=== PATIENT | female | born 1985 | race Caucasian/White ===

== ENCOUNTER → 2020-05-03 16:14 | Outpatient (CLI) | payer OTHER, MEDICAID, SELFPAY ==
[2020-05-03 17:40] LABS: Add Manual Diff / Slide Review NO; Basophils Absolute Auto 100 /uL (0-100); Basophils Percent Auto 0.8 % (0-2); Eosinophils Absolute Auto 500 /uL (0-450); Eosinophils Percent Auto 5.2 % (2-4); Hematocrit 38.3 % (36-46); Hemoglobin 13.2 g/dL (12.0-16.0); Lymphocytes Absolute Auto 3000 /uL (1100-4500); Lymphocytes Percent Auto 28.9 % (25-40); Mean Corpuscular HGB Conc 34.5 % (30-36); Mean Corpuscular Hemoglobin 27.6 PG (26-34); Mean Corpuscular Volume 79.9 fL (80-100); Monocytes Absolute Auto 700 /uL (0-900); Monocytes Percent Auto 7.3 % (3-14); Neutrophils Absolute Auto 6000 /uL (1500-7000); Neutrophils Percent Auto 57.8 % (50-75); Platelet Count 285 X10^3/uL (150-400); Red Blood Cell Count 4.79 X10^6/uL (4.0-5.2); Red Cell Distribution Width 13.3 % (11.6-14.8); White Blood Cell Count 10.3 X10^3/uL (4.5-11.0)
[2020-05-03 18:18] LABS: Alanine Aminotransferase 42 IU/L (<35); Albumin 4.6 g/dL (3.5-5.0); Albumin Globulin Ratio 1.4 (1.0-2.8); Alkaline Phosphatase 76 U/L (38-126); Aspartate Aminotransferase 42 IU/L (14-36); BUN Creatinine Ratio 21.1 (6-22); Bilirubin Total 0.4 mg/dL (0.2-1.3); Blood Urea Nitrogen 15 mg/dL (7-17); Calcium 9.9 mg/dL (8.4-10.2); Carbon Dioxide 25 mmol/L (22-32); Chloride 102 mmol/L (98-107); Estimated Glomerular Filt Rate > 60.0 mL/min (>60); Globulin 3.2 g/dL (1.7-4.1); Glucose 84 mg/dL (70-100); HEMOLYSIS 23 (0-50); Potassium 4.1 mmol/L (3.4-5.1); Sodium 136 mmol/L (137-145); Total Protein 7.8 g/dL (6.3-8.2)
[2020-05-03 19:01] LABS: HIV 1 & 2 Ab/Ag 4th Gen Combo NEGATIVE (NEGATIVE)
[2020-05-04 05:11] LABS: HBsAg Screen Negative (Negative); Hepatitis A Antibody IgM Negative (Negative); Hepatitis B Core Antibody IgM Negative (Negative); Hepatitis C Antibody <0.1 s/co ratio (0.0-0.9)
== END ==
PROVIDERS: Family Provider Family Medicine; PCP Family Medicine; Referring Provider Family Medicine; Visit Provider Family Medicine
DX: F19.11 Other psychoactive substance abuse, in remission (principal)
CPT/HCPCS: 36415; 80053; 80074; 85025; 87389

== ENCOUNTER 2022-05-12 14:30 | Outpatient (RCR) | payer OTHER, MEDICAID, SELFPAY ==
--- NOTE | 2021-12-30 16:39 | PT.OIE ---
Current Diagnoses Hallux valgus (acquired), left foot (12/30/21) Flat foot [pes planus] (acquired), unspecified foot (12/30/21) Other acquired deformities of left foot (12/30/21) Difficulty in walking, not elsewhere classified (12/30/21) Other abnormalities of gait and mobility (12/30/21) Weakness (12/30/21) Visit Care Team Role Provider Type Milton Cuevas MD Family Provider Non-Staff Specialty: Family Practice Address: [address] [place] [address], [address], [place], [address] Email: Pipo Whyte DPM Attending Provider Non-Staff Primary Care Provider Referring Provider Specialty: Podiatry Address: [address] [place] [address], [phone] Email: Physical Therapy Initial Evaluation PT-OP-A Visit Information Start: 12/26/21 17:49 Freq: Status: Active Protocol: Document 12/30/21 15:18 [facility] (Rec: 12/30/21 16:31 [facility] [id number]) Out-Patient Physical Therapy Visit Information Visit Information Visit Type Initial Evaluation Visit Note 24 visits in a year Visit Start Time 15:20 Visit Stop Time 16:02 Total Visit Minutes 42 Visit Number 1 Number of FILM PRODUCER Visits 0 PT-OP-B Current Condition Start: 12/26/21 17:49 Freq: Status: Active Protocol: Document 12/30/21 15:18 [facility] (Rec: 12/30/21 16:31 [facility] [id number]) Current Condition History of Current Condition Onset Date Sep 13 sx Current Complaints s/p L foot surgery History of Current Condition Pt reports foot pain all the time since injury jumping on tramp in where she sprained ankle. She was getting really painful to walk so she couldn 't do her duties for work. 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 She sees Dr. Dao tomorrow. Pt has been wearing her post op shoe mostly but is allowed to wear her sneakers but they feel too tight. Pt likes to color, going to [employer] study, gardening, going for walks ( was limited prior to surgery d /t pain). No other history of joint pain. Has not tried much walking. Prior Treatments and Tests surgery Aug-L foot medial calcaneal slide osteotomy w/Alvarez Calcaneal osteotomy, correction of L hallux valgus w/arthrodesis of first tartsometatarsal jt, L bunion correction, L gastroc recession Treatment Goals Patient/Caregiver Goals Be able to go up/down ladder cart while carrying heavy objects to stock things, start gardening, be able to get up/ down from the ground indep, be able to go for walks, get a good workout routine for good fitness habits Personal Factors Other Personal Factors That May Effect depression, anxiety, Therapy/Recovery schitzophrenia, hx drug abus PT-OP-C Subjective Start: 12/26/21 17:49 Freq: Status: Active Protocol: Document 12/30/21 15:18 [facility] (Rec: 12/30/21 16:31 [facility] [id number]) Patient Questionnaires Foot & Ankle Ability Measure- ADL and Sports FAAM-ADL Score 40/84 FAAM-Sport Score 2 Lower Extremity Functional Scale LEFS Score 23/80 OP-PT Pain Assessment Location L foot/ankle Pain Location Details med & lat ankle, ant ankle and dorsum of foot Intensity 6 Scale Used Numeric (0 - 10) Description Shooting,Tightness,With Movement Description- Other like it has a knot in it Frequency Intermittent Variations/Patterns numbness 4-5th toe & MT Pain Aggravating Factors Standing Other Pain Aggravating Factors wearing shoes, stand>10 min, starting moving, cold Pain Alleviating Factors Cold,Medication Other Pain Alleviating Factors naproxen prn PT-OP-F Manual Assessment Start: 12/26/21 17:49 Freq: Status: Active Protocol: Document 12/30/21 15:18 [facility] (Rec: 12/30/21 16:31 [facility] [id number]) Manual Assessments Soft Tissue Assessment Soft Tissue Mobility Assessment Pt still has some scabbing towards ant aspect of lat scar and med scar Other Manual Assessments Other Manual Assessments 21.1 cm L MT base R 20.9 25.3 cm L malleoli R 24.1 PT-OP-G Mobility & Gait Start: 12/26/21 17:49 Freq: Status: Active Protocol: Document 12/30/21 15:18 [facility] (Rec: 12/30/21 16:31 [facility] [id number]) OP Gait Assessment Comments Gait Comments Dec stance time on LLE and no push off LLE, slow gait PT-OP-K Range of Motion Start: 12/26/21 17:49 Freq: Status: Active Protocol: Document 12/30/21 15:18 [facility] (Rec: 12/30/21 16:31 [facility] [id number]) Ankle and Foot Goniometric Range of Motion Ankle and Foot Right Active Dorsiflexion with Knee Flexed 5 Dorsiflexion with Knee Extended 9 Plantarflexion 50 Inversion 28 Eversion 12 Comments lacking DF to neutral in knee ext positon Left Active Dorsiflexion with Knee Flexed 2 Dorsiflexion with Knee Extended 9 Plantarflexion 50 Inversion 8 Eversion 12 Comments lacking DF to neutral in knee ext positon Toe Range of Motion Toe Right Great Toe MTP Extension Active (degrees) 30 MTP Extension Passive (degrees) 55 Left Great Toe MTP Extension Active (degrees) 10 MTP Extension Passive (degrees) 15 Comments 20 deg valgus PT-OP-L Special Tests Start: 12/26/21 17:49 Freq: Status: Active Protocol: Document 12/30/21 15:18 [facility] (Rec: 12/30/21 16:31 [facility] [id number]) Special Tests Other Special Tests Special Tests 45 deg R HS tightness SLR, 64 Deg L PT-OP-M Strength Start: 12/26/21 17:49 Freq: Status: Active Protocol: Document 12/30/21 15:18 [facility] (Rec: 12/30/21 16:31 [facility] [id number]) Hip Strength Hip Manual Muscle Testing Right Flexion (L2) 4+ Good+ Extension (S1) 4 Good Abduction 4 Good External Rotation 4- Good- Internal Rotation 4 Good Left Flexion (L2) 4- Good- Extension (S1) 3+ Fair+ Abduction 4 Good External Rotation 4- Good- Internal Rotation 3 Fair Knee Strength Knee Manual Muscle Testing Right Flexion (S2) 5 Normal Extension (L3) 5 Normal Left Flexion (S2) 5 Normal Extension (L3) 5 Normal Ankle/Foot Strength Ankle and Foot Manual Muscle Testing Right Dorsiflexion (L4) 5 Normal Plantarflexion (S1) 5 Normal Inversion 5 Normal Eversion (S1) 5 Normal Comments 20 heel raises Left Dorsiflexion (L4) 4 Good Plantarflexion (S1) 3- Fair- Inversion 3+ Fair+ Eversion (S1) 3+ Fair+ Comments pain eversion; unable to do heel raises Toe Strength Toe Manual Muscle Testing Right Great Toe Flexion 5 Normal Extension 5 Normal Left Great Toe Flexion 3+ Fair+ Extension 4- Good- PT-OP-T Assessment and Plan Start: 12/26/21 17:49 Freq: Status: Active Protocol: Document 12/30/21 15:18 [facility] (Rec: 12/30/21 16:31 [facility] [id number]) Physical Therapy Assessment Rehab Potential Rehabilitation Potential Good Evaluation Complexity Number of Personal Factors/Comorbidities 3 or More Number of Body Systems Impaired 4 or More Clinical Presentation at Evaluation Evolving Impairments Impairments Activity Tolerance,Balance, Functional Activities, Functional Mobility,Gait,Pain, ROM,Soft Tissue Mobility, Strength Goals balance Ex Chef Goal (LTG) pt will be able to do SLS 20 sec B w/o LOB to show improved stability. LTG Duration 04/01/22 strength Short Term Goal (STG) Pt will be indep w/HEP STG Duration 01/30/22 Ex Chef Goal (LTG) Pt will score at least 5/5 on BLE MMT to show improved strength to allow pt to do typical activities w/o inc pain. LTG Duration 04/01/22 ROM Short Term Goal (STG) Pt will improve to DF to neutral on L in knee ext position. STG Duration 02/27/22 Fdc Goal (LTG) Pt will have within 5 deg ROM of L ankle to R ankle to improve pt ability to negotiate the community. LTG Duration 04/01/22 work Short Term Goal (STG) Pt will be able to return to light duty work w/pain no greater than 4/10 STG Duration 02/27/22 Ex Chef Goal (LTG) Pt will be able to return to full duty work w/o L foot/ ankle pain greater than 2/10 LTG Duration 04/01/22 gardening Short Term Goal (STG) Pt will be able to get up/down from the ground indep to allow for gardening. STG Duration 02/27/22 Fdc Goal (LTG) Pt will be able to do all tasks for gardening w/o inc pain. LTG Duration 03/29/22 LEFS Impairment 23/80 Short Term Goal (STG) Pt will improved LEFS to at least 45/80 to show improved function. STG Duration 02/27/22 Fdc Goal (LTG) Pt will improved LEFS to at least 70/80 to show improved function. LTG Duration 04/01/22 Assessment Summary Assessment Pt presents 3.5 months s/p L foot medial calcaneal slide osteotomy w/Alvarez Calcaneal osteotomy, correction of L hallux valgus w/arthrodesis of first tartsometatarsal jt, L bunion correction, and L gastroc recession d/t chronic ankle pain over past 20 years after an incident on a [employer] where she sprained her ankle. She has some dec healing of incisions, swelling of L ankle/foot, dec L ankle and toe ROM along w/dec LLE strength overall. She has not been able to wear a tennis shoe d/t swelling in L foot and ankle despite MD clearing her for this. 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 She would benefit from skilled PT to work on swelling, ROM, gait mechanics, LE strength, and balance to return pt to all typical activties w/dec pain. Physical Therapy Plan Frequency and Duration Frequency of Treatment 1-2x/week Duration of Treatment 3 months Plan of Care Start Date 12/30/21 Plan of Care End Date 04/01/22 Therapeutic Interventions Therapeutic Interventions Aquatic Therapy,Balance Training,Gait Training,Home Exercise Program,Joint Mobilizations,Manual Therapy, Neuromuscular Re-education, Patient/Caregiver Education, Self-Care/Home Management,Soft Tissue Mobilization,Taping, Therapeutic Activities, Therapeutic Exercises Modalities Cold Pack/Ice Massage,Electric Stimulation,Hot Packs, Infrared Therapy,Ultrasound Next Visit Focus/Plan Next Note Type Treatment Note Next Visit Plan towel calf stretch, ABCs & circles, tband 4 way, BAPS board, Manual to calf
--- NOTE | 2021-12-30 16:39 | PT.OPPOC ---
Physical, Occupational & Speech Therapy At [facility] Current Diagnoses Hallux valgus (acquired), left foot (12/30/21) Flat foot [pes planus] (acquired), unspecified foot (12/30/21) Other acquired deformities of left foot (12/30/21) Difficulty in walking, not elsewhere classified (12/30/21) Other abnormalities of gait and mobility (12/30/21) Weakness (12/30/21) Visit Care Team Role Provider Type Milton Cuevas MD Family Provider Non-Staff Specialty: Family Practice Address: [address] [place] [address], [address], [place], [address] Email: Pipo Whyte DPM Attending Provider Non-Staff Primary Care Provider Referring Provider Specialty: Podiatry Address: [address] [place] [address], [phone] Email: Plan Of Care PT-OP-T Assessment and Plan Start: 12/26/21 17:49 Freq: Status: Active Protocol: Document 12/30/21 15:18 [facility] (Rec: 12/30/21 16:31 [facility] [id number]) Physical Therapy Assessment Rehab Potential Rehabilitation Potential Good Evaluation Complexity Number of Personal Factors/Comorbidities 3 or More Number of Body Systems Impaired 4 or More Clinical Presentation at Evaluation Evolving Impairments Impairments Activity Tolerance,Balance, Functional Activities, Functional Mobility,Gait,Pain, ROM,Soft Tissue Mobility, Strength Goals balance Nursing Home Goal (LTG) pt will be able to do SLS 20 sec B w/o LOB to show improved stability. LTG Duration 04/01/22 strength Short Term Goal (STG) Pt will be indep w/HEP STG Duration 01/30/22 Nursing Home Goal (LTG) Pt will score at least 5/5 on BLE MMT to show improved strength to allow pt to do typical activities w/o inc pain. LTG Duration 04/01/22 ROM Short Term Goal (STG) Pt will improve to DF to neutral on L in knee ext position. STG Duration 02/27/[address] [employer] Goal (LTG) Pt will have within 5 deg ROM of L ankle to R ankle to improve pt ability to negotiate the community. LTG Duration 04/01/22 work Short Term Goal (STG) Pt will be able to return to light duty work w/pain no greater than 4/10 STG Duration 02/27/[address] [employer] Goal (LTG) Pt will be able to return to full duty work w/o L foot/ ankle pain greater than 2/10 LTG Duration 04/01/22 gardening Short Term Goal (STG) Pt will be able to get up/down from the ground indep to allow for gardening. STG Duration 02/27/[address] [employer] Goal (LTG) Pt will be able to do all tasks for gardening w/o inc pain. LTG Duration 03/29/22 LEFS Impairment 23/80 Short Term Goal (STG) Pt will improved LEFS to at least 45/80 to show improved function. STG Duration 02/27/[address] [employer] Goal (LTG) Pt will improved LEFS to at least 70/80 to show improved function. LTG Duration 04/01/22 Assessment Summary Assessment Pt presents 3.5 months s/p L foot medial calcaneal slide osteotomy w/Alvarez Calcaneal osteotomy, correction of L hallux valgus w/arthrodesis of first tartsometatarsal jt, L bunion correction, and L gastroc recession d/t chronic ankle pain over past 20 years after an incident on a trampoline where she sprained her ankle. She has some dec healing of incisions, swelling of L ankle/foot, dec L ankle and toe ROM along w/dec LLE strength overall. She has not been able to wear a tennis shoe d/t swelling in L foot and ankle despite MD clearing her for this. 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 She would benefit from skilled PT to work on swelling, ROM, gait mechanics, LE strength, and balance to return pt to all typical activties w/dec pain. Physical Therapy Plan Frequency and Duration Frequency of Treatment 1-2x/week Duration of Treatment 3 months Plan of Care Start Date 12/30/21 Plan of Care End Date 04/01/22 Therapeutic Interventions Therapeutic Interventions Aquatic Therapy,Balance Training,Gait Training,Home Exercise Program,Joint Mobilizations,Manual Therapy, Neuromuscular Re-education, Patient/Caregiver Education, Self-Care/Home Management,Soft Tissue Mobilization,Taping, Therapeutic Activities, Therapeutic Exercises Modalities Cold Pack/Ice Massage,Electric Stimulation,Hot Packs, Infrared Therapy,Ultrasound Next Visit Focus/Plan Next Note Type Treatment Note Next Visit Plan towel calf stretch, ABCs & circles, tband 4 way, BAPS board, Manual to calf Plan of Care Dates Plan of Care Start Date 12/30/21 Plan of Care End Date 04/01/22 Electronically Signed by: Bruna Sheikh, PT 12/30/21 [id number] If you are in agreement with this Plan of Care, please return a signed and dated copy. I have reviewed this Plan of Care and certify that the skilled therapy services above are required to meet the patient?s needs. Physician Signature Date Printed Name and Credentials Clinical Instructor Signature Printed Name and Credentials
--- NOTE | 2022-01-02 15:17 | PT.OTN ---
Current Diagnoses Hallux valgus (acquired), left foot (01/02/22) Flat foot [pes planus] (acquired), unspecified foot (01/02/22) Other acquired deformities of left foot (01/02/22) Difficulty in walking, not elsewhere classified (01/02/22) Other abnormalities of gait and mobility (01/02/22) Weakness (01/02/22) Physical Therapy Treatment Note PT-OP-A Visit Information Start: 12/26/21 17:49 Freq: Status: Active Protocol: Document 01/02/22 14:27 [facility] (Rec: 01/02/22 15:17 [facility] [id number]) Out-Patient Physical Therapy Visit Information Visit Information Visit Type Treatment Note Visit Note 24 visits in a year Visit Start Time 14:31 Visit Stop Time 15:14 Total Visit Minutes 43 Visit Number 2 Number of LINING PRINTER Visits 0 PT-OP-B Current Condition Start: 12/26/21 17:49 Freq: Status: Active Protocol: Document 12/30/21 15:18 [facility] (Rec: 12/30/21 16:31 [facility] [id number]) Current Condition History of Current Condition Onset Date Sep 13 sx Current Complaints s/p L foot surgery History of Current Condition Pt reports foot pain all the time since injury jumping on tramp in where she sprained ankle. She was getting really painful to walk so she couldn 't do her duties for work. 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 She sees Dr. Dao tomorrow. Pt has been wearing her post op shoe mostly but is allowed to wear her sneakers but they feel too tight. Pt likes to color, going to [employer] study, gardening, going for walks ( was limited prior to surgery d /t pain). No other history of joint pain. Has not tried much walking. Prior Treatments and Tests surgery Aug-L foot medial calcaneal slide osteotomy w/Alvarez Calcaneal osteotomy, correction of L hallux valgus w/arthrodesis of first tartsometatarsal jt, L bunion correction, L gastroc recession Treatment Goals Patient/Caregiver Goals Be able to go up/down ladder cart while carrying heavy objects to stock things, start gardening, be able to get up/ down from the ground indep, be able to go for walks, get a good workout routine for good fitness habits Personal Factors Other Personal Factors That May Effect depression, anxiety, Therapy/Recovery schitzophrenia, hx drug abus PT-OP-C Subjective Start: 12/26/21 17:49 Freq: Status: Active Protocol: Document 01/02/22 14:27 [facility] (Rec: 01/02/22 15:17 [facility] [id number]) OP-PT Subjective Patient Comments Patient Comments Pt reprots doing a lot of walking at stores this week and her foot was sore. was pleased w/foot at appt PT-OP-F Manual Assessment Start: 12/26/21 17:49 Freq: Status: Active Protocol: Document 12/30/21 15:18 [facility] (Rec: 12/30/21 16:31 [facility] [id number]) Manual Assessments Soft Tissue Assessment Soft Tissue Mobility Assessment Pt still has some scabbing towards ant aspect of lat scar and med scar Other Manual Assessments Other Manual Assessments 21.1 cm L MT base R 20.9 25.3 cm L malleoli R 24.1 PT-OP-G Mobility & Gait Start: 12/26/21 17:49 Freq: Status: Active Protocol: Document 12/30/21 15:18 [facility] (Rec: 12/30/21 16:31 [facility] [id number]) OP Gait Assessment Comments Gait Comments Dec stance time on LLE and no push off LLE, slow gait PT-OP-K Range of Motion Start: 12/26/21 17:49 Freq: Status: Active Protocol: Document 12/30/21 15:18 [facility] (Rec: 12/30/21 16:31 [facility] [id number]) Ankle and Foot Goniometric Range of Motion Ankle and Foot Right Active Dorsiflexion with Knee Flexed 5 Dorsiflexion with Knee Extended 9 Plantarflexion 50 Inversion 28 Eversion 12 Comments lacking DF to neutral in knee ext positon Left Active Dorsiflexion with Knee Flexed 2 Dorsiflexion with Knee Extended 9 Plantarflexion 50 Inversion 8 Eversion 12 Comments lacking DF to neutral in knee ext positon Toe Range of Motion Toe Right Great Toe MTP Extension Active (degrees) 30 MTP Extension Passive (degrees) 55 Left Great Toe MTP Extension Active (degrees) 10 MTP Extension Passive (degrees) 15 Comments 20 deg valgus PT-OP-L Special Tests Start: 12/26/21 17:49 Freq: Status: Active Protocol: Document 12/30/21 15:18 [facility] (Rec: 12/30/21 16:31 [facility] [id number]) Special Tests Other Special Tests Special Tests 45 deg R HS tightness SLR, 64 Deg L PT-OP-M Strength Start: 12/26/21 17:49 Freq: Status: Active Protocol: Document 12/30/21 15:18 [facility] (Rec: 12/30/21 16:31 [facility] [id number]) Hip Strength Hip Manual Muscle Testing Right Flexion (L2) 4+ Good+ Extension (S1) 4 Good Abduction 4 Good External Rotation 4- Good- Internal Rotation 4 Good Left Flexion (L2) 4- Good- Extension (S1) 3+ Fair+ Abduction 4 Good External Rotation 4- Good- Internal Rotation 3 Fair Knee Strength Knee Manual Muscle Testing Right Flexion (S2) 5 Normal Extension (L3) 5 Normal Left Flexion (S2) 5 Normal Extension (L3) 5 Normal Ankle/Foot Strength Ankle and Foot Manual Muscle Testing Right Dorsiflexion (L4) 5 Normal Plantarflexion (S1) 5 Normal Inversion 5 Normal Eversion (S1) 5 Normal Comments 20 heel raises Left Dorsiflexion (L4) 4 Good Plantarflexion (S1) 3- Fair- Inversion 3+ Fair+ Eversion (S1) 3+ Fair+ Comments pain eversion; unable to do heel raises Toe Strength Toe Manual Muscle Testing Right Great Toe Flexion 5 Normal Extension 5 Normal Left Great Toe Flexion 3+ Fair+ Extension 4- Good- PT-OP-Q Treatments Start: 12/26/21 17:49 Freq: Status: Active Protocol: Document 01/02/22 14:27 [facility] (Rec: 01/02/22 15:17 [facility] [id number]) Therapeutic Exercises Sitting Exercises BAPs Sitting Exercise Name 1. inver/eversion 2. PF/DF Side left Reps/Minutes 15 ea tband Sitting Exercise Name DF, PF Side left Reps/Minutes 10 ea stretch Sitting Exercise Name calf Side bilateral Equipment Used towel Reps/Minutes 30 secx2 ROM Sitting Exercise Name 1. ABCs 2. circles Side left Reps/Minutes 1. 1x 2. 15 ea direction Manual Therapy Treatment Soft Tissue Mobilization calf Body Location L Mobilization Type Rolling Intensity/Depth Moderate scar Body Location lat & post scar Mobilization Type Myofascial Release,Rolling Intensity/Depth Superficial Body Position Supine plantar fascia Body Location L Mobilization Type Rolling Intensity/Depth Moderate Body Position Supine Manual Techniques PROM Type L ankle PF, DF, inversion, eversion gentle PT-OP-T Assessment and Plan Start: 12/26/21 17:49 Freq: Status: Active Protocol: Document 01/02/22 14:27 [facility] (Rec: 01/02/22 15:17 [facility] [id number]) Physical Therapy Assessment Goals balance Logging Engineer Goal (LTG) pt will be able to do SLS 20 sec B w/o LOB to show improved stability. LTG Duration 04/01/22 strength Short Term Goal (STG) Pt will be indep w/HEP STG Duration 01/30/22 Logging Engineer Goal (LTG) Pt will score at least 5/5 on BLE MMT to show improved strength to allow pt to do typical activities w/o inc pain. LTG Duration 04/01/22 ROM Short Term Goal (STG) Pt will improve to DF to neutral on L in knee ext position. STG Duration 02/27/22 Senior Living Goal (LTG) Pt will have within 5 deg ROM of L ankle to R ankle to improve pt ability to negotiate the community. LTG Duration 04/01/22 work Short Term Goal (STG) Pt will be able to return to light duty work w/pain no greater than 4/10 STG Duration 02/27/22 Senior Living Goal (LTG) Pt will be able to return to full duty work w/o L foot/ ankle pain greater than 2/10 LTG Duration 04/01/22 gardening Short Term Goal (STG) Pt will be able to get up/down from the ground indep to allow for gardening. STG Duration 02/27/22 Logging Engineer Goal (LTG) Pt will be able to do all tasks for gardening w/o inc pain. LTG Duration 03/29/22 LEFS Impairment 23/80 Short Term Goal (STG) Pt will improved LEFS to at least 45/80 to show improved function. STG Duration 02/27/22 Logging Engineer Goal (LTG) Pt will improved LEFS to at least 70/80 to show improved function. LTG Duration 04/01/22 Assessment Summary Assessment Pt had much improved gait after manual and felt relief. Improved DF and PF but very rigid for inversion/eversion. She did well with exercises but limited in circles w/lat movements. Physical Therapy Plan Frequency and Duration Frequency of Treatment 1-2x/week Duration of Treatment 3 months Plan of Care Start Date 12/30/21 Plan of Care End Date 04/01/22 Next Visit Focus/Plan Next Note Type Treatment Note Next Visit Plan review exercises, manual to calf as tolerated and PROM
--- NOTE | 2022-01-07 15:21 | PT.OTN ---
Current Diagnoses Hallux valgus (acquired), left foot (01/07/22) Flat foot [pes planus] (acquired), unspecified foot (01/07/22) Other acquired deformities of left foot (01/07/22) Difficulty in walking, not elsewhere classified (01/07/22) Other abnormalities of gait and mobility (01/07/22) Weakness (01/07/22) Physical Therapy Treatment Note PT-OP-A Visit Information Start: 12/26/21 17:49 Freq: Status: Active Protocol: Document 01/07/22 14:39 [facility] (Rec: 01/07/22 15:21 [facility] [id number]) Out-Patient Physical Therapy Visit Information Visit Information Visit Type Treatment Note Visit Note 24 visits in a year Visit Start Time 14:35 Visit Stop Time 15:15 Total Visit Minutes 40 Visit Number 3 Number of DIESEL TRACTOR OPERATOR Visits 0 PT-OP-B Current Condition Start: 12/26/21 17:49 Freq: Status: Active Protocol: Document 12/30/21 15:18 [facility] (Rec: 12/30/21 16:31 [facility] [id number]) Current Condition History of Current Condition Onset Date Sep 13 sx Current Complaints s/p L foot surgery History of Current Condition Pt reports foot pain all the time since injury jumping on tramp in where she sprained ankle. She was getting really painful to walk so she couldn 't do her duties for work. 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 She sees Dr. Dao tomorrow. Pt has been wearing her post op shoe mostly but is allowed to wear her sneakers but they feel too tight. Pt likes to color, going to [employer] study, gardening, going for walks ( was limited prior to surgery d /t pain). No other history of joint pain. Has not tried much walking. Prior Treatments and Tests surgery Aug-L foot medial calcaneal slide osteotomy w/Alvarez Calcaneal osteotomy, correction of L hallux valgus w/arthrodesis of first tartsometatarsal jt, L bunion correction, L gastroc recession Treatment Goals Patient/Caregiver Goals Be able to go up/down ladder cart while carrying heavy objects to stock things, start gardening, be able to get up/ down from the ground indep, be able to go for walks, get a good workout routine for good fitness habits Personal Factors Other Personal Factors That May Effect depression, anxiety, Therapy/Recovery schitzophrenia, hx drug abus PT-OP-C Subjective Start: 12/26/21 17:49 Freq: Status: Active Protocol: Document 01/07/22 14:39 [facility] (Rec: 01/07/22 15:21 [facility] [id number]) OP-PT Subjective Patient Comments Patient Comments Pt reports compliance w/ exercises and notes she feels like she has more motion now PT-OP-F Manual Assessment Start: 12/26/21 17:49 Freq: Status: Active Protocol: Document 12/30/21 15:18 [facility] (Rec: 12/30/21 16:31 [facility] [id number]) Manual Assessments Soft Tissue Assessment Soft Tissue Mobility Assessment Pt still has some scabbing towards ant aspect of lat scar and med scar Other Manual Assessments Other Manual Assessments 21.1 cm L MT base R 20.9 25.3 cm L malleoli R 24.1 PT-OP-G Mobility & Gait Start: 12/26/21 17:49 Freq: Status: Active Protocol: Document 12/30/21 15:18 [facility] (Rec: 12/30/21 16:31 [facility] [id number]) OP Gait Assessment Comments Gait Comments Dec stance time on LLE and no push off LLE, slow gait PT-OP-K Range of Motion Start: 12/26/21 17:49 Freq: Status: Active Protocol: Document 12/30/21 15:18 [facility] (Rec: 12/30/21 16:31 [facility] [id number]) Ankle and Foot Goniometric Range of Motion Ankle and Foot Right Active Dorsiflexion with Knee Flexed 5 Dorsiflexion with Knee Extended 9 Plantarflexion 50 Inversion 28 Eversion 12 Comments lacking DF to neutral in knee ext positon Left Active Dorsiflexion with Knee Flexed 2 Dorsiflexion with Knee Extended 9 Plantarflexion 50 Inversion 8 Eversion 12 Comments lacking DF to neutral in knee ext positon Toe Range of Motion Toe Right Great Toe MTP Extension Active (degrees) 30 MTP Extension Passive (degrees) 55 Left Great Toe MTP Extension Active (degrees) 10 MTP Extension Passive (degrees) 15 Comments 20 deg valgus PT-OP-L Special Tests Start: 12/26/21 17:49 Freq: Status: Active Protocol: Document 12/30/21 15:18 [facility] (Rec: 12/30/21 16:31 [facility] [id number]) Special Tests Other Special Tests Special Tests 45 deg R HS tightness SLR, 64 Deg L PT-OP-M Strength Start: 12/26/21 17:49 Freq: Status: Active Protocol: Document 12/30/21 15:18 [facility] (Rec: 12/30/21 16:31 [facility] [id number]) Hip Strength Hip Manual Muscle Testing Right Flexion (L2) 4+ Good+ Extension (S1) 4 Good Abduction 4 Good External Rotation 4- Good- Internal Rotation 4 Good Left Flexion (L2) 4- Good- Extension (S1) 3+ Fair+ Abduction 4 Good External Rotation 4- Good- Internal Rotation 3 Fair Knee Strength Knee Manual Muscle Testing Right Flexion (S2) 5 Normal Extension (L3) 5 Normal Left Flexion (S2) 5 Normal Extension (L3) 5 Normal Ankle/Foot Strength Ankle and Foot Manual Muscle Testing Right Dorsiflexion (L4) 5 Normal Plantarflexion (S1) 5 Normal Inversion 5 Normal Eversion (S1) 5 Normal Comments 20 heel raises Left Dorsiflexion (L4) 4 Good Plantarflexion (S1) 3- Fair- Inversion 3+ Fair+ Eversion (S1) 3+ Fair+ Comments pain eversion; unable to do heel raises Toe Strength Toe Manual Muscle Testing Right Great Toe Flexion 5 Normal Extension 5 Normal Left Great Toe Flexion 3+ Fair+ Extension 4- Good- PT-OP-Q Treatments Start: 12/26/21 17:49 Freq: Status: Active Protocol: Document 01/07/22 14:39 [facility] (Rec: 01/07/22 15:21 [facility] [id number]) Therapeutic Exercises Sitting Exercises BAPs Sitting Exercise Name 1. inver/eversion 2. PF/DF 3. circles Side left Reps/Minutes 1 &2.15 ea 3. 8 ea tband Sitting Exercise Name DF, Side left Equipment Used L2 Reps/Minutes 15 ROM Sitting Exercise Name 1. ABCs 2. circles Side left Reps/Minutes 1. 1x 2. 15 ea direction Standing Exercises heel raises Side bilateral Reps/Minutes 8 Comments stopped d/t foot pain Manual Therapy Treatment Soft Tissue Mobilization scar Body Location lat & post scar & med proximal scar Mobilization Type Myofascial Release,Rolling Intensity/Depth Superficial Body Position Supine plantar fascia Body Location L Mobilization Type Rolling Intensity/Depth Moderate Body Position Supine Manual Techniques PROM Type L ankle PF, DF, inversion, eversion gentle Neuro Re-Education Treatment Balance Activities foam Comments WBOS & NBOS w/EC staggered stance w/head turns B bosu Comments standing balance 2x45 sec PT-OP-T Assessment and Plan Start: 12/26/21 17:49 Freq: Status: Active Protocol: Document 01/07/22 14:39 [facility] (Rec: 01/07/22 15:21 [facility] [id number]) Physical Therapy Assessment Goals balance Fdc Goal (LTG) pt will be able to do SLS 20 sec B w/o LOB to show improved stability. LTG Duration 04/01/22 strength Short Term Goal (STG) Pt will be indep w/HEP STG Duration 01/30/22 Sensor Operator Goal (LTG) Pt will score at least 5/5 on BLE MMT to show improved strength to allow pt to do typical activities w/o inc pain. LTG Duration 04/01/22 ROM Short Term Goal (STG) Pt will improve to DF to neutral on L in knee ext position. STG Duration 02/27/22 Fdc Goal (LTG) Pt will have within 5 deg ROM of L ankle to R ankle to improve pt ability to negotiate the community. LTG Duration 04/01/22 work Short Term Goal (STG) Pt will be able to return to light duty work w/pain no greater than 4/10 STG Duration 02/27/22 Sensor Operator Goal (LTG) Pt will be able to return to full duty work w/o L foot/ ankle pain greater than 2/10 LTG Duration 04/01/22 gardening Short Term Goal (STG) Pt will be able to get up/down from the ground indep to allow for gardening. STG Duration 02/27/22 Fdc Goal (LTG) Pt will be able to do all tasks for gardening w/o inc pain. LTG Duration 03/29/22 LEFS Impairment 23/80 Short Term Goal (STG) Pt will improved LEFS to at least 45/80 to show improved function. STG Duration 02/27/22 Fdc Goal (LTG) Pt will improved LEFS to at least 70/80 to show improved function. LTG Duration 04/01/22 Assessment Summary Assessment Pt showed improved ROM today but still mostly limted w/ inversion/eversion. She did well with exercise performance and did not require cues. pain w/heel raises so discontinue for now. She was nervous w/balance but improved w/performance. Physical Therapy Plan Frequency and Duration Frequency of Treatment 1-2x/week Duration of Treatment 3 months Plan of Care Start Date 12/30/21 Plan of Care End Date 04/01/22 Next Visit Focus/Plan Next Note Type Treatment Note Next Visit Plan cont to work balance & ROM and ankle stability and manual for foot mobility
--- NOTE | 2022-01-09 16:02 | PT.OTN ---
Current Diagnoses Hallux valgus (acquired), left foot (01/09/22) Flat foot [pes planus] (acquired), unspecified foot (01/09/22) Other acquired deformities of left foot (01/09/22) Difficulty in walking, not elsewhere classified (01/09/22) Other abnormalities of gait and mobility (01/09/22) Weakness (01/09/22) Physical Therapy Treatment Note PT-OP-A Visit Information Start: 12/26/21 17:49 Freq: Status: Active Protocol: Document 01/09/22 15:25 [facility] (Rec: 01/09/22 16:02 [facility] [id number]) Out-Patient Physical Therapy Visit Information Visit Information Visit Type Treatment Note Visit Note 24 visits in a year Visit Start Time 15:15 Visit Stop Time 15:55 Total Visit Minutes 40 Visit Number 4 Number of WAX ROOM SUPERVISOR Visits 1 PT-OP-B Current Condition Start: 12/26/21 17:49 Freq: Status: Active Protocol: Document 12/30/21 15:18 [facility] (Rec: 12/30/21 16:31 [facility] [id number]) Current Condition History of Current Condition Onset Date Sep 13 sx Current Complaints s/p L foot surgery History of Current Condition Pt reports foot pain all the time since injury jumping on tramp in where she sprained ankle. She was getting really painful to walk so she couldn 't do her duties for work. 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 She sees Dr. Dao tomorrow. Pt has been wearing her post op shoe mostly but is allowed to wear her sneakers but they feel too tight. Pt likes to color, going to [employer] study, gardening, going for walks ( was limited prior to surgery d /t pain). No other history of joint pain. Has not tried much walking. Prior Treatments and Tests surgery Aug-L foot medial calcaneal slide osteotomy w/Alvarez Calcaneal osteotomy, correction of L hallux valgus w/arthrodesis of first tartsometatarsal jt, L bunion correction, L gastroc recession Treatment Goals Patient/Caregiver Goals Be able to go up/down ladder cart while carrying heavy objects to stock things, start gardening, be able to get up/ down from the ground indep, be able to go for walks, get a good workout routine for good fitness habits Personal Factors Other Personal Factors That May Effect depression, anxiety, Therapy/Recovery schitzophrenia, hx drug abus PT-OP-C Subjective Start: 12/26/21 17:49 Freq: Status: Active Protocol: Document 01/09/22 15:25 [facility] (Rec: 01/09/22 16:02 [facility] [id number]) OP-PT Subjective Patient Comments Patient Comments Pt states she was in the shower this morning and felt a popping that was painful but the pain went away. PT-OP-F Manual Assessment Start: 12/26/21 17:49 Freq: Status: Active Protocol: Document 12/30/21 15:18 [facility] (Rec: 12/30/21 16:31 [facility] [id number]) Manual Assessments Soft Tissue Assessment Soft Tissue Mobility Assessment Pt still has some scabbing towards ant aspect of lat scar and med scar Other Manual Assessments Other Manual Assessments 21.1 cm L MT base R 20.9 25.3 cm L malleoli R 24.1 PT-OP-G Mobility & Gait Start: 12/26/21 17:49 Freq: Status: Active Protocol: Document 12/30/21 15:18 [facility] (Rec: 12/30/21 16:31 [facility] [id number]) OP Gait Assessment Comments Gait Comments Dec stance time on LLE and no push off LLE, slow gait PT-OP-K Range of Motion Start: 12/26/21 17:49 Freq: Status: Active Protocol: Document 12/30/21 15:18 [facility] (Rec: 12/30/21 16:31 [facility] [id number]) Ankle and Foot Goniometric Range of Motion Ankle and Foot Right Active Dorsiflexion with Knee Flexed 5 Dorsiflexion with Knee Extended 9 Plantarflexion 50 Inversion 28 Eversion 12 Comments lacking DF to neutral in knee ext positon Left Active Dorsiflexion with Knee Flexed 2 Dorsiflexion with Knee Extended 9 Plantarflexion 50 Inversion 8 Eversion 12 Comments lacking DF to neutral in knee ext positon Toe Range of Motion Toe Right Great Toe MTP Extension Active (degrees) 30 MTP Extension Passive (degrees) 55 Left Great Toe MTP Extension Active (degrees) 10 MTP Extension Passive (degrees) 15 Comments 20 deg valgus PT-OP-L Special Tests Start: 12/26/21 17:49 Freq: Status: Active Protocol: Document 12/30/21 15:18 [facility] (Rec: 12/30/21 16:31 [facility] [id number]) Special Tests Other Special Tests Special Tests 45 deg R HS tightness SLR, 64 Deg L PT-OP-M Strength Start: 12/26/21 17:49 Freq: Status: Active Protocol: Document 12/30/21 15:18 [facility] (Rec: 12/30/21 16:31 [facility] [id number]) Hip Strength Hip Manual Muscle Testing Right Flexion (L2) 4+ Good+ Extension (S1) 4 Good Abduction 4 Good External Rotation 4- Good- Internal Rotation 4 Good Left Flexion (L2) 4- Good- Extension (S1) 3+ Fair+ Abduction 4 Good External Rotation 4- Good- Internal Rotation 3 Fair Knee Strength Knee Manual Muscle Testing Right Flexion (S2) 5 Normal Extension (L3) 5 Normal Left Flexion (S2) 5 Normal Extension (L3) 5 Normal Ankle/Foot Strength Ankle and Foot Manual Muscle Testing Right Dorsiflexion (L4) 5 Normal Plantarflexion (S1) 5 Normal Inversion 5 Normal Eversion (S1) 5 Normal Comments 20 heel raises Left Dorsiflexion (L4) 4 Good Plantarflexion (S1) 3- Fair- Inversion 3+ Fair+ Eversion (S1) 3+ Fair+ Comments pain eversion; unable to do heel raises Toe Strength Toe Manual Muscle Testing Right Great Toe Flexion 5 Normal Extension 5 Normal Left Great Toe Flexion 3+ Fair+ Extension 4- Good- PT-OP-Q Treatments Start: 12/26/21 17:49 Freq: Status: Active Protocol: Document 01/09/22 15:25 [facility] (Rec: 01/09/22 16:02 [facility] [id number]) Therapeutic Exercises Sitting Exercises BAPs Sitting Exercise Name 1. inver/eversion 2. PF/DF 3. circles Side left Reps/Minutes 1 &2.15 ea 3. 8 ea stretch Sitting Exercise Name calf Side bilateral Equipment Used towel Reps/Minutes 30 secx2 ROM Sitting Exercise Name 1. ABCs 2. circles Side left Reps/Minutes 1. 1x 2. 15 ea direction Standing Exercises heel raises Side bilateral Reps/Minutes 5x Comments stopped d/t foot pain Manual Therapy Treatment Soft Tissue Mobilization calf Body Location L Mobilization Type Rolling Intensity/Depth Moderate scar Body Location lat & post scar & med proximal scar Mobilization Type Myofascial Release,Rolling Intensity/Depth Superficial Body Position Supine plantar fascia Body Location L Mobilization Type Rolling Intensity/Depth Moderate Body Position Supine Manual Techniques PROM Type L ankle PF, DF, inversion, eversion gentle Neuro Re-Education Treatment Balance Activities Lena Disc Reps/Duration x1' ea Comments 1. one foot on disc, one on floor 2. two feet on small yellow/ blue discs 3. two feet on large lena disc 4. SLS-too painful on L PT-OP-T Assessment and Plan Start: 12/26/21 17:49 Freq: Status: Active Protocol: Document 01/09/22 15:25 [facility] (Rec: 01/09/22 16:02 [facility] [id number]) Physical Therapy Assessment Goals balance Prison Goal (LTG) pt will be able to do SLS 20 sec B w/o LOB to show improved stability. LTG Duration 04/01/22 strength Short Term Goal (STG) Pt will be indep w/HEP STG Duration 01/30/22 Welt Edge Rounder Goal (LTG) Pt will score at least 5/5 on BLE MMT to show improved strength to allow pt to do typical activities w/o inc pain. LTG Duration 04/01/22 ROM Short Term Goal (STG) Pt will improve to DF to neutral on L in knee ext position. STG Duration 02/27/22 Welt Edge Rounder Goal (LTG) Pt will have within 5 deg ROM of L ankle to R ankle to improve pt ability to negotiate the community. LTG Duration 04/01/22 work Short Term Goal (STG) Pt will be able to return to light duty work w/pain no greater than 4/10 STG Duration 02/27/22 Prison Goal (LTG) Pt will be able to return to full duty work w/o L foot/ ankle pain greater than 2/10 LTG Duration 04/01/22 gardening Short Term Goal (STG) Pt will be able to get up/down from the ground indep to allow for gardening. STG Duration 02/27/22 Welt Edge Rounder Goal (LTG) Pt will be able to do all tasks for gardening w/o inc pain. LTG Duration 03/29/22 LEFS Impairment 23/80 Short Term Goal (STG) Pt will improved LEFS to at least 45/80 to show improved function. STG Duration 02/27/22 Prison Goal (LTG) Pt will improved LEFS to at least 70/80 to show improved function. LTG Duration 04/01/22 Assessment Summary Assessment Pt continues to be limited in inversion/eversion. She requires verbal and manual cues during ankle circles or will just PF/DF vs [place]. Continues to have pain with heel raises but pain is felt in 5th digit this session vs 1st. Physical Therapy Plan Frequency and Duration Frequency of Treatment 1-2x/week Duration of Treatment 3 months Plan of Care Start Date 12/30/21 Plan of Care End Date 04/01/22 Therapeutic Interventions Therapeutic Interventions Aquatic Therapy,Balance Training,Gait Training,Home Exercise Program,Joint Mobilizations,Manual Therapy, Neuromuscular Re-education, Patient/Caregiver Education, Self-Care/Home Management,Soft Tissue Mobilization,Taping, Therapeutic Activities, Therapeutic Exercises Modalities Cold Pack/Ice Massage,Electric Stimulation,Hot Packs, Infrared Therapy,Ultrasound Next Visit Focus/Plan Next Note Type Treatment Note Next Visit Plan cont to work balance & ROM and ankle stability and manual for foot mobility
--- NOTE | 2022-01-13 14:30 | PT.OTN ---
Current Diagnoses Hallux valgus (acquired), left foot (01/13/22) Flat foot [pes planus] (acquired), unspecified foot (01/13/22) Other acquired deformities of left foot (01/13/22) Difficulty in walking, not elsewhere classified (01/13/22) Other abnormalities of gait and mobility (01/13/22) Weakness (01/13/22) Physical Therapy Treatment Note PT-OP-A Visit Information Start: 12/26/21 17:49 Freq: Status: Active Protocol: Document 01/13/22 13:00 [facility] (Rec: 01/13/22 14:14 [facility] [id number]) Out-Patient Physical Therapy Visit Information Visit Information Visit Type Treatment Note Visit Note 24 visits in a year Visit Start Time 13:01 Visit Stop Time 13:44 Total Visit Minutes 43 Visit Number 5 Number of CARBONIZER Visits 0 PT-OP-B Current Condition Start: 12/26/21 17:49 Freq: Status: Active Protocol: Document 12/30/21 15:18 [facility] (Rec: 12/30/21 16:31 [facility] [id number]) Current Condition History of Current Condition Onset Date Sep 13 sx Current Complaints s/p L foot surgery History of Current Condition Pt reports foot pain all the time since injury jumping on tramp in where she sprained ankle. She was getting really painful to walk so she couldn 't do her duties for work. 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 She sees Dr. Dao tomorrow. Pt has been wearing her post op shoe mostly but is allowed to wear her sneakers but they feel too tight. Pt likes to color, going to [employer] study, gardening, going for walks ( was limited prior to surgery d /t pain). No other history of joint pain. Has not tried much walking. Prior Treatments and Tests surgery Aug-L foot medial calcaneal slide osteotomy w/Alvarez Calcaneal osteotomy, correction of L hallux valgus w/arthrodesis of first tartsometatarsal jt, L bunion correction, L gastroc recession Treatment Goals Patient/Caregiver Goals Be able to go up/down ladder cart while carrying heavy objects to stock things, start gardening, be able to get up/ down from the ground indep, be able to go for walks, get a good workout routine for good fitness habits Personal Factors Other Personal Factors That May Effect depression, anxiety, Therapy/Recovery schitzophrenia, hx drug abus PT-OP-C Subjective Start: 12/26/21 17:49 Freq: Status: Active Protocol: Document 01/13/22 13:00 [facility] (Rec: 01/13/22 14:14 [facility] [id number]) OP-PT Subjective Patient Comments Patient Comments Pt reprots she feels like the manual last session helped her foot move better. PT-OP-F Manual Assessment Start: 12/26/21 17:49 Freq: Status: Active Protocol: Document 12/30/21 15:18 [facility] (Rec: 12/30/21 16:31 [facility] [id number]) Manual Assessments Soft Tissue Assessment Soft Tissue Mobility Assessment Pt still has some scabbing towards ant aspect of lat scar and med scar Other Manual Assessments Other Manual Assessments 21.1 cm L MT base R 20.9 25.3 cm L malleoli R 24.1 PT-OP-G Mobility & Gait Start: 12/26/21 17:49 Freq: Status: Active Protocol: Document 12/30/21 15:18 [facility] (Rec: 12/30/21 16:31 [facility] [id number]) OP Gait Assessment Comments Gait Comments Dec stance time on LLE and no push off LLE, slow gait PT-OP-K Range of Motion Start: 12/26/21 17:49 Freq: Status: Active Protocol: Document 12/30/21 15:18 [facility] (Rec: 12/30/21 16:31 [facility] [id number]) Ankle and Foot Goniometric Range of Motion Ankle and Foot Right Active Dorsiflexion with Knee Flexed 5 Dorsiflexion with Knee Extended 9 Plantarflexion 50 Inversion 28 Eversion 12 Comments lacking DF to neutral in knee ext positon Left Active Dorsiflexion with Knee Flexed 2 Dorsiflexion with Knee Extended 9 Plantarflexion 50 Inversion 8 Eversion 12 Comments lacking DF to neutral in knee ext positon Toe Range of Motion Toe Right Great Toe MTP Extension Active (degrees) 30 MTP Extension Passive (degrees) 55 Left Great Toe MTP Extension Active (degrees) 10 MTP Extension Passive (degrees) 15 Comments 20 deg valgus PT-OP-L Special Tests Start: 12/26/21 17:49 Freq: Status: Active Protocol: Document 12/30/21 15:18 [facility] (Rec: 12/30/21 16:31 [facility] [id number]) Special Tests Other Special Tests Special Tests 45 deg R HS tightness SLR, 64 Deg L PT-OP-M Strength Start: 12/26/21 17:49 Freq: Status: Active Protocol: Document 12/30/21 15:18 [facility] (Rec: 12/30/21 16:31 [facility] [id number]) Hip Strength Hip Manual Muscle Testing Right Flexion (L2) 4+ Good+ Extension (S1) 4 Good Abduction 4 Good External Rotation 4- Good- Internal Rotation 4 Good Left Flexion (L2) 4- Good- Extension (S1) 3+ Fair+ Abduction 4 Good External Rotation 4- Good- Internal Rotation 3 Fair Knee Strength Knee Manual Muscle Testing Right Flexion (S2) 5 Normal Extension (L3) 5 Normal Left Flexion (S2) 5 Normal Extension (L3) 5 Normal Ankle/Foot Strength Ankle and Foot Manual Muscle Testing Right Dorsiflexion (L4) 5 Normal Plantarflexion (S1) 5 Normal Inversion 5 Normal Eversion (S1) 5 Normal Comments 20 heel raises Left Dorsiflexion (L4) 4 Good Plantarflexion (S1) 3- Fair- Inversion 3+ Fair+ Eversion (S1) 3+ Fair+ Comments pain eversion; unable to do heel raises Toe Strength Toe Manual Muscle Testing Right Great Toe Flexion 5 Normal Extension 5 Normal Left Great Toe Flexion 3+ Fair+ Extension 4- Good- PT-OP-Q Treatments Start: 12/26/21 17:49 Freq: Status: Active Protocol: Document 01/13/22 13:00 [facility] (Rec: 01/13/22 14:14 [facility] [id number]) Therapeutic Exercises Sitting Exercises BAPs Sitting Exercise Name 1. inver/eversion 2. PF/DF 3. circles Side left Reps/Minutes 1 &2.15 ea 3. 8 ea stretch Sitting Exercise Name plantar fascia Side left Reps/Minutes 30 sec ROM Sitting Exercise Name 1. big toe DF, 2. other toe DF Side left Reps/Minutes 8 ea Standing Exercises stretch Side left Reps/Minutes 30 sec Comments fwd lean Manual Therapy Treatment Soft Tissue Mobilization calf Body Location L Mobilization Type Rolling Intensity/Depth Moderate scar Body Location lat & post scar & med proximal scar Mobilization Type Myofascial Release,Rolling Intensity/Depth Superficial Body Position Supine plantar fascia Body Location L Mobilization Type Rolling Intensity/Depth Moderate Body Position Supine Manual Techniques PROM Type L ankle PF, DF, inversion, eversion gentle Neuro Re-Education Treatment Balance Activities Lena Disc Comments 1. two feet on small yellow/ blue discs 2. two feet on large lena disc foam Comments WBOS & NBOS & staggered stance w/EC bosu Comments standing balance 2. wt shift fwd/back 3. mini squats PT-OP-T Assessment and Plan Start: 12/26/21 17:49 Freq: Status: Active Protocol: Document 01/13/22 13:00 [facility] (Rec: 01/13/22 14:14 [facility] [id number]) Physical Therapy Assessment Goals balance Glass Inspector Goal (LTG) pt will be able to do SLS 20 sec B w/o LOB to show improved stability. LTG Duration 04/01/22 strength Short Term Goal (STG) Pt will be indep w/HEP STG Duration 01/30/22 Shelter Goal (LTG) Pt will score at least 5/5 on BLE MMT to show improved strength to allow pt to do typical activities w/o inc pain. LTG Duration 04/01/22 ROM Short Term Goal (STG) Pt will improve to DF to neutral on L in knee ext position. STG Duration 02/27/22 Shelter Goal (LTG) Pt will have within 5 deg ROM of L ankle to R ankle to improve pt ability to negotiate the community. LTG Duration 04/01/22 work Short Term Goal (STG) Pt will be able to return to light duty work w/pain no greater than 4/10 STG Duration 02/27/22 Glass Inspector Goal (LTG) Pt will be able to return to full duty work w/o L foot/ ankle pain greater than 2/10 LTG Duration 04/01/22 gardening Short Term Goal (STG) Pt will be able to get up/down from the ground indep to allow for gardening. STG Duration 02/27/22 Shelter Goal (LTG) Pt will be able to do all tasks for gardening w/o inc pain. LTG Duration 03/29/22 LEFS Impairment 23/80 Short Term Goal (STG) Pt will improved LEFS to at least 45/80 to show improved function. STG Duration 02/27/22 Shelter Goal (LTG) Pt will improved LEFS to at least 70/80 to show improved function. LTG Duration 04/01/22 Assessment Summary Assessment Pt did have some apin in big toe region w/exercises but improves w/rest and stretches. Encouraged to ice ater therapy and edu that soreness may be normal w/therapy. cont encoruage to walk more Physical Therapy Plan Frequency and Duration Frequency of Treatment 1-2x/week Duration of Treatment 3 months Plan of Care Start Date 12/30/21 Plan of Care End Date 04/01/22 Next Visit Focus/Plan Next Note Type Treatment Note Next Visit Plan cont to work balance & ROM and ankle stability and manual for foot mobility
--- NOTE | 2022-01-16 16:02 | PT.OTN ---
Current Diagnoses Hallux valgus (acquired), left foot (01/16/22) Flat foot [pes planus] (acquired), unspecified foot (01/16/22) Other acquired deformities of left foot (01/16/22) Difficulty in walking, not elsewhere classified (01/16/22) Other abnormalities of gait and mobility (01/16/22) Weakness (01/16/22) Physical Therapy Treatment Note PT-OP-A Visit Information Start: 12/26/21 17:49 Freq: Status: Active Protocol: Document 01/16/22 15:18 [facility] (Rec: 01/16/22 16:02 [facility] [id number]) Out-Patient Physical Therapy Visit Information Visit Information Visit Type Treatment Note Visit Note 24 visits in a year Visit Start Time 15:17 Visit Stop Time 15:58 Total Visit Minutes 41 Visit Number 6 Number of RN SUPPLEMENTAL Visits 1 PT-OP-B Current Condition Start: 12/26/21 17:49 Freq: Status: Active Protocol: Document 12/30/21 15:18 [facility] (Rec: 12/30/21 16:31 [facility] [id number]) Current Condition History of Current Condition Onset Date Sep 13 sx Current Complaints s/p L foot surgery History of Current Condition Pt reports foot pain all the time since injury jumping on tramp in where she sprained ankle. She was getting really painful to walk so she couldn 't do her duties for work. 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 She sees Dr. Dao tomorrow. Pt has been wearing her post op shoe mostly but is allowed to wear her sneakers but they feel too tight. Pt likes to color, going to [employer] study, gardening, going for walks ( was limited prior to surgery d /t pain). No other history of joint pain. Has not tried much walking. Prior Treatments and Tests surgery Aug-L foot medial calcaneal slide osteotomy w/Alvarez Calcaneal osteotomy, correction of L hallux valgus w/arthrodesis of first tartsometatarsal jt, L bunion correction, L gastroc recession Treatment Goals Patient/Caregiver Goals Be able to go up/down ladder cart while carrying heavy objects to stock things, start gardening, be able to get up/ down from the ground indep, be able to go for walks, get a good workout routine for good fitness habits Personal Factors Other Personal Factors That May Effect depression, anxiety, Therapy/Recovery schitzophrenia, hx drug abus PT-OP-C Subjective Start: 12/26/21 17:49 Freq: Status: Active Protocol: Document 01/16/22 15:18 [facility] (Rec: 01/16/22 16:02 [facility] [id number]) OP-PT Subjective Patient Comments Patient Comments Pt feels her foot is doing a little better but her big toe where the bunion was is hurting PT-OP-F Manual Assessment Start: 12/26/21 17:49 Freq: Status: Active Protocol: Document 12/30/21 15:18 [facility] (Rec: 12/30/21 16:31 [facility] [id number]) Manual Assessments Soft Tissue Assessment Soft Tissue Mobility Assessment Pt still has some scabbing towards ant aspect of lat scar and med scar Other Manual Assessments Other Manual Assessments 21.1 cm L MT base R 20.9 25.3 cm L malleoli R 24.1 PT-OP-G Mobility & Gait Start: 12/26/21 17:49 Freq: Status: Active Protocol: Document 12/30/21 15:18 [facility] (Rec: 12/30/21 16:31 [facility] [id number]) OP Gait Assessment Comments Gait Comments Dec stance time on LLE and no push off LLE, slow gait PT-OP-K Range of Motion Start: 12/26/21 17:49 Freq: Status: Active Protocol: Document 12/30/21 15:18 [facility] (Rec: 12/30/21 16:31 [facility] [id number]) Ankle and Foot Goniometric Range of Motion Ankle and Foot Right Active Dorsiflexion with Knee Flexed 5 Dorsiflexion with Knee Extended 9 Plantarflexion 50 Inversion 28 Eversion 12 Comments lacking DF to neutral in knee ext positon Left Active Dorsiflexion with Knee Flexed 2 Dorsiflexion with Knee Extended 9 Plantarflexion 50 Inversion 8 Eversion 12 Comments lacking DF to neutral in knee ext positon Toe Range of Motion Toe Right Great Toe MTP Extension Active (degrees) 30 MTP Extension Passive (degrees) 55 Left Great Toe MTP Extension Active (degrees) 10 MTP Extension Passive (degrees) 15 Comments 20 deg valgus PT-OP-L Special Tests Start: 12/26/21 17:49 Freq: Status: Active Protocol: Document 12/30/21 15:18 [facility] (Rec: 12/30/21 16:31 [facility] [id number]) Special Tests Other Special Tests Special Tests 45 deg R HS tightness SLR, 64 Deg L PT-OP-M Strength Start: 12/26/21 17:49 Freq: Status: Active Protocol: Document 12/30/21 15:18 [facility] (Rec: 12/30/21 16:31 [facility] [id number]) Hip Strength Hip Manual Muscle Testing Right Flexion (L2) 4+ Good+ Extension (S1) 4 Good Abduction 4 Good External Rotation 4- Good- Internal Rotation 4 Good Left Flexion (L2) 4- Good- Extension (S1) 3+ Fair+ Abduction 4 Good External Rotation 4- Good- Internal Rotation 3 Fair Knee Strength Knee Manual Muscle Testing Right Flexion (S2) 5 Normal Extension (L3) 5 Normal Left Flexion (S2) 5 Normal Extension (L3) 5 Normal Ankle/Foot Strength Ankle and Foot Manual Muscle Testing Right Dorsiflexion (L4) 5 Normal Plantarflexion (S1) 5 Normal Inversion 5 Normal Eversion (S1) 5 Normal Comments 20 heel raises Left Dorsiflexion (L4) 4 Good Plantarflexion (S1) 3- Fair- Inversion 3+ Fair+ Eversion (S1) 3+ Fair+ Comments pain eversion; unable to do heel raises Toe Strength Toe Manual Muscle Testing Right Great Toe Flexion 5 Normal Extension 5 Normal Left Great Toe Flexion 3+ Fair+ Extension 4- Good- PT-OP-Q Treatments Start: 12/26/21 17:49 Freq: Status: Active Protocol: Document 01/16/22 15:18 [facility] (Rec: 01/16/22 16:02 [facility] [id number]) Therapeutic Exercises Sitting Exercises BAPs Sitting Exercise Name 1. inver/eversion 2. PF/DF 3. circles Side left Reps/Minutes 1 &2.15 ea 3. 8 ea tband Sitting Exercise Name resisted PF Side left Equipment Used L1 Reps/Minutes 15 stretch Sitting Exercise Name calf, plantar fascia Side left Reps/Minutes 30 sec ROM Sitting Exercise Name 1. ABCs & circles 2. big toe/ other toes DF lift Manual Therapy Treatment Soft Tissue Mobilization calf Body Location L Mobilization Type Myofascial Release Intensity/Depth Moderate scar Body Location lat & post scar & med proximal scar Mobilization Type Myofascial Release,Rolling Intensity/Depth Superficial Body Position Supine plantar fascia Body Location L Mobilization Type Rolling Intensity/Depth Moderate Body Position Supine Manual Techniques PROM Type L ankle PF, DF, inversion, eversion gentle Neuro Re-Education Treatment Balance Activities bosu Comments standing balance -blue side 1. marching 2. wt shift fwd/back 3. mini squats PT-OP-T Assessment and Plan Start: 12/26/21 17:49 Freq: Status: Active Protocol: Document 01/16/22 15:18 [facility] (Rec: 01/16/22 16:02 [facility] [id number]) Physical Therapy Assessment Goals balance Senior Living Goal (LTG) pt will be able to do SLS 20 sec B w/o LOB to show improved stability. LTG Duration 04/01/22 strength Short Term Goal (STG) Pt will be indep w/HEP STG Duration 01/30/22 Shank Stitcher Goal (LTG) Pt will score at least 5/5 on BLE MMT to show improved strength to allow pt to do typical activities w/o inc pain. LTG Duration 04/01/22 ROM Short Term Goal (STG) Pt will improve to DF to neutral on L in knee ext position. STG Duration 02/27/22 Shank Stitcher Goal (LTG) Pt will have within 5 deg ROM of L ankle to R ankle to improve pt ability to negotiate the community. LTG Duration 04/01/22 work Short Term Goal (STG) Pt will be able to return to light duty work w/pain no greater than 4/10 STG Duration 02/27/22 Shank Stitcher Goal (LTG) Pt will be able to return to full duty work w/o L foot/ ankle pain greater than 2/10 LTG Duration 04/01/22 gardening Short Term Goal (STG) Pt will be able to get up/down from the ground indep to allow for gardening. STG Duration 02/27/22 Senior Living Goal (LTG) Pt will be able to do all tasks for gardening w/o inc pain. LTG Duration 03/29/22 LEFS Impairment 23/80 Short Term Goal (STG) Pt will improved LEFS to at least 45/80 to show improved function. STG Duration 02/27/22 Shank Stitcher Goal (LTG) Pt will improved LEFS to at least 70/80 to show improved function. LTG Duration 04/01/22 Assessment Summary Assessment Pt has improved L DF/PF after manual work. She continues to have most difficulty with inversion and eversion. Pt demonstrates good balance on the bosu with minor c/o pain near big toe which is described as a knot moving back and forth. Explained pain is likely due to scar tissue from bunion surgery and encouraged pt to ice after therapy. Physical Therapy Plan Frequency and Duration Frequency of Treatment 1-2x/week Duration of Treatment 3 months Plan of Care Start Date 12/30/21 Plan of Care End Date 04/01/22 Therapeutic Interventions Therapeutic Interventions Aquatic Therapy,Balance Training,Gait Training,Home Exercise Program,Joint Mobilizations,Manual Therapy, Neuromuscular Re-education, Patient/Caregiver Education, Self-Care/Home Management,Soft Tissue Mobilization,Taping, Therapeutic Activities, Therapeutic Exercises Modalities Cold Pack/Ice Massage,Electric Stimulation,Hot Packs, Infrared Therapy,Ultrasound Next Visit Focus/Plan Next Note Type Treatment Note Next Visit Plan cont to work balance & ROM and ankle stability and manual for foot mobility
--- NOTE | 2022-01-21 14:31 | PT.OTN ---
Current Diagnoses Hallux valgus (acquired), left foot (01/21/22) Flat foot [pes planus] (acquired), unspecified foot (01/21/22) Other acquired deformities of left foot (01/21/22) Difficulty in walking, not elsewhere classified (01/21/22) Other abnormalities of gait and mobility (01/21/22) Weakness (01/21/22) Physical Therapy Treatment Note PT-OP-A Visit Information Start: 12/26/21 17:49 Freq: Status: Active Protocol: Document 01/21/22 13:50 [facility] (Rec: 01/21/22 14:31 [facility] [id number]) Out-Patient Physical Therapy Visit Information Visit Information Visit Type Treatment Note Visit Note 24 visits in a year Visit Start Time 13:50 Visit Stop Time 14:30 Total Visit Minutes 40 Visit Number 7 Number of DINING CAR WAITER/WAITRESS Visits 0 PT-OP-B Current Condition Start: 12/26/21 17:49 Freq: Status: Active Protocol: Document 12/30/21 15:18 [facility] (Rec: 12/30/21 16:31 [facility] [id number]) Current Condition History of Current Condition Onset Date Sep 13 sx Current Complaints s/p L foot surgery History of Current Condition Pt reports foot pain all the time since injury jumping on tramp in where she sprained ankle. She was getting really painful to walk so she couldn 't do her duties for work. 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 She sees Dr. Dao tomorrow. Pt has been wearing her post op shoe mostly but is allowed to wear her sneakers but they feel too tight. Pt likes to color, going to [employer] study, gardening, going for walks ( was limited prior to surgery d /t pain). No other history of joint pain. Has not tried much walking. Prior Treatments and Tests surgery Aug-L foot medial calcaneal slide osteotomy w/Alvarez Calcaneal osteotomy, correction of L hallux valgus w/arthrodesis of first tartsometatarsal jt, L bunion correction, L gastroc recession Treatment Goals Patient/Caregiver Goals Be able to go up/down ladder cart while carrying heavy objects to stock things, start gardening, be able to get up/ down from the ground indep, be able to go for walks, get a good workout routine for good fitness habits Personal Factors Other Personal Factors That May Effect depression, anxiety, Therapy/Recovery schitzophrenia, hx drug abus PT-OP-C Subjective Start: 12/26/21 17:49 Freq: Status: Active Protocol: Document 01/21/22 13:50 [facility] (Rec: 01/21/22 14:31 [facility] [id number]) OP-PT Subjective Patient Comments Patient Comments Pt reports exercises going well. no questions. Notes some pain when waking this am that was better once moving around . PT-OP-F Manual Assessment Start: 12/26/21 17:49 Freq: Status: Active Protocol: Document 12/30/21 15:18 [facility] (Rec: 12/30/21 16:31 [facility] [id number]) Manual Assessments Soft Tissue Assessment Soft Tissue Mobility Assessment Pt still has some scabbing towards ant aspect of lat scar and med scar Other Manual Assessments Other Manual Assessments 21.1 cm L MT base R 20.9 25.3 cm L malleoli R 24.1 PT-OP-G Mobility & Gait Start: 12/26/21 17:49 Freq: Status: Active Protocol: Document 12/30/21 15:18 [facility] (Rec: 12/30/21 16:31 [facility] [id number]) OP Gait Assessment Comments Gait Comments Dec stance time on LLE and no push off LLE, slow gait PT-OP-K Range of Motion Start: 12/26/21 17:49 Freq: Status: Active Protocol: Document 12/30/21 15:18 [facility] (Rec: 12/30/21 16:31 [facility] [id number]) Ankle and Foot Goniometric Range of Motion Ankle and Foot Right Active Dorsiflexion with Knee Flexed 5 Dorsiflexion with Knee Extended 9 Plantarflexion 50 Inversion 28 Eversion 12 Comments lacking DF to neutral in knee ext positon Left Active Dorsiflexion with Knee Flexed 2 Dorsiflexion with Knee Extended 9 Plantarflexion 50 Inversion 8 Eversion 12 Comments lacking DF to neutral in knee ext positon Toe Range of Motion Toe Right Great Toe MTP Extension Active (degrees) 30 MTP Extension Passive (degrees) 55 Left Great Toe MTP Extension Active (degrees) 10 MTP Extension Passive (degrees) 15 Comments 20 deg valgus PT-OP-L Special Tests Start: 12/26/21 17:49 Freq: Status: Active Protocol: Document 12/30/21 15:18 [facility] (Rec: 12/30/21 16:31 [facility] [id number]) Special Tests Other Special Tests Special Tests 45 deg R HS tightness SLR, 64 Deg L PT-OP-M Strength Start: 12/26/21 17:49 Freq: Status: Active Protocol: Document 12/30/21 15:18 [facility] (Rec: 12/30/21 16:31 [facility] [id number]) Hip Strength Hip Manual Muscle Testing Right Flexion (L2) 4+ Good+ Extension (S1) 4 Good Abduction 4 Good External Rotation 4- Good- Internal Rotation 4 Good Left Flexion (L2) 4- Good- Extension (S1) 3+ Fair+ Abduction 4 Good External Rotation 4- Good- Internal Rotation 3 Fair Knee Strength Knee Manual Muscle Testing Right Flexion (S2) 5 Normal Extension (L3) 5 Normal Left Flexion (S2) 5 Normal Extension (L3) 5 Normal Ankle/Foot Strength Ankle and Foot Manual Muscle Testing Right Dorsiflexion (L4) 5 Normal Plantarflexion (S1) 5 Normal Inversion 5 Normal Eversion (S1) 5 Normal Comments 20 heel raises Left Dorsiflexion (L4) 4 Good Plantarflexion (S1) 3- Fair- Inversion 3+ Fair+ Eversion (S1) 3+ Fair+ Comments pain eversion; unable to do heel raises Toe Strength Toe Manual Muscle Testing Right Great Toe Flexion 5 Normal Extension 5 Normal Left Great Toe Flexion 3+ Fair+ Extension 4- Good- PT-OP-Q Treatments Start: 12/26/21 17:49 Freq: Status: Active Protocol: Document 01/21/22 13:50 [facility] (Rec: 01/21/22 14:31 [facility] [id number]) Therapeutic Exercises Sitting Exercises BAPs Sitting Exercise Name 1. inver/eversion 2. PF/DF 3. circles Side left Reps/Minutes 10 ea tband Sitting Exercise Name resisted PF &DF Side left Equipment Used L3 Reps/Minutes 15 ea Standing Exercises lunges Standing Exercise Name mini Side bilateral Equipment Used bar Reps/Minutes 10 ea Manual Therapy Treatment Soft Tissue Mobilization calf Body Location L Mobilization Type Myofascial Release Intensity/Depth Moderate scar Body Location lat & post scar & med proximal scar Mobilization Type Myofascial Release,Rolling Intensity/Depth Superficial Body Position Supine plantar fascia Body Location L Mobilization Type Rolling Intensity/Depth Moderate Body Position Supine Manual Techniques PROM Type L ankle PF, DF, inversion, eversion gentle Neuro Re-Education Treatment Balance Activities SL Details SLS trials L bosu Comments 1.step ups x10 B 2. standing balance 3. wt shift fw/dback PT-OP-T Assessment and Plan Start: 12/26/21 17:49 Freq: Status: Active Protocol: Document 01/21/22 13:50 [facility] (Rec: 01/21/22 14:31 [facility] [id number]) Physical Therapy Assessment Goals balance Cut Order Hand Goal (LTG) pt will be able to do SLS 20 sec B w/o LOB to show improved stability. LTG Duration 04/01/22 strength Short Term Goal (STG) Pt will be indep w/HEP STG Duration 01/30/22 Fpc Goal (LTG) Pt will score at least 5/5 on BLE MMT to show improved strength to allow pt to do typical activities w/o inc pain. LTG Duration 04/01/22 ROM Short Term Goal (STG) Pt will improve to DF to neutral on L in knee ext position. STG Duration 02/27/22 Cut Order Hand Goal (LTG) Pt will have within 5 deg ROM of L ankle to R ankle to improve pt ability to negotiate the community. LTG Duration 04/01/22 work Short Term Goal (STG) Pt will be able to return to light duty work w/pain no greater than 4/10 STG Duration 02/27/22 Fpc Goal (LTG) Pt will be able to return to full duty work w/o L foot/ ankle pain greater than 2/10 LTG Duration 04/01/22 gardening Short Term Goal (STG) Pt will be able to get up/down from the ground indep to allow for gardening. STG Duration 02/27/22 Cut Order Hand Goal (LTG) Pt will be able to do all tasks for gardening w/o inc pain. LTG Duration 03/29/22 LEFS Impairment 23/80 Short Term Goal (STG) Pt will improved LEFS to at least 45/80 to show improved function. STG Duration 02/27/22 Cut Order Hand Goal (LTG) Pt will improved LEFS to at least 70/80 to show improved function. LTG Duration 04/01/22 Assessment Summary Assessment Pt tolerated inc w/ resistance today and inc difficulty of exercises like lunges and step ups. Noted some pain w/step ups on bosu but it does fade after time. Physical Therapy Plan Frequency and Duration Frequency of Treatment 1-2x/week Duration of Treatment 3 months Plan of Care Start Date 12/30/21 Plan of Care End Date 04/01/22 Next Visit Focus/Plan Next Note Type Treatment Note Next Visit Plan cont to work balance & ROM and ankle stability and manual for foot mobility
--- NOTE | 2022-01-23 14:38 | PT.OTN ---
Current Diagnoses Hallux valgus (acquired), left foot (01/23/22) Flat foot [pes planus] (acquired), unspecified foot (01/23/22) Other acquired deformities of left foot (01/23/22) Difficulty in walking, not elsewhere classified (01/23/22) Other abnormalities of gait and mobility (01/23/22) Weakness (01/23/22) Physical Therapy Treatment Note PT-OP-A Visit Information Start: 12/26/21 17:49 Freq: Status: Active Protocol: Document 01/23/22 13:54 [facility] (Rec: 01/23/22 14:38 [facility] [id number]) Out-Patient Physical Therapy Visit Information Visit Information Visit Type Treatment Note Visit Note 24 visits in a year Visit Start Time 13:51 Visit Stop Time 14:31 Total Visit Minutes 40 Visit Number 8 Number of SUPERVISOR CD AREA Visits 0 PT-OP-B Current Condition Start: 12/26/21 17:49 Freq: Status: Active Protocol: Document 12/30/21 15:18 [facility] (Rec: 12/30/21 16:31 [facility] [id number]) Current Condition History of Current Condition Onset Date Sep 13 sx Current Complaints s/p L foot surgery History of Current Condition Pt reports foot pain all the time since injury jumping on tramp in where she sprained ankle. She was getting really painful to walk so she couldn 't do her duties for work. 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 She sees Dr. Dao tomorrow. Pt has been wearing her post op shoe mostly but is allowed to wear her sneakers but they feel too tight. Pt likes to color, going to [employer] study, gardening, going for walks ( was limited prior to surgery d /t pain). No other history of joint pain. Has not tried much walking. Prior Treatments and Tests surgery Aug-L foot medial calcaneal slide osteotomy w/Alvarez Calcaneal osteotomy, correction of L hallux valgus w/arthrodesis of first tartsometatarsal jt, L bunion correction, L gastroc recession Treatment Goals Patient/Caregiver Goals Be able to go up/down ladder cart while carrying heavy objects to stock things, start gardening, be able to get up/ down from the ground indep, be able to go for walks, get a good workout routine for good fitness habits Personal Factors Other Personal Factors That May Effect depression, anxiety, Therapy/Recovery schitzophrenia, hx drug abus PT-OP-C Subjective Start: 12/26/21 17:49 Freq: Status: Active Protocol: Document 01/23/22 13:54 [facility] (Rec: 01/23/22 14:38 [facility] [id number]) OP-PT Subjective Patient Comments Patient Comments notes walking 20 min yesterday and today and has some glute, calf and foot soreness. PT-OP-F Manual Assessment Start: 12/26/21 17:49 Freq: Status: Active Protocol: Document 12/30/21 15:18 [facility] (Rec: 12/30/21 16:31 [facility] [id number]) Manual Assessments Soft Tissue Assessment Soft Tissue Mobility Assessment Pt still has some scabbing towards ant aspect of lat scar and med scar Other Manual Assessments Other Manual Assessments 21.1 cm L MT base R 20.9 25.3 cm L malleoli R 24.1 PT-OP-G Mobility & Gait Start: 12/26/21 17:49 Freq: Status: Active Protocol: Document 12/30/21 15:18 [facility] (Rec: 12/30/21 16:31 [facility] [id number]) OP Gait Assessment Comments Gait Comments Dec stance time on LLE and no push off LLE, slow gait PT-OP-K Range of Motion Start: 12/26/21 17:49 Freq: Status: Active Protocol: Document 12/30/21 15:18 [facility] (Rec: 12/30/21 16:31 [facility] [id number]) Ankle and Foot Goniometric Range of Motion Ankle and Foot Right Active Dorsiflexion with Knee Flexed 5 Dorsiflexion with Knee Extended 9 Plantarflexion 50 Inversion 28 Eversion 12 Comments lacking DF to neutral in knee ext positon Left Active Dorsiflexion with Knee Flexed 2 Dorsiflexion with Knee Extended 9 Plantarflexion 50 Inversion 8 Eversion 12 Comments lacking DF to neutral in knee ext positon Toe Range of Motion Toe Right Great Toe MTP Extension Active (degrees) 30 MTP Extension Passive (degrees) 55 Left Great Toe MTP Extension Active (degrees) 10 MTP Extension Passive (degrees) 15 Comments 20 deg valgus PT-OP-L Special Tests Start: 12/26/21 17:49 Freq: Status: Active Protocol: Document 12/30/21 15:18 [facility] (Rec: 12/30/21 16:31 [facility] [id number]) Special Tests Other Special Tests Special Tests 45 deg R HS tightness SLR, 64 Deg L PT-OP-M Strength Start: 12/26/21 17:49 Freq: Status: Active Protocol: Document 12/30/21 15:18 [facility] (Rec: 12/30/21 16:31 [facility] [id number]) Hip Strength Hip Manual Muscle Testing Right Flexion (L2) 4+ Good+ Extension (S1) 4 Good Abduction 4 Good External Rotation 4- Good- Internal Rotation 4 Good Left Flexion (L2) 4- Good- Extension (S1) 3+ Fair+ Abduction 4 Good External Rotation 4- Good- Internal Rotation 3 Fair Knee Strength Knee Manual Muscle Testing Right Flexion (S2) 5 Normal Extension (L3) 5 Normal Left Flexion (S2) 5 Normal Extension (L3) 5 Normal Ankle/Foot Strength Ankle and Foot Manual Muscle Testing Right Dorsiflexion (L4) 5 Normal Plantarflexion (S1) 5 Normal Inversion 5 Normal Eversion (S1) 5 Normal Comments 20 heel raises Left Dorsiflexion (L4) 4 Good Plantarflexion (S1) 3- Fair- Inversion 3+ Fair+ Eversion (S1) 3+ Fair+ Comments pain eversion; unable to do heel raises Toe Strength Toe Manual Muscle Testing Right Great Toe Flexion 5 Normal Extension 5 Normal Left Great Toe Flexion 3+ Fair+ Extension 4- Good- PT-OP-Q Treatments Start: 12/26/21 17:49 Freq: Status: Active Protocol: Document 01/23/22 13:54 [facility] (Rec: 01/23/22 14:38 [facility] [id number]) Therapeutic Exercises Sitting Exercises foot yoga Sitting Exercise Name 1. big toe DF 2.digit 2-5 DF 3 . ext, abd flex relax Side left Reps/Minutes 8 ea scrunch Sitting Exercise Name towel Side bilateral Reps/Minutes 4 min Comments attemped BAPs Sitting Exercise Name 1. inver/eversion 2. PF/DF 3. circles Side left Reps/Minutes 10 ea Standing Exercises lunges Standing Exercise Name mini Side bilateral Equipment Used mat hand hold Reps/Minutes 10 ea stretch Side bilateral Reps/Minutes 30 sec Comments fwd lean Manual Therapy Treatment Soft Tissue Mobilization calf Body Location L Mobilization Type Myofascial Release Intensity/Depth Moderate scar Body Location lat & post scar & med proximal scar Mobilization Type Myofascial Release,Rolling Intensity/Depth Superficial Body Position Supine Joint Mobilizations MT Joint 1-5 Direction AP/PA Grade II Manual Techniques PROM Type L ankle PF, DF, inversion, eversion gentle PT-OP-T Assessment and Plan Start: 12/26/21 17:49 Freq: Status: Active Protocol: Document 01/23/22 13:54 [facility] (Rec: 01/23/22 14:38 [facility] [id number]) Physical Therapy Assessment Goals balance Senior Care Goal (LTG) pt will be able to do SLS 20 sec B w/o LOB to show improved stability. LTG Duration 04/01/22 strength Short Term Goal (STG) Pt will be indep w/HEP STG Duration 01/30/22 Senior Care Goal (LTG) Pt will score at least 5/5 on BLE MMT to show improved strength to allow pt to do typical activities w/o inc pain. LTG Duration 04/01/22 ROM Short Term Goal (STG) Pt will improve to DF to neutral on L in knee ext position. STG Duration 02/27/22 Senior Care Goal (LTG) Pt will have within 5 deg ROM of L ankle to R ankle to improve pt ability to negotiate the community. LTG Duration 04/01/22 work Short Term Goal (STG) Pt will be able to return to light duty work w/pain no greater than 4/10 STG Duration 02/27/22 Senior Care Goal (LTG) Pt will be able to return to full duty work w/o L foot/ ankle pain greater than 2/10 LTG Duration 04/01/22 gardening Short Term Goal (STG) Pt will be able to get up/down from the ground indep to allow for gardening. STG Duration 02/27/22 Senior Care Goal (LTG) Pt will be able to do all tasks for gardening w/o inc pain. LTG Duration 03/29/22 LEFS Impairment 23/80 Short Term Goal (STG) Pt will improved LEFS to at least 45/80 to show improved function. STG Duration 02/27/22 Senior Care Goal (LTG) Pt will improved LEFS to at least 70/80 to show improved function. LTG Duration 04/01/22 Assessment Summary Assessment Pt did well with strengthening . She struggled w/intrinsic foot mm exercsies and will require more work. Gradual inc in ROM Physical Therapy Plan Frequency and Duration Frequency of Treatment 1-2x/week Duration of Treatment 3 months Plan of Care Start Date 12/30/21 Plan of Care End Date 04/01/22 Next Visit Focus/Plan Next Note Type Treatment Note Next Visit Plan review exercises,cont to work balance & ROM and ankle stability and manual for foot mobility
--- NOTE | 2022-02-03 17:47 | PT.OTN ---
Current Diagnoses Hallux valgus (acquired), left foot (02/03/22) Flat foot [pes planus] (acquired), unspecified foot (02/03/22) Other acquired deformities of left foot (02/03/22) Difficulty in walking, not elsewhere classified (02/03/22) Other abnormalities of gait and mobility (02/03/22) Weakness (02/03/22) Physical Therapy Treatment Note PT-OP-A Visit Information Start: 12/26/21 17:49 Freq: Status: Active Protocol: Document 02/03/22 14:32 MA (Rec: 02/03/22 15:17 MA [id number]) Out-Patient Physical Therapy Visit Information Visit Information Visit Type Treatment Note Visit Note 24 visits in a year Visit Start Time 14:32 Visit Stop Time 15:10 Total Visit Minutes 38 Visit Number 9 Number of FUR SEWER Visits 11 PT-OP-B Current Condition Start: 12/26/21 17:49 Freq: Status: Active Protocol: Document 12/30/21 15:18 [facility] (Rec: 12/30/21 16:31 [facility] [id number]) Current Condition History of Current Condition Onset Date Sep 13 sx Current Complaints s/p L foot surgery History of Current Condition Pt reports foot pain all the time since injury jumping on tramp in where she sprained ankle. She was getting really painful to walk so she couldn 't do her duties for work. 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 She sees Dr. Dao tomorrow. Pt has been wearing her post op shoe mostly but is allowed to wear her sneakers but they feel too tight. Pt likes to color, going to [email or web address] study, gardening, going for walks ( was limited prior to surgery d /t pain). No other history of joint pain. Has not tried much walking. Prior Treatments and Tests surgery Aug-L foot medial calcaneal slide osteotomy w/Alvarez Calcaneal osteotomy, correction of L hallux valgus w/arthrodesis of first tartsometatarsal jt, L bunion correction, L gastroc recession Treatment Goals Patient/Caregiver Goals Be able to go up/down ladder cart while carrying heavy objects to stock things, start gardening, be able to get up/ down from the ground indep, be able to go for walks, get a good workout routine for good fitness habits Personal Factors Other Personal Factors That May Effect depression, anxiety, Therapy/Recovery schitzophrenia, hx drug abus PT-OP-C Subjective Start: 12/26/21 17:49 Freq: Status: Active Protocol: Document 02/03/22 14:32 MA (Rec: 02/03/22 15:17 MA [id number]) OP-PT Subjective Patient Comments Patient Comments Pt is sore because she has been back at work for two weeks now. Her foot pain has overall improved but just gets sore. PT-OP-F Manual Assessment Start: 12/26/21 17:49 Freq: Status: Active Protocol: Document 12/30/21 15:18 [facility] (Rec: 12/30/21 16:31 [facility] [id number]) Manual Assessments Soft Tissue Assessment Soft Tissue Mobility Assessment Pt still has some scabbing towards ant aspect of lat scar and med scar Other Manual Assessments Other Manual Assessments 21.1 cm L MT base R 20.9 25.3 cm L malleoli R 24.1 PT-OP-G Mobility & Gait Start: 12/26/21 17:49 Freq: Status: Active Protocol: Document 12/30/21 15:18 [facility] (Rec: 12/30/21 16:31 [facility] [id number]) OP Gait Assessment Comments Gait Comments Dec stance time on LLE and no push off LLE, slow gait PT-OP-K Range of Motion Start: 12/26/21 17:49 Freq: Status: Active Protocol: Document 12/30/21 15:18 [facility] (Rec: 12/30/21 16:31 [facility] [id number]) Ankle and Foot Goniometric Range of Motion Ankle and Foot Right Active Dorsiflexion with Knee Flexed 5 Dorsiflexion with Knee Extended 9 Plantarflexion 50 Inversion 28 Eversion 12 Comments lacking DF to neutral in knee ext positon Left Active Dorsiflexion with Knee Flexed 2 Dorsiflexion with Knee Extended 9 Plantarflexion 50 Inversion 8 Eversion 12 Comments lacking DF to neutral in knee ext positon Toe Range of Motion Toe Right Great Toe MTP Extension Active (degrees) 30 MTP Extension Passive (degrees) 55 Left Great Toe MTP Extension Active (degrees) 10 MTP Extension Passive (degrees) 15 Comments 20 deg valgus PT-OP-L Special Tests Start: 12/26/21 17:49 Freq: Status: Active Protocol: Document 12/30/21 15:18 [facility] (Rec: 12/30/21 16:31 [facility] [id number]) Special Tests Other Special Tests Special Tests 45 deg R HS tightness SLR, 64 Deg L PT-OP-M Strength Start: 12/26/21 17:49 Freq: Status: Active Protocol: Document 12/30/21 15:18 [facility] (Rec: 12/30/21 16:31 [facility] [id number]) Hip Strength Hip Manual Muscle Testing Right Flexion (L2) 4+ Good+ Extension (S1) 4 Good Abduction 4 Good External Rotation 4- Good- Internal Rotation 4 Good Left Flexion (L2) 4- Good- Extension (S1) 3+ Fair+ Abduction 4 Good External Rotation 4- Good- Internal Rotation 3 Fair Knee Strength Knee Manual Muscle Testing Right Flexion (S2) 5 Normal Extension (L3) 5 Normal Left Flexion (S2) 5 Normal Extension (L3) 5 Normal Ankle/Foot Strength Ankle and Foot Manual Muscle Testing Right Dorsiflexion (L4) 5 Normal Plantarflexion (S1) 5 Normal Inversion 5 Normal Eversion (S1) 5 Normal Comments 20 heel raises Left Dorsiflexion (L4) 4 Good Plantarflexion (S1) 3- Fair- Inversion 3+ Fair+ Eversion (S1) 3+ Fair+ Comments pain eversion; unable to do heel raises Toe Strength Toe Manual Muscle Testing Right Great Toe Flexion 5 Normal Extension 5 Normal Left Great Toe Flexion 3+ Fair+ Extension 4- Good- PT-OP-Q Treatments Start: 12/26/21 17:49 Freq: Status: Active Protocol: Document 02/03/22 14:32 MA (Rec: 02/03/22 15:17 MA [id number]) Therapeutic Exercises Sitting Exercises foot yoga Sitting Exercise Name 1. big toe DF 2.digit 2-5 DF 3 . ext, abd flex relax Side left Reps/Minutes 8 ea scrunch Sitting Exercise Name towel Side bilateral Reps/Minutes 4 min Comments attemped tband Sitting Exercise Name resisted PF &DF Side left Equipment Used L3 Reps/Minutes 15 ea ROM Sitting Exercise Name 1. ABCs & circles 2. alt DF/PF 3. IVEV waving foot side-to- side Manual Therapy Treatment Soft Tissue Mobilization calf Body Location L Mobilization Type Myofascial Release Intensity/Depth Moderate scar Body Location lat & post scar & med proximal scar Mobilization Type Myofascial Release,Rolling Intensity/Depth Superficial Body Position Supine plantar fascia Body Location L Mobilization Type Rolling Intensity/Depth Moderate Body Position Supine Manual Techniques PROM Type L ankle PF, DF, inversion, eversion gentle PT-OP-R Modalities Start: 12/26/21 17:49 Freq: Status: Active Protocol: Document 02/03/22 14:32 MA (Rec: 02/03/22 15:17 MA [id number]) Hot Pack/Cold Pack Treatment Ice Massage Location L medial ankle Patient Position Supine Treatment Duration (minutes) 5 Patient Tolerance Good PT-OP-T Assessment and Plan Start: 12/26/21 17:49 Freq: Status: Active Protocol: Document 02/03/22 14:32 MA (Rec: 02/03/22 15:17 MA [id number]) Physical Therapy Assessment Goals balance Fdc Goal (LTG) pt will be able to do SLS 20 sec B w/o LOB to show improved stability. LTG Duration 04/01/22 strength Short Term Goal (STG) Pt will be indep w/HEP STG Duration 01/30/22 Fdc Goal (LTG) Pt will score at least 5/5 on BLE MMT to show improved strength to allow pt to do typical activities w/o inc pain. LTG Duration 04/01/22 ROM Short Term Goal (STG) Pt will improve to DF to neutral on L in knee ext position. STG Duration 02/27/22 [employer] Goal (LTG) Pt will have within 5 deg ROM of L ankle to R ankle to improve pt ability to negotiate the community. LTG Duration 04/01/22 work Short Term Goal (STG) Pt will be able to return to light duty work w/pain no greater than 4/10 STG Duration 02/27/22 Fdc Goal (LTG) Pt will be able to return to full duty work w/o L foot/ ankle pain greater than 2/10 LTG Duration 04/01/22 gardening Short Term Goal (STG) Pt will be able to get up/down from the ground indep to allow for gardening. STG Duration 02/27/22 Fdc Goal (LTG) Pt will be able to do all tasks for gardening w/o inc pain. LTG Duration 03/29/22 LEFS Impairment 23/80 Short Term Goal (STG) Pt will improved LEFS to at least 45/80 to show improved function. STG Duration 02/27/22 Fdc Goal (LTG) Pt will improved LEFS to at least 70/80 to show improved function. LTG Duration 04/01/22 Assessment Summary Assessment Pt has decreased L ankle ROM today likely due to her increased swelling in medial L ankle. 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 Educated pt on icing during lunch break at work and again after work to decrease swelling. Performed ice massage to medial ankle today to help decrease swelling. Pt has no pain during ther ex except with resisted DF. Physical Therapy Plan Frequency and Duration Frequency of Treatment 1-2x/week Duration of Treatment 3 months Plan of Care Start Date 12/30/21 Plan of Care End Date 04/01/22 Therapeutic Interventions Therapeutic Interventions Aquatic Therapy,Balance Training,Gait Training,Home Exercise Program,Joint Mobilizations,Manual Therapy, Neuromuscular Re-education, Patient/Caregiver Education, Self-Care/Home Management,Soft Tissue Mobilization,Taping, Therapeutic Activities, Therapeutic Exercises Modalities Cold Pack/Ice Massage,Electric Stimulation,Hot Packs, Infrared Therapy,Ultrasound Next Visit Focus/Plan Next Note Type Treatment Note Next Visit Plan Assess swelling and see if pt iced during and after work. Review exercises,cont to work balance & ROM and ankle stability and manual for foot mobility
--- NOTE | 2022-02-06 18:49 | PT.OTN ---
Current Diagnoses Hallux valgus (acquired), left foot (02/06/22) Flat foot [pes planus] (acquired), unspecified foot (02/06/22) Other acquired deformities of left foot (02/06/22) Difficulty in walking, not elsewhere classified (02/06/22) Other abnormalities of gait and mobility (02/06/22) Weakness (02/06/22) Physical Therapy Treatment Note PT-OP-A Visit Information Start: 12/26/21 17:49 Freq: Status: Active Protocol: Document 02/06/22 13:38 NB (Rec: 02/06/22 18:47 [facility] [id number]) Out-Patient Physical Therapy Visit Information Visit Information Visit Type Treatment Note Visit Note 24 visits in a year Visit Start Time 13:49 Visit Stop Time 14:33 Total Visit Minutes 44 Visit Number 10 Number of CREDENTIALING ANALYST Visits 1 PT-OP-B Current Condition Start: 12/26/21 17:49 Freq: Status: Active Protocol: Document 12/30/21 15:18 [facility] (Rec: 12/30/21 16:31 [facility] [id number]) Current Condition History of Current Condition Onset Date Sep 13 sx Current Complaints s/p L foot surgery History of Current Condition Pt reports foot pain all the time since injury jumping on tramp in where she sprained ankle. She was getting really painful to walk so she couldn 't do her duties for work. 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 She sees Dr. Dao tomorrow. Pt has been wearing her post op shoe mostly but is allowed to wear her sneakers but they feel too tight. Pt likes to color, going to [employer] study, gardening, going for walks ( was limited prior to surgery d /t pain). No other history of joint pain. Has not tried much walking. Prior Treatments and Tests surgery Aug-L foot medial calcaneal slide osteotomy w/Alvarez Calcaneal osteotomy, correction of L hallux valgus w/arthrodesis of first tartsometatarsal jt, L bunion correction, L gastroc recession Treatment Goals Patient/Caregiver Goals Be able to go up/down ladder cart while carrying heavy objects to stock things, start gardening, be able to get up/ down from the ground indep, be able to go for walks, get a good workout routine for good fitness habits Personal Factors Other Personal Factors That May Effect depression, anxiety, Therapy/Recovery schitzophrenia, hx drug abus PT-OP-C Subjective Start: 12/26/21 17:49 Freq: Status: Active Protocol: Document 02/06/22 13:38 NBM (Rec: 02/06/22 18:47 NBM [id number]) OP-PT Subjective Patient Comments Patient Comments Pt arrives straight from work feeling sore today after walking more than usual. Unable to ice during work. Icing at home and before bed which helps. She liked the ice massage. PT-OP-F Manual Assessment Start: 12/26/21 17:49 Freq: Status: Active Protocol: Document 12/30/21 15:18 [facility] (Rec: 12/30/21 16:31 [facility] [id number]) Manual Assessments Soft Tissue Assessment Soft Tissue Mobility Assessment Pt still has some scabbing towards ant aspect of lat scar and med scar Other Manual Assessments Other Manual Assessments 21.1 cm L MT base R 20.9 25.3 cm L malleoli R 24.1 PT-OP-G Mobility & Gait Start: 12/26/21 17:49 Freq: Status: Active Protocol: Document 12/30/21 15:18 [facility] (Rec: 12/30/21 16:31 [facility] [id number]) OP Gait Assessment Comments Gait Comments Dec stance time on LLE and no push off LLE, slow gait PT-OP-K Range of Motion Start: 12/26/21 17:49 Freq: Status: Active Protocol: Document 12/30/21 15:18 [facility] (Rec: 12/30/21 16:31 [facility] [id number]) Ankle and Foot Goniometric Range of Motion Ankle and Foot Right Active Dorsiflexion with Knee Flexed 5 Dorsiflexion with Knee Extended 9 Plantarflexion 50 Inversion 28 Eversion 12 Comments lacking DF to neutral in knee ext positon Left Active Dorsiflexion with Knee Flexed 2 Dorsiflexion with Knee Extended 9 Plantarflexion 50 Inversion 8 Eversion 12 Comments lacking DF to neutral in knee ext positon Toe Range of Motion Toe Right Great Toe MTP Extension Active (degrees) 30 MTP Extension Passive (degrees) 55 Left Great Toe MTP Extension Active (degrees) 10 MTP Extension Passive (degrees) 15 Comments 20 deg valgus PT-OP-L Special Tests Start: 12/26/21 17:49 Freq: Status: Active Protocol: Document 12/30/21 15:18 [facility] (Rec: 12/30/21 16:31 [facility] [id number]) Special Tests Other Special Tests Special Tests 45 deg R HS tightness SLR, 64 Deg L PT-OP-M Strength Start: 12/26/21 17:49 Freq: Status: Active Protocol: Document 12/30/21 15:18 [facility] (Rec: 12/30/21 16:31 [facility] [id number]) Hip Strength Hip Manual Muscle Testing Right Flexion (L2) 4+ Good+ Extension (S1) 4 Good Abduction 4 Good External Rotation 4- Good- Internal Rotation 4 Good Left Flexion (L2) 4- Good- Extension (S1) 3+ Fair+ Abduction 4 Good External Rotation 4- Good- Internal Rotation 3 Fair Knee Strength Knee Manual Muscle Testing Right Flexion (S2) 5 Normal Extension (L3) 5 Normal Left Flexion (S2) 5 Normal Extension (L3) 5 Normal Ankle/Foot Strength Ankle and Foot Manual Muscle Testing Right Dorsiflexion (L4) 5 Normal Plantarflexion (S1) 5 Normal Inversion 5 Normal Eversion (S1) 5 Normal Comments 20 heel raises Left Dorsiflexion (L4) 4 Good Plantarflexion (S1) 3- Fair- Inversion 3+ Fair+ Eversion (S1) 3+ Fair+ Comments pain eversion; unable to do heel raises Toe Strength Toe Manual Muscle Testing Right Great Toe Flexion 5 Normal Extension 5 Normal Left Great Toe Flexion 3+ Fair+ Extension 4- Good- PT-OP-Q Treatments Start: 12/26/21 17:49 Freq: Status: Active Protocol: Document 02/06/22 13:38 [facility] (Rec: 02/06/22 18:47 [facility] [id number]) Therapeutic Exercises Sitting Exercises scrunch Sitting Exercise Name towel Side bilateral Equipment Used slider board Reps/Minutes 4 min Comments attemped. on carpet is too challenging. BAPs Sitting Exercise Name 1. inver/eversion 2. PF/DF 3. circles Side left Reps/Minutes 10 ea tband Sitting Exercise Name resisted PF &DF Side left Equipment Used L3 Reps/Minutes 15 ea stretch Sitting Exercise Name calf, plantar fascia Side bilateral Reps/Minutes 30 sec ROM Sitting Exercise Name 1. ABCs & circles 2. alt DF/PF 3. IVEV waving foot side-to- side Comments Relief reported after. cueing for inversion motion. PT-OP-R Modalities Start: 12/26/21 17:49 Freq: Status: Active Protocol: Document 02/06/22 13:38 NBM (Rec: 02/06/22 18:47 NB [id number]) Hot Pack/Cold Pack Treatment Ice Massage Location L medial ankle Patient Position Supine Treatment Duration (minutes) 5 Patient Tolerance Good PT-OP-T Assessment and Plan Start: 12/26/21 17:49 Freq: Status: Active Protocol: Document 02/06/22 13:38 NBM (Rec: 02/06/22 18:47 [facility] [id number]) Physical Therapy Assessment Goals balance Fpc Goal (LTG) pt will be able to do SLS 20 sec B w/o LOB to show improved stability. LTG Duration 04/01/22 strength Short Term Goal (STG) Pt will be indep w/HEP STG Duration 01/30/22 Service Engine Repairer Goal (LTG) Pt will score at least 5/5 on BLE MMT to show improved strength to allow pt to do typical activities w/o inc pain. LTG Duration 04/01/22 ROM Short Term Goal (STG) Pt will improve to DF to neutral on L in knee ext position. STG Duration 02/27/22 Service Engine Repairer Goal (LTG) Pt will have within 5 deg ROM of L ankle to R ankle to improve pt ability to negotiate the community. LTG Duration 04/01/22 work Short Term Goal (STG) Pt will be able to return to light duty work w/pain no greater than 4/10 STG Duration 02/27/22 Service Engine Repairer Goal (LTG) Pt will be able to return to full duty work w/o L foot/ ankle pain greater than 2/10 LTG Duration 04/01/22 gardening Short Term Goal (STG) Pt will be able to get up/down from the ground indep to allow for gardening. STG Duration 02/27/22 Fpc Goal (LTG) Pt will be able to do all tasks for gardening w/o inc pain. LTG Duration 03/29/22 LEFS Impairment 23/80 Short Term Goal (STG) Pt will improved LEFS to at least 45/80 to show improved function. STG Duration 02/27/22 Service Engine Repairer Goal (LTG) Pt will improved LEFS to at least 70/80 to show improved function. LTG Duration 04/01/22 Assessment Summary Assessment Pt has L medial ankle swelling after arriving straight from work. She has increased L ankle ROM after and reports decreased pain after today's treatment. Physical Therapy Plan Next Visit Focus/Plan Next Note Type Treatment Note Next Visit Plan Assess swelling. Review exercises,cont to work balance & ROM and ankle stability and manual for foot mobility
--- NOTE | 2022-02-19 16:13 | PT.OTN ---
Current Diagnoses Hallux valgus (acquired), left foot (02/19/22) Flat foot [pes planus] (acquired), unspecified foot (02/19/22) Other acquired deformities of left foot (02/19/22) Difficulty in walking, not elsewhere classified (02/19/22) Other abnormalities of gait and mobility (02/19/22) Weakness (02/19/22) Physical Therapy Treatment Note PT-OP-A Visit Information Start: 12/26/21 17:49 Freq: Status: Active Protocol: Document 02/19/22 14:28 MA (Rec: 02/19/22 15:18 NE [id number]) Out-Patient Physical Therapy Visit Information Visit Information Visit Type Treatment Note Visit Note 24 visits in a year Visit Start Time 14:30 Visit Stop Time 15:15 Total Visit Minutes 45 Visit Number 11 Number of ELECTROFORMER Visits 3 PT-OP-B Current Condition Start: 12/26/21 17:49 Freq: Status: Active Protocol: Document 12/30/21 15:18 [facility] (Rec: 12/30/21 16:31 [facility] [id number]) Current Condition History of Current Condition Onset Date Sep 13 sx Current Complaints s/p L foot surgery History of Current Condition Pt reports foot pain all the time since injury jumping on tramp in where she sprained ankle. She was getting really painful to walk so she couldn 't do her duties for work. 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 She sees Dr. Dao tomorrow. Pt has been wearing her post op shoe mostly but is allowed to wear her sneakers but they feel too tight. Pt likes to color, going to [employer] study, gardening, going for walks ( was limited prior to surgery d /t pain). No other history of joint pain. Has not tried much walking. Prior Treatments and Tests surgery Aug-L foot medial calcaneal slide osteotomy w/Alvarez Calcaneal osteotomy, correction of L hallux valgus w/arthrodesis of first tartsometatarsal jt, L bunion correction, L gastroc recession Treatment Goals Patient/Caregiver Goals Be able to go up/down ladder cart while carrying heavy objects to stock things, start gardening, be able to get up/ down from the ground indep, be able to go for walks, get a good workout routine for good fitness habits Personal Factors Other Personal Factors That May Effect depression, anxiety, Therapy/Recovery schitzophrenia, hx drug abus PT-OP-C Subjective Start: 12/26/21 17:49 Freq: Status: Active Protocol: Document 02/19/22 14:28 MA (Rec: 02/19/22 15:18 MA [id number]) OP-PT Subjective Patient Comments Patient Comments Pt has had two days off work but her ankle is still a little swollen today. She has been riding her [employer] bike at home and reports losing 12 pounds in two weeks. She has no pain when using the bike. PT-OP-F Manual Assessment Start: 12/26/21 17:49 Freq: Status: Active Protocol: Document 12/30/21 15:18 [facility] (Rec: 12/30/21 16:31 [facility] [id number]) Manual Assessments Soft Tissue Assessment Soft Tissue Mobility Assessment Pt still has some scabbing towards ant aspect of lat scar and med scar Other Manual Assessments Other Manual Assessments 21.1 cm L MT base R 20.9 25.3 cm L malleoli R 24.1 PT-OP-G Mobility & Gait Start: 12/26/21 17:49 Freq: Status: Active Protocol: Document 12/30/21 15:18 [facility] (Rec: 12/30/21 16:31 [facility] [id number]) OP Gait Assessment Comments Gait Comments Dec stance time on LLE and no push off LLE, slow gait PT-OP-K Range of Motion Start: 12/26/21 17:49 Freq: Status: Active Protocol: Document 12/30/21 15:18 [facility] (Rec: 12/30/21 16:31 [facility] [id number]) Ankle and Foot Goniometric Range of Motion Ankle and Foot Right Active Dorsiflexion with Knee Flexed 5 Dorsiflexion with Knee Extended 9 Plantarflexion 50 Inversion 28 Eversion 12 Comments lacking DF to neutral in knee ext positon Left Active Dorsiflexion with Knee Flexed 2 Dorsiflexion with Knee Extended 9 Plantarflexion 50 Inversion 8 Eversion 12 Comments lacking DF to neutral in knee ext positon Toe Range of Motion Toe Right Great Toe MTP Extension Active (degrees) 30 MTP Extension Passive (degrees) 55 Left Great Toe MTP Extension Active (degrees) 10 MTP Extension Passive (degrees) 15 Comments 20 deg valgus PT-OP-L Special Tests Start: 12/26/21 17:49 Freq: Status: Active Protocol: Document 12/30/21 15:18 [facility] (Rec: 12/30/21 16:31 [facility] [id number]) Special Tests Other Special Tests Special Tests 45 deg R HS tightness SLR, 64 Deg L PT-OP-M Strength Start: 12/26/21 17:49 Freq: Status: Active Protocol: Document 12/30/21 15:18 [facility] (Rec: 12/30/21 16:31 [facility] [id number]) Hip Strength Hip Manual Muscle Testing Right Flexion (L2) 4+ Good+ Extension (S1) 4 Good Abduction 4 Good External Rotation 4- Good- Internal Rotation 4 Good Left Flexion (L2) 4- Good- Extension (S1) 3+ Fair+ Abduction 4 Good External Rotation 4- Good- Internal Rotation 3 Fair Knee Strength Knee Manual Muscle Testing Right Flexion (S2) 5 Normal Extension (L3) 5 Normal Left Flexion (S2) 5 Normal Extension (L3) 5 Normal Ankle/Foot Strength Ankle and Foot Manual Muscle Testing Right Dorsiflexion (L4) 5 Normal Plantarflexion (S1) 5 Normal Inversion 5 Normal Eversion (S1) 5 Normal Comments 20 heel raises Left Dorsiflexion (L4) 4 Good Plantarflexion (S1) 3- Fair- Inversion 3+ Fair+ Eversion (S1) 3+ Fair+ Comments pain eversion; unable to do heel raises Toe Strength Toe Manual Muscle Testing Right Great Toe Flexion 5 Normal Extension 5 Normal Left Great Toe Flexion 3+ Fair+ Extension 4- Good- PT-OP-Q Treatments Start: 12/26/21 17:49 Freq: Status: Active Protocol: Document 02/19/22 14:28 MA (Rec: 02/19/22 15:18 MA [id number]) Therapeutic Exercises Sitting Exercises stretch Sitting Exercise Name calf, plantar fascia Side bilateral Reps/Minutes 30 sec Standing Exercises stretch Standing Exercise Name gastroc Side bilateral Reps/Minutes 30 sec Manual Therapy Treatment Soft Tissue Mobilization calf Body Location L Mobilization Type Myofascial Release Intensity/Depth Moderate scar Body Location lat & post scar & med proximal scar Mobilization Type Myofascial Release,Rolling Intensity/Depth Superficial Body Position Supine Manual Techniques PROM Type L ankle PF, DF, inversion, eversion gentle Body Position Supine Comments with gentle traction Neuro Re-Education Treatment Balance Activities Tandem Details tandem corner balance Reps/Duration 2x1' ea Comments added to HEP SL Details SLS trials L foam Comments tandem and SLS with rail prn PT-OP-R Modalities Start: 12/26/21 17:49 Freq: Status: Active Protocol: Document 02/19/22 14:28 MA (Rec: 02/19/22 15:18 MA [id number]) Hot Pack/Cold Pack Treatment Ice Massage Location L medial ankle Patient Position Supine Treatment Duration (minutes) 5 Patient Tolerance Good PT-OP-T Assessment and Plan Start: 12/26/21 17:49 Freq: Status: Active Protocol: Document 02/19/22 14:28 MA (Rec: 02/19/22 15:18 MA [id number]) Physical Therapy Assessment Goals balance Control Systems Developer Goal (LTG) pt will be able to do SLS 20 sec B w/o LOB to show improved stability. LTG Duration 04/01/22 strength Short Term Goal (STG) Pt will be indep w/HEP STG Duration 01/30/22 Skilled Nursing Goal (LTG) Pt will score at least 5/5 on BLE MMT to show improved strength to allow pt to do typical activities w/o inc pain. LTG Duration 04/01/22 ROM Short Term Goal (STG) Pt will improve to DF to neutral on L in knee ext position. STG Duration 02/27/22 Control Systems Developer Goal (LTG) Pt will have within 5 deg ROM of L ankle to R ankle to improve pt ability to negotiate the community. LTG Duration 04/01/22 work Short Term Goal (STG) Pt will be able to return to light duty work w/pain no greater than 4/10 STG Duration 02/27/22 Control Systems Developer Goal (LTG) Pt will be able to return to full duty work w/o L foot/ ankle pain greater than 2/10 LTG Duration 04/01/22 gardening Short Term Goal (STG) Pt will be able to get up/down from the ground indep to allow for gardening. STG Duration 02/27/22 Control Systems Developer Goal (LTG) Pt will be able to do all tasks for gardening w/o inc pain. LTG Duration 03/29/22 LEFS Impairment 23/80 Short Term Goal (STG) Pt will improved LEFS to at least 45/80 to show improved function. STG Duration 02/27/22 Skilled Nursing Goal (LTG) Pt will improved LEFS to at least 70/80 to show improved function. LTG Duration 04/01/22 Assessment Summary Assessment Pt continues to have increased swelling through medial L ankle. Swelling and ROM improve after exercises and ice. Fern is challenged by all balance work. She reports not doing much on her bosu at home since starting work back at [employer] but has been using her stationary bike with the goal of losing weight. Added tandem corner balance to HEP today and will continue to progress balance and ROM in future sessions. Physical Therapy Plan Frequency and Duration Frequency of Treatment 1-2x/week Duration of Treatment 3 months Plan of Care Start Date 12/30/21 Plan of Care End Date 04/01/22 Therapeutic Interventions Therapeutic Interventions Aquatic Therapy,Balance Training,Gait Training,Home Exercise Program,Joint Mobilizations,Manual Therapy, Neuromuscular Re-education, Patient/Caregiver Education, Self-Care/Home Management,Soft Tissue Mobilization,Taping, Therapeutic Activities, Therapeutic Exercises Modalities Cold Pack/Ice Massage,Electric Stimulation,Hot Packs, Infrared Therapy,Ultrasound Next Visit Focus/Plan Next Note Type Treatment Note Next Visit Plan Start with stationary bike and assess pt's ankle mobility as pt is using her peloton at home. F/u on tandem corner balance added to HEP. Review exercises,cont to work balance & ROM and ankle stability and manual for foot mobility
--- NOTE | 2022-02-19 16:14 | PT.OTN ---
Current Diagnoses Hallux valgus (acquired), left foot (02/19/22) Flat foot [pes planus] (acquired), unspecified foot (02/19/22) Other acquired deformities of left foot (02/19/22) Difficulty in walking, not elsewhere classified (02/19/22) Other abnormalities of gait and mobility (02/19/22) Weakness (02/19/22) Physical Therapy Treatment Note PT-OP-A Visit Information Start: 12/26/21 17:49 Freq: Status: Active Protocol: Document 02/19/22 14:28 MA (Rec: 02/19/22 15:18 MD [id number]) Out-Patient Physical Therapy Visit Information Visit Information Visit Type Treatment Note Visit Note 24 visits in a year Visit Start Time 14:30 Visit Stop Time 15:15 Total Visit Minutes 45 Visit Number 11 Number of PICKING MACHINE OPERATOR HELPER Visits 3 PT-OP-B Current Condition Start: 12/26/21 17:49 Freq: Status: Active Protocol: Document 12/30/21 15:18 [facility] (Rec: 12/30/21 16:31 [facility] [id number]) Current Condition History of Current Condition Onset Date Sep 13 sx Current Complaints s/p L foot surgery History of Current Condition Pt reports foot pain all the time since injury jumping on tramp in where she sprained ankle. She was getting really painful to walk so she couldn 't do her duties for work. 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 She sees Dr. Dao tomorrow. Pt has been wearing her post op shoe mostly but is allowed to wear her sneakers but they feel too tight. Pt likes to color, going to [employer] study, gardening, going for walks ( was limited prior to surgery d /t pain). No other history of joint pain. Has not tried much walking. Prior Treatments and Tests surgery Aug-L foot medial calcaneal slide osteotomy w/Alvarez Calcaneal osteotomy, correction of L hallux valgus w/arthrodesis of first tartsometatarsal jt, L bunion correction, L gastroc recession Treatment Goals Patient/Caregiver Goals Be able to go up/down ladder cart while carrying heavy objects to stock things, start gardening, be able to get up/ down from the ground indep, be able to go for walks, get a good workout routine for good fitness habits Personal Factors Other Personal Factors That May Effect depression, anxiety, Therapy/Recovery schitzophrenia, hx drug abus PT-OP-C Subjective Start: 12/26/21 17:49 Freq: Status: Active Protocol: Document 02/19/22 14:28 MA (Rec: 02/19/22 15:18 MA [id number]) OP-PT Subjective Patient Comments Patient Comments Pt has had two days off work but her ankle is still a little swollen today. She has been riding her [employer] bike at home and reports losing 12 pounds in two weeks. She has no pain when using the bike. PT-OP-F Manual Assessment Start: 12/26/21 17:49 Freq: Status: Active Protocol: Document 12/30/21 15:18 [facility] (Rec: 12/30/21 16:31 [facility] [id number]) Manual Assessments Soft Tissue Assessment Soft Tissue Mobility Assessment Pt still has some scabbing towards ant aspect of lat scar and med scar Other Manual Assessments Other Manual Assessments 21.1 cm L MT base R 20.9 25.3 cm L malleoli R 24.1 PT-OP-G Mobility & Gait Start: 12/26/21 17:49 Freq: Status: Active Protocol: Document 12/30/21 15:18 [facility] (Rec: 12/30/21 16:31 [facility] [id number]) OP Gait Assessment Comments Gait Comments Dec stance time on LLE and no push off LLE, slow gait PT-OP-K Range of Motion Start: 12/26/21 17:49 Freq: Status: Active Protocol: Document 12/30/21 15:18 [facility] (Rec: 12/30/21 16:31 [facility] [id number]) Ankle and Foot Goniometric Range of Motion Ankle and Foot Right Active Dorsiflexion with Knee Flexed 5 Dorsiflexion with Knee Extended 9 Plantarflexion 50 Inversion 28 Eversion 12 Comments lacking DF to neutral in knee ext positon Left Active Dorsiflexion with Knee Flexed 2 Dorsiflexion with Knee Extended 9 Plantarflexion 50 Inversion 8 Eversion 12 Comments lacking DF to neutral in knee ext positon Toe Range of Motion Toe Right Great Toe MTP Extension Active (degrees) 30 MTP Extension Passive (degrees) 55 Left Great Toe MTP Extension Active (degrees) 10 MTP Extension Passive (degrees) 15 Comments 20 deg valgus PT-OP-L Special Tests Start: 12/26/21 17:49 Freq: Status: Active Protocol: Document 12/30/21 15:18 [facility] (Rec: 12/30/21 16:31 [facility] [id number]) Special Tests Other Special Tests Special Tests 45 deg R HS tightness SLR, 64 Deg L PT-OP-M Strength Start: 12/26/21 17:49 Freq: Status: Active Protocol: Document 12/30/21 15:18 [facility] (Rec: 12/30/21 16:31 [facility] [id number]) Hip Strength Hip Manual Muscle Testing Right Flexion (L2) 4+ Good+ Extension (S1) 4 Good Abduction 4 Good External Rotation 4- Good- Internal Rotation 4 Good Left Flexion (L2) 4- Good- Extension (S1) 3+ Fair+ Abduction 4 Good External Rotation 4- Good- Internal Rotation 3 Fair Knee Strength Knee Manual Muscle Testing Right Flexion (S2) 5 Normal Extension (L3) 5 Normal Left Flexion (S2) 5 Normal Extension (L3) 5 Normal Ankle/Foot Strength Ankle and Foot Manual Muscle Testing Right Dorsiflexion (L4) 5 Normal Plantarflexion (S1) 5 Normal Inversion 5 Normal Eversion (S1) 5 Normal Comments 20 heel raises Left Dorsiflexion (L4) 4 Good Plantarflexion (S1) 3- Fair- Inversion 3+ Fair+ Eversion (S1) 3+ Fair+ Comments pain eversion; unable to do heel raises Toe Strength Toe Manual Muscle Testing Right Great Toe Flexion 5 Normal Extension 5 Normal Left Great Toe Flexion 3+ Fair+ Extension 4- Good- PT-OP-Q Treatments Start: 12/26/21 17:49 Freq: Status: Active Protocol: Document 02/19/22 14:28 MA (Rec: 02/19/22 15:18 MA [id number]) Therapeutic Exercises Sitting Exercises stretch Sitting Exercise Name calf, plantar fascia Side bilateral Reps/Minutes 30 sec Standing Exercises stretch Standing Exercise Name gastroc Side bilateral Reps/Minutes 30 sec Manual Therapy Treatment Soft Tissue Mobilization calf Body Location L Mobilization Type Myofascial Release Intensity/Depth Moderate scar Body Location lat & post scar & med proximal scar Mobilization Type Myofascial Release,Rolling Intensity/Depth Superficial Body Position Supine Manual Techniques PROM Type L ankle PF, DF, inversion, eversion gentle Body Position Supine Comments with gentle traction Neuro Re-Education Treatment Balance Activities Tandem Details tandem corner balance Reps/Duration 2x1' ea Comments added to HEP SL Details SLS trials L foam Comments tandem and SLS with rail prn PT-OP-R Modalities Start: 12/26/21 17:49 Freq: Status: Active Protocol: Document 02/19/22 14:28 MA (Rec: 02/19/22 15:18 MA [id number]) Hot Pack/Cold Pack Treatment Ice Massage Location L medial ankle Patient Position Supine Treatment Duration (minutes) 5 Patient Tolerance Good PT-OP-T Assessment and Plan Start: 12/26/21 17:49 Freq: Status: Active Protocol: Document 02/19/22 14:28 MA (Rec: 02/19/22 15:18 MA [id number]) Physical Therapy Assessment Goals balance Nursery Worker Goal (LTG) pt will be able to do SLS 20 sec B w/o LOB to show improved stability. LTG Duration 04/01/22 strength Short Term Goal (STG) Pt will be indep w/HEP STG Duration 01/30/22 Custodial Goal (LTG) Pt will score at least 5/5 on BLE MMT to show improved strength to allow pt to do typical activities w/o inc pain. LTG Duration 04/01/22 ROM Short Term Goal (STG) Pt will improve to DF to neutral on L in knee ext position. STG Duration 02/27/22 Nursery Worker Goal (LTG) Pt will have within 5 deg ROM of L ankle to R ankle to improve pt ability to negotiate the community. LTG Duration 04/01/22 work Short Term Goal (STG) Pt will be able to return to light duty work w/pain no greater than 4/10 STG Duration 02/27/22 Nursery Worker Goal (LTG) Pt will be able to return to full duty work w/o L foot/ ankle pain greater than 2/10 LTG Duration 04/01/22 gardening Short Term Goal (STG) Pt will be able to get up/down from the ground indep to allow for gardening. STG Duration 02/27/22 Nursery Worker Goal (LTG) Pt will be able to do all tasks for gardening w/o inc pain. LTG Duration 03/29/22 LEFS Impairment 23/80 Short Term Goal (STG) Pt will improved LEFS to at least 45/80 to show improved function. STG Duration 02/27/22 Custodial Goal (LTG) Pt will improved LEFS to at least 70/80 to show improved function. LTG Duration 04/01/22 Assessment Summary Assessment Pt continues to have increased swelling through medial L ankle. Swelling and ROM improve after exercises and ice. Fern is challenged by all balance work. She reports not doing much on her bosu at home since starting work back at [employer] but has been using her stationary bike with the goal of losing weight. Added tandem corner balance to HEP today and will continue to progress balance and ROM in future sessions. Physical Therapy Plan Frequency and Duration Frequency of Treatment 1-2x/week Duration of Treatment 3 months Plan of Care Start Date 12/30/21 Plan of Care End Date 04/01/22 Therapeutic Interventions Therapeutic Interventions Aquatic Therapy,Balance Training,Gait Training,Home Exercise Program,Joint Mobilizations,Manual Therapy, Neuromuscular Re-education, Patient/Caregiver Education, Self-Care/Home Management,Soft Tissue Mobilization,Taping, Therapeutic Activities, Therapeutic Exercises Modalities Cold Pack/Ice Massage,Electric Stimulation,Hot Packs, Infrared Therapy,Ultrasound Next Visit Focus/Plan Next Note Type Treatment Note Next Visit Plan Start with stationary bike and assess pt's ankle mobility as pt is using her peloton at home. F/u on tandem corner balance added to HEP. Review exercises,cont to work balance & ROM and ankle stability and manual for foot mobility
--- NOTE | 2022-02-24 18:11 | PT.OTN ---
Current Diagnoses Hallux valgus (acquired), left foot (02/24/22) Flat foot [pes planus] (acquired), unspecified foot (02/24/22) Other acquired deformities of left foot (02/24/22) Difficulty in walking, not elsewhere classified (02/24/22) Other abnormalities of gait and mobility (02/24/22) Weakness (02/24/22) Physical Therapy Treatment Note PT-OP-A Visit Information Start: 12/26/21 17:49 Freq: Status: Active Protocol: Document 02/24/22 13:40 [facility] (Rec: 02/24/22 18:09 [facility] [id number]) Out-Patient Physical Therapy Visit Information Visit Information Visit Type Progress Note Visit Note 24 visits in a year Visit Start Time 13:51 Visit Stop Time 14:41 Total Visit Minutes 50 Visit Number 12 Number of FISHING VESSEL MATE Visits 0 PT-OP-B Current Condition Start: 12/26/21 17:49 Freq: Status: Active Protocol: Document 12/30/21 15:18 [facility] (Rec: 12/30/21 16:31 [facility] [id number]) Current Condition History of Current Condition Onset Date Sep 13 sx Current Complaints s/p L foot surgery History of Current Condition Pt reports foot pain all the time since injury jumping on tramp in where she sprained ankle. She was getting really painful to walk so she couldn 't do her duties for work. 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 She sees Dr. Dao tomorrow. Pt has been wearing her post op shoe mostly but is allowed to wear her sneakers but they feel too tight. Pt likes to color, going to [email or web address] study, gardening, going for walks ( was limited prior to surgery d /t pain). No other history of joint pain. Has not tried much walking. Prior Treatments and Tests surgery Aug-L foot medial calcaneal slide osteotomy w/Alvarez Calcaneal osteotomy, correction of L hallux valgus w/arthrodesis of first tartsometatarsal jt, L bunion correction, L gastroc recession Treatment Goals Patient/Caregiver Goals Be able to go up/down ladder cart while carrying heavy objects to stock things, start gardening, be able to get up/ down from the ground indep, be able to go for walks, get a good workout routine for good fitness habits Personal Factors Other Personal Factors That May Effect depression, anxiety, Therapy/Recovery schitzophrenia, hx drug abus PT-OP-C Subjective Start: 12/26/21 17:49 Freq: Status: Active Protocol: Document 02/24/22 13:40 [facility] (Rec: 02/24/22 18:09 [facility] [id number]) OP-PT Subjective Patient Comments Patient Comments Pt reports doing Ankle ROM exercises but not as much other exercises d/t a lot of pain after work. PT-OP-F Manual Assessment Start: 12/26/21 17:49 Freq: Status: Active Protocol: Document 12/30/21 15:18 [facility] ([facility] 12/30/21 [id number] Manual Assessments Soft Tissue Assessment Soft Tissue Mobility Assessment Pt still has some scabbing towards ant aspect of lat scar and med scar Other Manual Assessments Other Manual Assessments 21.1 cm L MT base R 20.9 25.3 cm L malleoli R 24.1 PT-OP-G Mobility & Gait Start: 12/26/21 17:49 Freq: Status: Active Protocol: Document 12/30/21 15:18 [facility] (Rec: 12/30/21 16:31 [facility] [id number]) OP Gait Assessment Comments Gait Comments Dec stance time on LLE and no push off LLE, slow gait PT-OP-K Range of Motion Start: 12/26/21 17:49 Freq: Status: Active Protocol: Document 02/24/22 13:40 [facility] (Rec: 02/24/22 18:09 [facility] [id number]) Ankle and Foot Goniometric Range of Motion Ankle and Foot Left Active Dorsiflexion with Knee Flexed 2 Dorsiflexion with Knee Extended 0 Plantarflexion 39 Inversion 5 Eversion 15 Comments n PT-OP-L Special Tests Start: 12/26/21 17:49 Freq: Status: Active Protocol: Document 12/30/21 15:18 [facility] (Rec: 12/30/21 16:31 [facility] [id number]) Special Tests Other Special Tests Special Tests 45 deg R HS tightness SLR, 64 Deg L PT-OP-M Strength Start: 12/26/21 17:49 Freq: Status: Active Protocol: Document 02/24/22 13:40 [facility] (Rec: 02/24/22 18:09 [facility] [id number]) Hip Strength Hip Manual Muscle Testing Right Flexion (L2) 5 Normal Extension (S1) 4 Good Abduction 4 Good External Rotation 4+ Good+ Internal Rotation 4+ Good+ Left Flexion (L2) 4 Good Extension (S1) 4- Good- Abduction 4+ Good+ Adduction 4 Good External Rotation 4 Good Internal Rotation 3+ Fair+ Knee Strength Knee Manual Muscle Testing Right Flexion (S2) 5 Normal Extension (L3) 5 Normal Left Flexion (S2) 5 Normal Extension (L3) 5 Normal Ankle/Foot Strength Ankle and Foot Manual Muscle Testing Right Dorsiflexion (L4) 5 Normal Plantarflexion (S1) 5 Normal Inversion 5 Normal Eversion (S1) 5 Normal Comments 20 heel raises Left Dorsiflexion (L4) 4+ Good+ Plantarflexion (S1) 3- Fair- Inversion 3+ Fair+ Eversion (S1) 4 Good Comments unable to do heel raises PT-OP-Q Treatments Start: 12/26/21 17:49 Freq: Status: Active Protocol: Document 02/24/22 13:40 [facility] (Rec: 02/24/22 18:09 [facility] [id number]) Therapeutic Exercises Sitting Exercises stretch Sitting Exercise Name plantar fascia Side left Reps/Minutes 30 sec ROM Sitting Exercise Name toe abd Side left Reps/Minutes 10 Standing Exercises big toe Standing Exercise Name stretch into DF Side left Reps/Minutes 30 sec stretch Standing Exercise Name 1.gastroc 2. soleus Side left Reps/Minutes 30 sec ea heel raises Side bilateral Reps/Minutes 10 Manual Therapy Treatment Soft Tissue Mobilization scar Body Location lat & post scar & med proximal scar Mobilization Type Myofascial Release,Rolling Intensity/Depth Superficial Body Position Supine plantar fascia Body Location L Mobilization Type Rolling Intensity/Depth Moderate Body Position Supine Joint Mobilizations talus Direction AP FM Body Position Standing tib fib Joint AP FM L tibia & PA fibula FM MTP Joint 1st L Direction distraction & AP Grade II Neuro Re-Education Treatment Balance Activities SL Details SLS trials L Self-Care/Home Management Treatment Education Other Education edu to pt importance of doing exercises still even though she is working. Edu re: compression and to try either her small ankle compression brace or compression stockings that she has d/t notable swelling. PT-OP-R Modalities Start: 12/26/21 17:49 Freq: Status: Active Protocol: Document 02/24/22 13:40 [facility] (Rec: 02/24/22 18:09 [facility] [id number]) Hot Pack/Cold Pack Treatment ice Location L ankle cryocuff Patient Position Hooklying Treatment Duration (minutes) 10 PT-OP-T Assessment and Plan Start: 12/26/21 17:49 Freq: Status: Active Protocol: Document 02/24/22 13:40 [facility] (Rec: 02/24/22 18:09 [facility] [id number]) Physical Therapy Assessment Goals balance Manager Coding Goal (LTG) pt will be able to do SLS 20 sec B w/o LOB to show improved stability. 02/24-L only 2 sec LTG Duration 04/01/22 strength Short Term Goal (STG) Pt will be indep w/HEP 02/24-updated to encourage pt to do more at home STG Duration 01/30/22 Manager Coding Goal (LTG) Pt will score at least 5/5 on BLE MMT to show improved strength to allow pt to do typical activities w/o inc pain. 02/24-improved LTG Duration 04/01/22 ROM Short Term Goal (STG) Pt will improve to DF to neutral on L in knee ext position. STG Duration achived 02/24 Manager Coding Goal (LTG) Pt will have within 5 deg ROM of L ankle to R ankle to improve pt ability to negotiate the community. 02/24-improved LTG Duration 04/01/22 work Short Term Goal (STG) Pt will be able to return to light duty work w/pain no greater than 4/10 02/24-pt went straight to full duty and is noting a lot of pain STG Duration 02/27/22 Retirement Goal (LTG) Pt will be able to return to full duty work w/o L foot/ ankle pain greater than 2/10 LTG Duration 04/01/22 gardening Short Term Goal (STG) Pt will be able to get up/down from the ground indep to allow for gardening. STG Duration 02/27/22 Retirement Goal (LTG) Pt will be able to do all tasks for gardening w/o inc pain. LTG Duration 03/29/22 LEFS Impairment 23/80 Short Term Goal (STG) Pt will improved LEFS to at least 45/80 to show improved function. STG Duration 02/27/22 Manager Coding Goal (LTG) Pt will improved LEFS to at least 70/80 to show improved function. LTG Duration 04/01/22 Assessment Summary Assessment Pt required significant encouragement to make sure she is performing HEP. Edu on importance.S he is improving w /DF but did have signfiicant swelling today and was encouraged to cont to ice and to wear compression to work. Pt has tenderss w/ mobilizations, but does have signficiant stiffness that is creating restriction. Physical Therapy Plan Frequency and Duration Frequency of Treatment 1-2x/week Duration of Treatment 3 months Plan of Care Start Date 12/30/21 Plan of Care End Date 04/01/22 Therapeutic Interventions Therapeutic Interventions Aquatic Therapy,Balance Training,Gait Training,Home Exercise Program,Joint Mobilizations,Manual Therapy, Neuromuscular Re-education, Patient/Caregiver Education, Self-Care/Home Management,Soft Tissue Mobilization,Taping, Therapeutic Activities, Therapeutic Exercises Modalities Cold Pack/Ice Massage,Electric Stimulation,Hot Packs, Infrared Therapy,Ultrasound Next Visit Focus/Plan Next Note Type Treatment Note Next Visit Plan follow up on pt compliance w/ HEP cont to work balance & ROM and ankle stability and manual for foot mobility
--- NOTE | 2022-02-27 15:40 | PT.OTN ---
Current Diagnoses Hallux valgus (acquired), left foot (02/27/22) Flat foot [pes planus] (acquired), unspecified foot (02/27/22) Other acquired deformities of left foot (02/27/22) Difficulty in walking, not elsewhere classified (02/27/22) Other abnormalities of gait and mobility (02/27/22) Weakness (02/27/22) Physical Therapy Treatment Note PT-OP-A Visit Information Start: 12/26/21 17:49 Freq: Status: Active Protocol: Document 02/27/22 14:33 [facility] (Rec: 02/27/22 15:39 [facility] [id number]) Out-Patient Physical Therapy Visit Information Visit Information Visit Type Treatment Note Visit Note 24 visits in a year Visit Start Time 14:35 Visit Stop Time 15:20 Total Visit Minutes 45 Visit Number 13 Number of WATER FILTERER HELPER Visits 1 PT-OP-B Current Condition Start: 12/26/21 17:49 Freq: Status: Active Protocol: Document 12/30/21 15:18 [facility] (Rec: 12/30/21 16:31 [facility] [id number]) Current Condition History of Current Condition Onset Date Sep 13 sx Current Complaints s/p L foot surgery History of Current Condition Pt reports foot pain all the time since injury jumping on tramp in where she sprained ankle. She was getting really painful to walk so she couldn 't do her duties for work. 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 She sees Dr. Dao tomorrow. Pt has been wearing her post op shoe mostly but is allowed to wear her sneakers but they feel too tight. Pt likes to color, going to [employer] study, gardening, going for walks ( was limited prior to surgery d /t pain). No other history of joint pain. Has not tried much walking. Prior Treatments and Tests surgery Aug-L foot medial calcaneal slide osteotomy w/Alvarez Calcaneal osteotomy, correction of L hallux valgus w/arthrodesis of first tartsometatarsal jt, L bunion correction, L gastroc recession Treatment Goals Patient/Caregiver Goals Be able to go up/down ladder cart while carrying heavy objects to stock things, start gardening, be able to get up/ down from the ground indep, be able to go for walks, get a good workout routine for good fitness habits Personal Factors Other Personal Factors That May Effect depression, anxiety, Therapy/Recovery schitzophrenia, hx drug abus PT-OP-C Subjective Start: 12/26/21 17:49 Freq: Status: Active Protocol: Document 02/27/22 14:33 [facility] (Rec: 02/27/22 15:39 [facility] [id number]) OP-PT Subjective Patient Comments Patient Comments Pt arrives limping to PT. She states there is a bump on her ankle and she doesn't know if it's a screw or what is wrong but it hurts her. PT-OP-F Manual Assessment Start: 12/26/21 17:49 Freq: Status: Active Protocol: Document 12/30/21 15:18 [facility] (Rec: 12/30/21 16:31 [facility] [id number]) Manual Assessments Soft Tissue Assessment Soft Tissue Mobility Assessment Pt still has some scabbing towards ant aspect of lat scar and med scar Other Manual Assessments Other Manual Assessments 21.1 cm L MT base R 20.9 25.3 cm L malleoli R 24.1 PT-OP-G Mobility & Gait Start: 12/26/21 17:49 Freq: Status: Active Protocol: Document 12/30/21 15:18 [facility] (Rec: 12/30/21 16:31 [facility] [id number]) OP Gait Assessment Comments Gait Comments Dec stance time on LLE and no push off LLE, slow gait PT-OP-K Range of Motion Start: 12/26/21 17:49 Freq: Status: Active Protocol: Document 02/24/22 13:40 [facility] (Rec: 02/24/22 18:09 [facility] [id number]) Ankle and Foot Goniometric Range of Motion Ankle and Foot Left Active Dorsiflexion with Knee Flexed 2 Dorsiflexion with Knee Extended 0 Plantarflexion 39 Inversion 5 Eversion 15 Comments n PT-OP-L Special Tests Start: 12/26/21 17:49 Freq: Status: Active Protocol: Document 12/30/21 15:18 [facility] (Rec: 12/30/21 16:31 [facility] [id number]) Special Tests Other Special Tests Special Tests 45 deg R HS tightness SLR, 64 Deg L PT-OP-M Strength Start: 12/26/21 17:49 Freq: Status: Active Protocol: Document 02/24/22 13:40 [facility] (Rec: 02/24/22 18:09 [facility] [id number]) Hip Strength Hip Manual Muscle Testing Right Flexion (L2) 5 Normal Extension (S1) 4 Good Abduction 4 Good External Rotation 4+ Good+ Internal Rotation 4+ Good+ Left Flexion (L2) 4 Good Extension (S1) 4- Good- Abduction 4+ Good+ Adduction 4 Good External Rotation 4 Good Internal Rotation 3+ Fair+ Knee Strength Knee Manual Muscle Testing Right Flexion (S2) 5 Normal Extension (L3) 5 Normal Left Flexion (S2) 5 Normal Extension (L3) 5 Normal Ankle/Foot Strength Ankle and Foot Manual Muscle Testing Right Dorsiflexion (L4) 5 Normal Plantarflexion (S1) 5 Normal Inversion 5 Normal Eversion (S1) 5 Normal Comments 20 heel raises Left Dorsiflexion (L4) 4+ Good+ Plantarflexion (S1) 3- Fair- Inversion 3+ Fair+ Eversion (S1) 4 Good Comments unable to do heel raises PT-OP-Q Treatments Start: 12/26/21 17:49 Freq: Status: Active Protocol: Document 02/27/22 14:33 [facility] (Rec: 02/27/22 15:39 [facility] [id number]) Therapeutic Exercises Standing Exercises stretch Standing Exercise Name 1.gastroc 2. soleus Side left Reps/Minutes 30 sec ea heel raises Standing Exercise Name hands on wall, leaning into wall Side bilateral Reps/Minutes 10 Gait Training Gait Activity Walking Surface smooth Distance/Duration 2x25 ft Comments working on decreasing ER of LLE and improving push off Manual Therapy Treatment Soft Tissue Mobilization calf Body Location L Mobilization Type Myofascial Release Intensity/Depth Moderate scar Body Location lat & post scar & med proximal scar Mobilization Type Myofascial Release,Rolling Intensity/Depth Superficial Body Position Supine plantar fascia Body Location L Mobilization Type Rolling Intensity/Depth Moderate Body Position Supine Joint Mobilizations talus Direction AP FM Body Position Standing Manual Techniques PROM Type L ankle PF, DF, inversion, eversion gentle Body Position Supine Comments with gentle traction Neuro Re-Education Treatment Balance Activities SL Details SLS trials L PT-OP-R Modalities Start: 12/26/21 17:49 Freq: Status: Active Protocol: Document 02/27/22 14:33 [facility] (Rec: 02/27/22 15:39 [facility] [id number]) Hot Pack/Cold Pack Treatment Ice Massage Location L lateral ankle Patient Position Supine Treatment Duration (minutes) 5 Patient Tolerance Good PT-OP-T Assessment and Plan Start: 12/26/21 17:49 Freq: Status: Active Protocol: Document 02/27/22 14:33 [facility] (Rec: 02/27/22 15:39 [facility] [id number]) Physical Therapy Assessment Goals balance Care Home Goal (LTG) pt will be able to do SLS 20 sec B w/o LOB to show improved stability. 02/24-L only 2 sec LTG Duration 04/01/22 strength Short Term Goal (STG) Pt will be indep w/HEP 02/24-updated to encourage pt to do more at home STG Duration 01/30/22 Care Home Goal (LTG) Pt will score at least 5/5 on BLE MMT to show improved strength to allow pt to do typical activities w/o inc pain. 02/24-improved LTG Duration 04/01/22 ROM Short Term Goal (STG) Pt will improve to DF to neutral on L in knee ext position. STG Duration achived 02/24 Care Home Goal (LTG) Pt will have within 5 deg ROM of L ankle to R ankle to improve pt ability to negotiate the community. 02/24-improved LTG Duration 04/01/22 work Short Term Goal (STG) Pt will be able to return to light duty work w/pain no greater than 4/10 02/24-pt went straight to full duty and is noting a lot of pain STG Duration 02/27/22 Care Home Goal (LTG) Pt will be able to return to full duty work w/o L foot/ ankle pain greater than 2/10 LTG Duration 04/01/22 gardening Short Term Goal (STG) Pt will be able to get up/down from the ground indep to allow for gardening. STG Duration 02/27/22 Care Home Goal (LTG) Pt will be able to do all tasks for gardening w/o inc pain. LTG Duration 03/29/22 LEFS Impairment 23/80 Short Term Goal (STG) Pt will improved LEFS to at least 45/80 to show improved function. STG Duration 02/27/22 Client Support Analyst Goal (LTG) Pt will improved LEFS to at least 70/80 to show improved function. LTG Duration 04/01/22 Assessment Summary Assessment Pt has increased PF/DF ROM after manual to L ankle but continues to lack ROM through all planes. She has redness and increased pain on lateral L ankle over scar. Pt does have raised area in this region which may be where hardware from surgery is, or from eccessive bone growth after surgery. This raised area is rubbing against her shoe when she walks causing irritation. Encouraged pt to follow up with surgeon during appt next week. Pt arrives to therapy with increased LLE ER and decreased push off. Worked on neutral alignemnt and increasing push off at end of session. Will continue working on balance, ROM, and gait next session. Physical Therapy Plan Frequency and Duration Frequency of Treatment 1-2x/week Duration of Treatment 3 months Plan of Care Start Date 12/30/21 Plan of Care End Date 04/01/22 Therapeutic Interventions Therapeutic Interventions Aquatic Therapy,Balance Training,Gait Training,Home Exercise Program,Joint Mobilizations,Manual Therapy, Neuromuscular Re-education, Patient/Caregiver Education, Self-Care/Home Management,Soft Tissue Mobilization,Taping, Therapeutic Activities, Therapeutic Exercises Modalities Cold Pack/Ice Massage,Electric Stimulation,Hot Packs, Infrared Therapy,Ultrasound Next Visit Focus/Plan Next Note Type Treatment Note Next Visit Plan cont to work balance, ankle stability, gait, and ROM; manual for foot mobility
--- NOTE | 2022-03-04 15:31 | PT-OP ANOTE ---
Pt's mom was called re: no show and mom noted she called earlier to say that she was unable to make the appointment d/t running late back into town.
--- NOTE | 2022-03-06 15:21 | PT.OTN ---
Current Diagnoses Hallux valgus (acquired), left foot (03/06/22) Flat foot [pes planus] (acquired), unspecified foot (03/06/22) Other acquired deformities of left foot (03/06/22) Difficulty in walking, not elsewhere classified (03/06/22) Other abnormalities of gait and mobility (03/06/22) Weakness (03/06/22) Physical Therapy Treatment Note PT-OP-A Visit Information Start: 12/26/21 17:49 Freq: Status: Active Protocol: Document 03/06/22 14:37 [facility] (Rec: 03/06/22 15:21 [facility] [id number]) Out-Patient Physical Therapy Visit Information Visit Information Visit Type Treatment Note Visit Note 24 visits in a year Visit Start Time 14:37 Visit Stop Time 15:15 Total Visit Minutes 38 Visit Number 14 Number of MAINTENANCE CHIEF Visits 0 PT-OP-B Current Condition Start: 12/26/21 17:49 Freq: Status: Active Protocol: Document 12/30/21 15:18 [facility] (Rec: 12/30/21 16:31 [facility] [id number]) Current Condition History of Current Condition Onset Date Sep 13 sx Current Complaints s/p L foot surgery History of Current Condition Pt reports foot pain all the time since injury jumping on tramp in where she sprained ankle. She was getting really painful to walk so she couldn 't do her duties for work. 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 She sees Dr. Dao tomorrow. Pt has been wearing her post op shoe mostly but is allowed to wear her sneakers but they feel too tight. Pt likes to color, going to [employer] study, gardening, going for walks ( was limited prior to surgery d /t pain). No other history of joint pain. Has not tried much walking. Prior Treatments and Tests surgery Aug-L foot medial calcaneal slide osteotomy w/Alvarez Calcaneal osteotomy, correction of L hallux valgus w/arthrodesis of first tartsometatarsal jt, L bunion correction, L gastroc recession Treatment Goals Patient/Caregiver Goals Be able to go up/down ladder cart while carrying heavy objects to stock things, start gardening, be able to get up/ down from the ground indep, be able to go for walks, get a good workout routine for good fitness habits Personal Factors Other Personal Factors That May Effect depression, anxiety, Therapy/Recovery schitzophrenia, hx drug abus PT-OP-C Subjective Start: 12/26/21 17:49 Freq: Status: Active Protocol: Document 03/06/22 14:37 [facility] (Rec: 03/06/22 15:21 [facility] [id number]) OP-PT Subjective Patient Comments Patient Comments pt reports she wore a sleeve starting this afternoon. She got it and it has medication in her. She had to walk a lto today. Sleeve is helpful PT-OP-F Manual Assessment Start: 12/26/21 17:49 Freq: Status: Active Protocol: Document 12/30/21 15:18 [facility] (Rec: 12/30/21 16:[id number] Manual Assessments Soft Tissue Assessment Soft Tissue Mobility Assessment Pt still has some scabbing towards ant aspect of lat scar and med scar Other Manual Assessments Other Manual Assessments 21.1 cm L MT base R 20.9 25.3 cm L malleoli R 24.1 PT-OP-G Mobility & Gait Start: 12/26/21 17:49 Freq: Status: Active Protocol: Document 12/30/21 15:18 [facility] (Rec: 12/30/21 16:[id number] OP Gait Assessment Comments Gait Comments Dec stance time on LLE and no push off LLE, slow gait PT-OP-K Range of Motion Start: 12/26/21 17:49 Freq: Status: Active Protocol: Document 02/24/22 13:40 [facility] (Rec: 02/24/22 18:09 [facility] [id number]) Ankle and Foot Goniometric Range of Motion Ankle and Foot Left Active Dorsiflexion with Knee Flexed 2 Dorsiflexion with Knee Extended 0 Plantarflexion 39 Inversion 5 Eversion 15 Comments n PT-OP-L Special Tests Start: 12/26/21 17:49 Freq: Status: Active Protocol: Document 12/30/21 15:18 [facility] (Rec: 12/30/21 16:31 [facility] [id number]) Special Tests Other Special Tests Special Tests 45 deg R HS tightness SLR, 64 Deg L PT-OP-M Strength Start: 12/26/21 17:49 Freq: Status: Active Protocol: Document 02/24/22 13:40 [facility] (Rec: 02/24/22 18:09 [facility] [id number]) Hip Strength Hip Manual Muscle Testing Right Flexion (L2) 5 Normal Extension (S1) 4 Good Abduction 4 Good External Rotation 4+ Good+ Internal Rotation 4+ Good+ Left Flexion (L2) 4 Good Extension (S1) 4- Good- Abduction 4+ Good+ Adduction 4 Good External Rotation 4 Good Internal Rotation 3+ Fair+ Knee Strength Knee Manual Muscle Testing Right Flexion (S2) 5 Normal Extension (L3) 5 Normal Left Flexion (S2) 5 Normal Extension (L3) 5 Normal Ankle/Foot Strength Ankle and Foot Manual Muscle Testing Right Dorsiflexion (L4) 5 Normal Plantarflexion (S1) 5 Normal Inversion 5 Normal Eversion (S1) 5 Normal Comments 20 heel raises Left Dorsiflexion (L4) 4+ Good+ Plantarflexion (S1) 3- Fair- Inversion 3+ Fair+ Eversion (S1) 4 Good Comments unable to do heel raises PT-OP-Q Treatments Start: 12/26/21 17:49 Freq: Status: Active Protocol: Document 03/06/22 14:37 [facility] (Rec: 03/06/22 15:21 [facility] [id number]) Manual Therapy Treatment Soft Tissue Mobilization calf Body Location L Mobilization Type Myofascial Release Intensity/Depth Moderate scar Body Location lat & post scar & med proximal scar Mobilization Type Myofascial Release,Rolling Intensity/Depth Superficial Body Position Supine plantar fascia Body Location L Mobilization Type Rolling Intensity/Depth Moderate Body Position Supine Joint Mobilizations talus Direction AP FM Body Position Standing tib fib Joint AP FM L tibia & PA fibula FM MTP Joint 1st L Direction distraction & AP Grade II Manual Techniques PROM Type L ankle PF, DF, inversion, eversion gentle Body Position Supine Comments with gentle traction & c/r Neuro Re-Education Treatment Balance Activities bosu Comments 1. standing balance head turns & EC 2. modified SLS on LLE w/R toe on bosu 3. black side squats x8 4. black side circles B x8 PT-OP-R Modalities Start: 12/26/21 17:49 Freq: Status: Active Protocol: Document 02/27/22 14:33 [facility] (Rec: 02/27/22 15:39 [facility] [id number]) Hot Pack/Cold Pack Treatment Ice Massage Location L lateral ankle Patient Position Supine Treatment Duration (minutes) 5 Patient Tolerance Good PT-OP-T Assessment and Plan Start: 12/26/21 17:49 Freq: Status: Active Protocol: Document 03/06/22 14:37 [facility] (Rec: 03/06/22 15:21 [facility] [id number]) Physical Therapy Assessment Goals balance Fdc Goal (LTG) pt will be able to do SLS 20 sec B w/o LOB to show improved stability. 02/24-L only 2 sec LTG Duration 04/01/22 strength Short Term Goal (STG) Pt will be indep w/HEP 02/24-updated to encourage pt to do more at home STG Duration 01/30/22 Assistant Professor Sculpture Goal (LTG) Pt will score at least 5/5 on BLE MMT to show improved strength to allow pt to do typical activities w/o inc pain. 02/24-improved LTG Duration 04/01/22 ROM Short Term Goal (STG) Pt will improve to DF to neutral on L in knee ext position. STG Duration achived 02/24 Fdc Goal (LTG) Pt will have within 5 deg ROM of L ankle to R ankle to improve pt ability to negotiate the community. 02/24-improved LTG Duration 04/01/22 work Short Term Goal (STG) Pt will be able to return to light duty work w/pain no greater than 4/10 02/24-pt went straight to full duty and is noting a lot of pain STG Duration 02/27/22 Assistant Professor Sculpture Goal (LTG) Pt will be able to return to full duty work w/o L foot/ ankle pain greater than 2/10 LTG Duration 04/01/22 gardening Short Term Goal (STG) Pt will be able to get up/down from the ground indep to allow for gardening. STG Duration 02/27/22 Assistant Professor Sculpture Goal (LTG) Pt will be able to do all tasks for gardening w/o inc pain. LTG Duration 03/29/22 LEFS Impairment 23/80 Short Term Goal (STG) Pt will improved LEFS to at least 45/80 to show improved function. STG Duration 02/27/22 Fdc Goal (LTG) Pt will improved LEFS to at least 70/80 to show improved function. LTG Duration 04/01/22 Assessment Summary Assessment Fern was given a lot of encouragement to be doing ROM 3x day and pushing it to progress ROM. Encouraged to stretch calf on breaks and cont to work on strength and balance at home daily. She is slowly improving w/PF andDF but does not tolerate much stretch into inversion/ eversion and is very limited. Balance is still limited and pt requires a lot of cues. Physical Therapy Plan Frequency and Duration Frequency of Treatment 1-2x/week Duration of Treatment 3 months Plan of Care Start Date 12/30/21 Plan of Care End Date 04/01/22 Therapeutic Interventions Therapeutic Interventions Aquatic Therapy,Balance Training,Gait Training,Home Exercise Program,Joint Mobilizations,Manual Therapy, Neuromuscular Re-education, Patient/Caregiver Education, Self-Care/Home Management,Soft Tissue Mobilization,Taping, Therapeutic Activities, Therapeutic Exercises Modalities Cold Pack/Ice Massage,Electric Stimulation,Hot Packs, Infrared Therapy,Ultrasound Next Visit Focus/Plan Next Note Type Treatment Note Next Visit Plan cont to work balance, ankle stability, gait, and ROM; manual for foot mobility
--- NOTE | 2022-03-10 15:20 | PT.OTN ---
Current Diagnoses Hallux valgus (acquired), left foot (03/10/22) Flat foot [pes planus] (acquired), unspecified foot (03/10/22) Other acquired deformities of left foot (03/10/22) Difficulty in walking, not elsewhere classified (03/10/22) Other abnormalities of gait and mobility (03/10/22) Weakness (03/10/22) Physical Therapy Treatment Note PT-OP-A Visit Information Start: 12/26/21 17:49 Freq: Status: Active Protocol: Document 03/10/22 14:32 [facility] (Rec: 03/10/22 15:20 [facility] [id number]) Out-Patient Physical Therapy Visit Information Visit Information Visit Type Treatment Note Visit Note 24 visits in a year Visit Start Time 14:35 Visit Stop Time 15:15 Total Visit Minutes 40 Visit Number 15 Number of LAB TECH Visits 0 PT-OP-B Current Condition Start: 12/26/21 17:49 Freq: Status: Active Protocol: Document 12/30/21 15:18 [facility] (Rec: 12/30/21 16:31 [facility] [id number]) Current Condition History of Current Condition Onset Date Sep 13 sx Current Complaints s/p L foot surgery History of Current Condition Pt reports foot pain all the time since injury jumping on tramp in where she sprained ankle. She was getting really painful to walk so she couldn 't do her duties for work. 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 She sees Dr. Dao tomorrow. Pt has been wearing her post op shoe mostly but is allowed to wear her sneakers but they feel too tight. Pt likes to color, going to [employer] study, gardening, going for walks ( was limited prior to surgery d /t pain). No other history of joint pain. Has not tried much walking. Prior Treatments and Tests surgery Aug-L foot medial calcaneal slide osteotomy w/Alvarez Calcaneal osteotomy, correction of L hallux valgus w/arthrodesis of first tartsometatarsal jt, L bunion correction, L gastroc recession Treatment Goals Patient/Caregiver Goals Be able to go up/down ladder cart while carrying heavy objects to stock things, start gardening, be able to get up/ down from the ground indep, be able to go for walks, get a good workout routine for good fitness habits Personal Factors Other Personal Factors That May Effect depression, anxiety, Therapy/Recovery schitzophrenia, hx drug abus PT-OP-C Subjective Start: 12/26/21 17:49 Freq: Status: Active Protocol: Document 03/10/22 14:32 [facility] (Rec: 03/10/22 15:20 [facility] [id number]) OP-PT Subjective Patient Comments Patient Comments Pt reports oding exercises more often. Has not done SLS PT-OP-F Manual Assessment Start: 12/26/21 17:49 Freq: Status: Active Protocol: Document 12/30/21 15:18 [facility] (Rec: 12/30/21 16:[id number] Manual Assessments Soft Tissue Assessment Soft Tissue Mobility Assessment Pt still has some scabbing towards ant aspect of lat scar and med scar Other Manual Assessments Other Manual Assessments 21.1 cm L MT base R 20.9 25.3 cm L malleoli R 24.1 PT-OP-G Mobility & Gait Start: 12/26/21 17:49 Freq: Status: Active Protocol: Document 12/30/21 15:18 [facility] (Rec: 12/30/21 16:31 [facility] [id number]) OP Gait Assessment Comments Gait Comments Dec stance time on LLE and no push off LLE, slow gait PT-OP-K Range of Motion Start: 12/26/21 17:49 Freq: Status: Active Protocol: Document 02/24/22 13:40 [facility] (Rec: 02/24/22 18:09 [facility] [id number]) Ankle and Foot Goniometric Range of Motion Ankle and Foot Left Active Dorsiflexion with Knee Flexed 2 Dorsiflexion with Knee Extended 0 Plantarflexion 39 Inversion 5 Eversion 15 Comments n PT-OP-L Special Tests Start: 12/26/21 17:49 Freq: Status: Active Protocol: Document 12/30/21 15:18 [facility] (Rec: 12/30/21 16:31 [facility] [id number]) Special Tests Other Special Tests Special Tests 45 deg R HS tightness SLR, 64 Deg L PT-OP-M Strength Start: 12/26/21 17:49 Freq: Status: Active Protocol: Document 02/24/22 13:40 [facility] (Rec: 02/24/22 18:09 [facility] [id number]) Hip Strength Hip Manual Muscle Testing Right Flexion (L2) 5 Normal Extension (S1) 4 Good Abduction 4 Good External Rotation 4+ Good+ Internal Rotation 4+ Good+ Left Flexion (L2) 4 Good Extension (S1) 4- Good- Abduction 4+ Good+ Adduction 4 Good External Rotation 4 Good Internal Rotation 3+ Fair+ Knee Strength Knee Manual Muscle Testing Right Flexion (S2) 5 Normal Extension (L3) 5 Normal Left Flexion (S2) 5 Normal Extension (L3) 5 Normal Ankle/Foot Strength Ankle and Foot Manual Muscle Testing Right Dorsiflexion (L4) 5 Normal Plantarflexion (S1) 5 Normal Inversion 5 Normal Eversion (S1) 5 Normal Comments 20 heel raises Left Dorsiflexion (L4) 4+ Good+ Plantarflexion (S1) 3- Fair- Inversion 3+ Fair+ Eversion (S1) 4 Good Comments unable to do heel raises PT-OP-Q Treatments Start: 12/26/21 17:49 Freq: Status: Active Protocol: Document 03/10/22 14:32 [facility] (Rec: 03/10/22 15:20 [facility] [id number]) Therapeutic Exercises Sitting Exercises ROM Sitting Exercise Name Big toe DF Side left Reps/Minutes 5 Standing Exercises wt shifts Standing Exercise Name focus on shift of wt into LLE and push off LLE Side bilateral Reps/Minutes 10 ea in mirror heel raises Standing Exercise Name hands on wall Side bilateral Reps/Minutes 10 Manual Therapy Treatment Soft Tissue Mobilization calf Body Location L Mobilization Type Myofascial Release Intensity/Depth Moderate scar Body Location lat & post scar & med proximal scar Mobilization Type Myofascial Release,Rolling Intensity/Depth Superficial Body Position Supine plantar fascia Body Location L Mobilization Type Rolling Intensity/Depth Moderate Body Position Supine Joint Mobilizations talus Direction AP FM Body Position Standing tib fib Joint AP FM L tibia & PA fibula FM MTP Joint 1st L Direction distraction & AP Grade II MT Joint 2-5 Direction AP/PA Grade II Neuro Re-Education Treatment Balance Activities SL Details SLS trials L bosu Comments 1. step ups B x8 2. SLS on bosus B rail prn PT-OP-R Modalities Start: 12/26/21 17:49 Freq: Status: Active Protocol: Document 02/27/22 14:33 [facility] (Rec: 02/27/22 15:39 [facility] [id number]) Hot Pack/Cold Pack Treatment Ice Massage Location L lateral ankle Patient Position Supine Treatment Duration (minutes) 5 Patient Tolerance Good PT-OP-T Assessment and Plan Start: 12/26/21 17:49 Freq: Status: Active Protocol: Document 03/10/22 14:32 [facility] (Rec: 03/10/22 15:20 [facility] [id number]) Physical Therapy Assessment Goals balance [employer] Stitcher Goal (LTG) pt will be able to do SLS 20 sec B w/o LOB to show improved stability. 02/24-L only 2 sec LTG Duration 04/01/22 strength Short Term Goal (STG) Pt will be indep w/HEP 02/24-updated to encourage pt to do more at home STG Duration 01/30/22 [employer] St[employer]cher Goal (LTG) Pt will score at least 5/5 on BLE MMT to show improved strength to allow pt to do typical activities w/o inc pain. 02/24-improved LTG Duration 04/01/22 ROM Short Term Goal (STG) Pt will improve to DF to neutral on L in knee ext position. STG Duration achived 02/24 [employer] Stitcher Goal (LTG) Pt will have within 5 deg ROM of L ankle to R ankle to improve pt ability to negotiate the community. 02/24-improved LTG Duration 04/01/22 work Short Term Goal (STG) Pt will be able to return to light duty work w/pain no greater than 4/10 02/24-pt went straight to full duty and is noting a lot of pain STG Duration 02/27/22 Assisted Goal (LTG) Pt will be able to return to full duty work w/o L foot/ ankle pain greater than 2/10 LTG Duration 04/01/22 gardening Short Term Goal (STG) Pt will be able to get up/down from the ground indep to allow for gardening. STG Duration 02/27/22 Assisted Goal (LTG) Pt will be able to do all tasks for gardening w/o inc pain. LTG Duration 03/29/22 LEFS Impairment 23/80 Short Term Goal (STG) Pt will improved LEFS to at least 45/80 to show improved function. STG Duration 02/27/22 [employer]set Stitcher Goal (LTG) Pt will improved LEFS to at least 70/80 to show improved function. LTG Duration 04/01/22 Assessment Summary Assessment Pt cont to struggle with ROM but SLS does look better and balance in general looks improved some. Pt cont to be encouraged to do her exercises often. Physical Therapy Plan Frequency and Duration Frequency of Treatment 1-2x/week Duration of Treatment 3 months Plan of Care Start Date 12/30/21 Plan of Care End Date 04/01/22 Next Visit Focus/Plan Next Note Type Treatment Note Next Visit Plan cont to work balance, ankle stability, gait, and ROM; manual for foot mobility
--- NOTE | 2022-03-20 15:20 | PT.OTN ---
Current Diagnoses Hallux valgus (acquired), left foot (03/20/22) Flat foot [pes planus] (acquired), unspecified foot (03/20/22) Other acquired deformities of left foot (03/20/22) Difficulty in walking, not elsewhere classified (03/20/22) Other abnormalities of gait and mobility (03/20/22) Weakness (03/20/22) Physical Therapy Treatment Note PT-OP-A Visit Information Start: 12/26/21 17:49 Freq: Status: Active Protocol: Document 03/20/22 14:51 [facility] (Rec: 03/20/22 15:20 [facility] [id number]) Out-Patient Physical Therapy Visit Information Visit Information Visit Type Treatment Note Visit Note 24 visits in a year Visit Start Time 14:35 Visit Stop Time 15:15 Total Visit Minutes 40 Visit Number 16 Number of BACTERIOLOGY RESEARCH ASSISTANT Visits 0 PT-OP-B Current Condition Start: 12/26/21 17:49 Freq: Status: Active Protocol: Document 12/30/21 15:18 [facility] (Rec: 12/30/21 16:31 [facility] [id number]) Current Condition History of Current Condition Onset Date Sep 13 sx Current Complaints s/p L foot surgery History of Current Condition Pt reports foot pain all the time since injury jumping on tramp in where she sprained ankle. She was getting really painful to walk so she couldn 't do her duties for work. 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 She sees Dr. Dao tomorrow. Pt has been wearing her post op shoe mostly but is allowed to wear her sneakers but they feel too tight. Pt likes to color, going to [employer] study, gardening, going for walks ( was limited prior to surgery d /t pain). No other history of joint pain. Has not tried much walking. Prior Treatments and Tests surgery Aug-L foot medial calcaneal slide osteotomy w/Alvarez Calcaneal osteotomy, correction of L hallux valgus w/arthrodesis of first tartsometatarsal jt, L bunion correction, L gastroc recession Treatment Goals Patient/Caregiver Goals Be able to go up/down ladder cart while carrying heavy objects to stock things, start gardening, be able to get up/ down from the ground indep, be able to go for walks, get a good workout routine for good fitness habits Personal Factors Other Personal Factors That May Effect depression, anxiety, Therapy/Recovery schitzophrenia, hx drug abus PT-OP-C Subjective Start: 12/26/21 17:49 Freq: Status: Active Protocol: Document 03/20/22 14:51 [facility] (Rec: 03/20/22 15:20 [facility] [id number]) OP-PT Subjective Patient Comments Patient Comments pt reports sore from work. stretching daily. balance on days off PT-OP-F Manual Assessment Start: 12/26/21 17:49 Freq: Status: Active Protocol: Document 12/30/21 15:18 [facility] ([facility] 12[facility]30[facility]21 [id number] Manual Assessments Soft Tissue Assessment Soft Tissue Mobility Assessment Pt still has some scabbing towards ant aspect of lat scar and med scar Other Manual Assessments Other Manual Assessments 21.1 cm L MT base R 20.9 25.3 cm L malleoli R 24.1 PT-OP-G Mobility & Gait Start: 12/26/21 17:49 Freq: Status: Active Protocol: Document 12/30/21 15:18 [facility] (Rec: 12/30/21 16:31 [facility] [id number]) OP Gait Assessment Comments Gait Comments Dec stance time on LLE and no push off LLE, slow gait PT-OP-K Range of Motion Start: 12/26/21 17:49 Freq: Status: Active Protocol: Document 02/24/22 13:40 [facility] (Rec: 02/24/22 18:09 [facility] [id number]) Ankle and Foot Goniometric Range of Motion Ankle and Foot Left Active Dorsiflexion with Knee Flexed 2 Dorsiflexion with Knee Extended 0 Plantarflexion 39 Inversion 5 Eversion 15 Comments n PT-OP-L Special Tests Start: 12/26/21 17:49 Freq: Status: Active Protocol: Document 12/30/21 15:18 [facility] (Rec: 12/30/21 16:31 [facility] [id number]) Special Tests Other Special Tests Special Tests 45 deg R HS tightness SLR, 64 Deg L PT-OP-M Strength Start: 12/26/21 17:49 Freq: Status: Active Protocol: Document 02/24/22 13:40 [facility] (Rec: 02/24/22 18:09 [facility] [id number]) Hip Strength Hip Manual Muscle Testing Right Flexion (L2) 5 Normal Extension (S1) 4 Good Abduction 4 Good External Rotation 4+ Good+ Internal Rotation 4+ Good+ Left Flexion (L2) 4 Good Extension (S1) 4- Good- Abduction 4+ Good+ Adduction 4 Good External Rotation 4 Good Internal Rotation 3+ Fair+ Knee Strength Knee Manual Muscle Testing Right Flexion (S2) 5 Normal Extension (L3) 5 Normal Left Flexion (S2) 5 Normal Extension (L3) 5 Normal Ankle/Foot Strength Ankle and Foot Manual Muscle Testing Right Dorsiflexion (L4) 5 Normal Plantarflexion (S1) 5 Normal Inversion 5 Normal Eversion (S1) 5 Normal Comments 20 heel raises Left Dorsiflexion (L4) 4+ Good+ Plantarflexion (S1) 3- Fair- Inversion 3+ Fair+ Eversion (S1) 4 Good Comments unable to do heel raises PT-OP-Q Treatments Start: 12/26/21 17:49 Freq: Status: Active Protocol: Document 03/20/22 14:51 [facility] (Rec: 03/20/22 15:20 [facility] [id number]) Therapeutic Exercises Standing Exercises wt shifts Standing Exercise Name focus on shift of wt into LLE and push off LLE Side bilateral Reps/Minutes 15 ea in mirror lunges Standing Exercise Name for big toe stretch Side left Reps/Minutes 5 sec x4 Manual Therapy Treatment Soft Tissue Mobilization scar Body Location lat & post scar & med proximal scar Mobilization Type Myofascial Release,Rolling Intensity/Depth Superficial Body Position Supine plantar fascia Body Location L Mobilization Type Rolling Intensity/Depth Moderate Body Position Supine Joint Mobilizations talus Direction distraction FM Body Position Standing MTP Joint 1st L Direction distraction & AP Grade II MT Joint 2-5 Direction AP/PA Grade II Manual Techniques PROM Type L ankle PF, DF, inversion, eversion gentle Body Position Supine Comments with gentle traction & c/r Neuro Re-Education Treatment Balance Activities balance board Details fwd/back & side/side wt shifts Reps/Duration 15 Comments cues for keeping L foot down SL Details SLS trials L bosu Comments black side circles B x10 PT-OP-R Modalities Start: 12/26/21 17:49 Freq: Status: Active Protocol: Document 02/27/22 14:33 [facility] (Rec: 02/27/22 15:39 [facility] [id number]) Hot Pack/Cold Pack Treatment Ice Massage Location L lateral ankle Patient Position Supine Treatment Duration (minutes) 5 Patient Tolerance Good PT-OP-T Assessment and Plan Start: 12/26/21 17:49 Freq: Status: Active Protocol: Document 03/20/22 14:51 [facility] (Rec: 03/20/22 15:20 [facility] [id number]) Physical Therapy Assessment Goals balance Snf Goal (LTG) pt will be able to do SLS 20 sec B w/o LOB to show improved stability. 02/24-L only 2 sec LTG Duration 04/01/22 strength Short Term Goal (STG) Pt will be indep w/HEP 02/24-updated to encourage pt to do more at home STG Duration 01/30/22 Snf Goal (LTG) Pt will score at least 5/5 on BLE MMT to show improved strength to allow pt to do typical activities w/o inc pain. 02/24-improved LTG Duration 04/01/22 ROM Short Term Goal (STG) Pt will improve to DF to neutral on L in knee ext position. STG Duration achived 02/24 Snf Goal (LTG) Pt will have within 5 deg ROM of L ankle to R ankle to improve pt ability to negotiate the community. 02/24-improved LTG Duration 04/01/22 work Short Term Goal (STG) Pt will be able to return to light duty work w/pain no greater than 4/10 02/24-pt went straight to full duty and is noting a lot of pain STG Duration 02/27/22 Him Clerk Goal (LTG) Pt will be able to return to full duty work w/o L foot/ ankle pain greater than 2/10 LTG Duration 04/01/22 gardening Short Term Goal (STG) Pt will be able to get up/down from the ground indep to allow for gardening. STG Duration 02/27/22 Snf Goal (LTG) Pt will be able to do all tasks for gardening w/o inc pain. LTG Duration 03/29/22 LEFS Impairment 23/80 Short Term Goal (STG) Pt will improved LEFS to at least 45/80 to show improved function. STG Duration 02/27/22 Snf Goal (LTG) Pt will improved LEFS to at least 70/80 to show improved function. LTG Duration 04/01/22 Assessment Summary Assessment pt is limited in tolerance to manual and notes soreness w/ both manual and exercise. Cont to work on cues for wt shift into full foot and trying to cue for toe off but pt is resistant. She cotn to have scar immobility and is encouraged to work on this at home herself also. Her ROM still remains very limited. Physical Therapy Plan Frequency and Duration Frequency of Treatment 1-2x/week Duration of Treatment 3 months Plan of Care Start Date 12/30/21 Plan of Care End Date 04/01/22 Therapeutic Interventions Therapeutic Interventions Aquatic Therapy,Balance Training,Gait Training,Home Exercise Program,Joint Mobilizations,Manual Therapy, Neuromuscular Re-education, Patient/Caregiver Education, Self-Care/Home Management,Soft Tissue Mobilization,Taping, Therapeutic Activities, Therapeutic Exercises Modalities Cold Pack/Ice Massage,Electric Stimulation,Hot Packs, Infrared Therapy,Ultrasound Next Visit Focus/Plan Next Note Type Progress Note Next Visit Plan cont to work balance, ankle stability, gait, and ROM; manual for foot mobility
--- NOTE | 2022-03-27 16:02 | PT.OTN ---
Current Diagnoses Hallux valgus (acquired), left foot (03/27/22) Flat foot [pes planus] (acquired), unspecified foot (03/27/22) Other acquired deformities of left foot (03/27/22) Difficulty in walking, not elsewhere classified (03/27/22) Other abnormalities of gait and mobility (03/27/22) Weakness (03/27/22) Physical Therapy Treatment Note PT-OP-A Visit Information Start: 12/26/21 17:49 Freq: Status: Active Protocol: Document 03/27/22 13:47 [facility] (Rec: 03/27/22 15:21 [facility] [id number]) Out-Patient Physical Therapy Visit Information Visit Information Visit Type Progress Note Visit Note 24 visits in a year Visit Start Time 14:35 Visit Stop Time 15:14 Total Visit Minutes 39 Visit Number 17 Number of TANK CARPENTER Visits 0 PT-OP-B Current Condition Start: 12/26/21 17:49 Freq: Status: Active Protocol: Document 12/30/21 15:18 [facility] (Rec: 12/30/21 16:31 [facility] [id number]) Current Condition History of Current Condition Onset Date Sep 13 sx Current Complaints s/p L foot surgery History of Current Condition Pt reports foot pain all the time since injury jumping on tramp in where she sprained ankle. She was getting really painful to walk so she couldn 't do her duties for work. 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 She sees Dr. Dao tomorrow. Pt has been wearing her post op shoe mostly but is allowed to wear her sneakers but they feel too tight. Pt likes to color, going to [employer] study, gardening, going for walks ( was limited prior to surgery d /t pain). No other history of joint pain. Has not tried much walking. Prior Treatments and Tests surgery Aug-L foot medial calcaneal slide osteotomy w/Alvarez Calcaneal osteotomy, correction of L hallux valgus w/arthrodesis of first tartsometatarsal jt, L bunion correction, L gastroc recession Treatment Goals Patient/Caregiver Goals Be able to go up/down ladder cart while carrying heavy objects to stock things, start gardening, be able to get up/ down from the ground indep, be able to go for walks, get a good workout routine for good fitness habits Personal Factors Other Personal Factors That May Effect depression, anxiety, Therapy/Recovery schitzophrenia, hx drug abus PT-OP-C Subjective Start: 12/26/21 17:49 Freq: Status: Active Protocol: Document 03/27/22 13:47 [facility] (Rec: 03/27/22 15:21 [facility] [id number]) OP-PT Subjective Patient Comments Patient Comments pt reprots still significant pain w/work PT-OP-F Manual Assessment Start: 12/26/21 17:49 Freq: Status: Active Protocol: Document 12/30/21 15:18 [facility] (Rec: 12/30/21 16:31 [facility] [id number]) Manual Assessments Soft Tissue Assessment Soft Tissue Mobility Assessment Pt still has some scabbing towards ant aspect of lat scar and med scar Other Manual Assessments Other Manual Assessments 21.1 cm L MT base R 20.9 25.3 cm L malleoli R 24.1 PT-OP-G Mobility & Gait Start: 12/26/21 17:49 Freq: Status: Active Protocol: Document 12/30/21 15:18 [facility] (Rec: 12/30/21 16:31 [facility] [id number]) OP Gait Assessment Comments Gait Comments Dec stance time on LLE and no push off LLE, slow gait PT-OP-K Range of Motion Start: 12/26/21 17:49 Freq: Status: Active Protocol: Document 03/27/22 13:47 [facility] (Rec: 03/27/22 15:21 [facility] [id number]) Ankle and Foot Goniometric Range of Motion Ankle and Foot Left Active Dorsiflexion with Knee Flexed 5 Dorsiflexion with Knee Extended 5 Plantarflexion 30 Inversion 5 Eversion 10 PT-OP-L Special Tests Start: 12/26/21 17:49 Freq: Status: Active Protocol: Document 12/30/21 15:18 [facility] (Rec: 12/30/21 16:31 [facility] [id number]) Special Tests Other Special Tests Special Tests 45 deg R HS tightness SLR, 64 Deg L PT-OP-M Strength Start: 12/26/21 17:49 Freq: Status: Active Protocol: Document 03/27/22 13:47 [facility] (Rec: 03/27/22 15:21 [facility] [id number]) Hip Strength Hip Manual Muscle Testing Right Flexion (L2) 5 Normal Extension (S1) 4 Good Abduction 4 Good External Rotation 5 Normal Internal Rotation 5 Normal Left Flexion (L2) 4+ Good+ Extension (S1) 4 Good Abduction 4+ Good+ Adduction 4 Good External Rotation 4+ Good+ Internal Rotation 4- Good- Knee Strength Knee Manual Muscle Testing Right Flexion (S2) 5 Normal Extension (L3) 5 Normal Left Flexion (S2) 5 Normal Extension (L3) 5 Normal Ankle/Foot Strength Ankle and Foot Manual Muscle Testing Right Dorsiflexion (L4) 5 Normal Plantarflexion (S1) 5 Normal Inversion 5 Normal Eversion (S1) 5 Normal Comments 20 heel raises Left Dorsiflexion (L4) 4+ Good+ Plantarflexion (S1) 3- Fair- Inversion 3+ Fair+ Eversion (S1) 4 Good Comments unable to do heel raises PT-OP-Q Treatments Start: 12/26/21 17:49 Freq: Status: Active Protocol: Document 03/27/22 13:47 [facility] (Rec: 03/27/22 15:21 [facility] [id number]) Therapeutic Exercises Standing Exercises DF Standing Exercise Name back on wall Side bilateral Reps/Minutes 20 wt shifts Standing Exercise Name focus on shift of wt into LLE and push off LLE Side bilateral Reps/Minutes 10 ea in mirror lunges Standing Exercise Name for big toe stretch Side left Reps/Minutes 5 sec x4 PT-OP-R Modalities Start: 12/26/21 17:49 Freq: Status: Active Protocol: Document 02/27/22 14:33 [facility] (Rec: 02/27/22 15:39 [facility] [id number]) Hot Pack/Cold Pack Treatment Ice Massage Location L lateral ankle Patient Position Supine Treatment Duration (minutes) 5 Patient Tolerance Good PT-OP-T Assessment and Plan Start: 12/26/21 17:49 Freq: Status: Active Protocol: Document 03/27/22 13:47 [facility] (Rec: 03/27/22 15:21 [facility] [id number]) Physical Therapy Assessment Goals balance Alf Goal (LTG) pt will be able to do SLS 20 sec B w/o LOB to show improved stability. 02/24-L only 2 sec 03/27-no change on L; achieved on R LTG Duration 06/27 strength Short Term Goal (STG) Pt will be indep w/HEP 02/24-updated to encourage pt to do more at home 03/27-cont to encourage inc frequency STG Duration 01/30/22 Alf Goal (LTG) Pt will score at least 5/5 on BLE MMT to show improved strength to allow pt to do typical activities w/o inc pain. 02/24-improved 03/27-improving LTG Duration 06/27 ROM Short Term Goal (STG) Pt will improve to DF to neutral on L in knee ext position. STG Duration achived 02/24 Tailer Out Goal (LTG) Pt will have within 5 deg ROM of L ankle to R ankle to improve pt ability to negotiate the community. 02/24-improved LTG Duration achieved 03/27 work Short Term Goal (STG) Pt will be able to return to light duty work w/pain no greater than 4/10 02/24-pt went straight to full duty and is noting a lot of pain 03/27-05/10 w/work STG Duration 04/27 Alf Goal (LTG) Pt will be able to return to full duty work w/o L foot/ ankle pain greater than 2/10 LTG Duration 05/28 gardening Short Term Goal (STG) Pt will be able to get up/down from the ground indep to allow for gardening. STG Duration achieved but feels it is difficult Tailer Out Goal (LTG) Pt will be able to do all tasks for gardening w/o inc pain. 03/27-some pain LTG Duration 06/27 LEFS Impairment 23/80 Short Term Goal (STG) Pt will improved LEFS to at least 45/80 to show improved function. STG Duration achieved Tailer Out Goal (LTG) Pt will improved LEFS to at least 70/80 to show improved function. 03/27- LTG Duration 04/01/22 Assessment Summary Assessment Pt is making slow progress w/ PT and is still very limited in ROM and strength and balance on L side. She has been doing some exercises but is limite don work days d/t pain. She has been encouraged to discuss w/MD difficutly w/ return to work but she feels she needs to work for the money. Stressed w/pt improtance of telling MD difficulty w/return to work. Pt to cont PT to work on strength, balance, dec pain and ROM. Physical Therapy Plan Frequency and Duration Frequency of Treatment 1-2x/week Duration of Treatment 3 months Plan of Care Start Date 03/27/22 Plan of Care End Date 06/27/22 Therapeutic Interventions Therapeutic Interventions Aquatic Therapy,Balance Training,Gait Training,Home Exercise Program,Joint Mobilizations,Manual Therapy, Neuromuscular Re-education, Patient/Caregiver Education, Self-Care/Home Management,Soft Tissue Mobilization,Taping, Therapeutic Activities, Therapeutic Exercises Modalities Cold Pack/Ice Massage,Electric Stimulation,Hot Packs, Infrared Therapy,Ultrasound Next Visit Focus/Plan Next Note Type Treatment Note Next Visit Plan cont to work balance, ankle stability, gait, and ROM; manual for foot mobility
--- NOTE | 2022-03-27 16:03 | PT.OPPOC ---
Physical, Occupational & Speech Therapy At [facility] Current Diagnoses Hallux valgus (acquired), left foot (03/27/22) Flat foot [pes planus] (acquired), unspecified foot (03/27/22) Other acquired deformities of left foot (03/27/22) Difficulty in walking, not elsewhere classified (03/27/22) Other abnormalities of gait and mobility (03/27/22) Weakness (03/27/22) Visit Care Team Role Provider Type Milton Cuevas MD Family Provider Non-Staff Specialty: Family Practice Address: [address] [place] [address], [address], [place], [address] Email: Pipo Whyte DPM Attending Provider Non-Staff Primary Care Provider Referring Provider Specialty: Podiatry Address: [address] [place] [address], [phone] Email: Plan Of Care PT-OP-T Assessment and Plan Start: 12/26/21 17:49 Freq: Status: Active Protocol: Document 03/27/22 13:47 [facility] (Rec: 03/27/22 15:21 [facility] [id number]) Physical Therapy Assessment Goals balance Assisted Goal (LTG) pt will be able to do SLS 20 sec B w/o LOB to show improved stability. 02/24-L only 2 sec 03/27-no change on L; achieved on R LTG Duration 06/27 strength Short Term Goal (STG) Pt will be indep w/HEP 02/24-updated to encourage pt to do more at home 03/27-cont to encourage inc frequency STG Duration 01/30/22 First Aid Teacher Goal (LTG) Pt will score at least 5/5 on BLE MMT to show improved strength to allow pt to do typical activities w/o inc pain. 02/24-improved 03/27-improving LTG Duration 06/27 ROM Short Term Goal (STG) Pt will improve to DF to neutral on L in knee ext position. STG Duration achived 02/24 Assisted Goal (LTG) Pt will have within 5 deg ROM of L ankle to R ankle to improve pt ability to negotiate the community. 02/24-improved LTG Duration achieved 03/27 work Short Term Goal (STG) Pt will be able to return to light duty work w/pain no greater than 4/10 02/24-pt went straight to full duty and is noting a lot of pain 03/27-05/10 w/work STG Duration 04/27 First Aid Teacher Goal (LTG) Pt will be able to return to full duty work w/o L foot/ ankle pain greater than 2/10 LTG Duration 05/28 gardening Short Term Goal (STG) Pt will be able to get up/down from the ground indep to allow for gardening. STG Duration achieved but feels it is difficult First Aid Teacher Goal (LTG) Pt will be able to do all tasks for gardening w/o inc pain. 03/27-some pain LTG Duration 06/27 LEFS Impairment 23/80 Short Term Goal (STG) Pt will improved LEFS to at least 45/80 to show improved function. STG Duration achieved Assisted Goal (LTG) Pt will improved LEFS to at least 70/80 to show improved function. 03/27- LTG Duration 04/01/22 Assessment Summary Assessment Pt is making slow progress w/ PT and is still very limited in ROM and strength and balance on L side. She has been doing some exercises but is limite don work days d/t pain. She has been encouraged to discuss w/MD difficutly w/ return to work but she feels she needs to work for the money. Stressed w/pt improtance of telling MD difficulty w/return to work. Pt to cont PT to work on strength, balance, dec pain and ROM. Physical Therapy Plan Frequency and Duration Frequency of Treatment 1-2x/week Duration of Treatment 3 months Plan of Care Start Date 03/27/22 Plan of Care End Date 06/27/22 Therapeutic Interventions Therapeutic Interventions Aquatic Therapy,Balance Training,Gait Training,Home Exercise Program,Joint Mobilizations,Manual Therapy, Neuromuscular Re-education, Patient/Caregiver Education, Self-Care/Home Management,Soft Tissue Mobilization,Taping, Therapeutic Activities, Therapeutic Exercises Modalities Cold Pack/Ice Massage,Electric Stimulation,Hot Packs, Infrared Therapy,Ultrasound Next Visit Focus/Plan Next Note Type Treatment Note Next Visit Plan cont to work balance, ankle stability, gait, and ROM; manual for foot mobility Plan of Care Dates Plan of Care Start Date 03/27/22 Plan of Care End Date 06/27/22 Electronically Signed by: Bruna Sheikh, PT 03/27/22 8698 If you are in agreement with this Plan of Care, please return a signed and dated copy. I have reviewed this Plan of Care and certify that the skilled therapy services above are required to meet the patient?s needs. Physician Signature Date Printed Name and Credentials Clinical Instructor Signature Printed Name and Credentials
--- NOTE | 2022-04-29 12:06 | PT.OTN ---
Current Diagnoses Hallux valgus (acquired), left foot (04/29/22) Flat foot [pes planus] (acquired), unspecified foot (04/29/22) Other acquired deformities of left foot (04/29/22) Difficulty in walking, not elsewhere classified (04/29/22) Other abnormalities of gait and mobility (04/29/22) Weakness (04/29/22) Physical Therapy Treatment Note PT-OP-A Visit Information Start: 12/26/21 17:49 Freq: Status: Active Protocol: Document 04/29/22 11:25 [facility] (Rec: 04/29/22 12:06 [facility] [id number]) Out-Patient Physical Therapy Visit Information Visit Information Visit Type Treatment Note Visit Note 24 visits in a year Visit Start Time 11:21 Visit Stop Time 12:00 Total Visit Minutes 39 Visit Number 18 Number of BOTTLE HOUSE CLEANERS SUPERVISOR Visits 0 PT-OP-B Current Condition Start: 12/26/21 17:49 Freq: Status: Active Protocol: Document 12/30/21 15:18 [facility] (Rec: 12/30/21 16:31 [facility] [id number]) Current Condition History of Current Condition Onset Date Sep 13 sx Current Complaints s/p L foot surgery History of Current Condition Pt reports foot pain all the time since injury jumping on tramp in where she sprained ankle. She was getting really painful to walk so she couldn 't do her duties for work. 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 She sees Dr. Dao tomorrow. Pt has been wearing her post op shoe mostly but is allowed to wear her sneakers but they feel too tight. Pt likes to color, going to [place] study, gardening, going for walks ( was limited prior to surgery d /t pain). No other history of joint pain. Has not tried much walking. Prior Treatments and Tests surgery Aug-L foot medial calcaneal slide osteotomy w/Alvarez Calcaneal osteotomy, correction of L hallux valgus w/arthrodesis of first tartsometatarsal jt, L bunion correction, L gastroc recession Treatment Goals Patient/Caregiver Goals Be able to go up/down ladder cart while carrying heavy objects to stock things, start gardening, be able to get up/ down from the ground indep, be able to go for walks, get a good workout routine for good fitness habits Personal Factors Other Personal Factors That May Effect depression, anxiety, Therapy/Recovery schitzophrenia, hx drug abus PT-OP-C Subjective Start: 12/26/21 17:49 Freq: Status: Active Protocol: Document 04/29/22 11:25 [facility] (Rec: 04/29/22 12:06 [facility] [id number]) OP-PT Subjective Patient Comments Patient Comments pt reports she saw who was happy w/her progress. Pt reports he expects pain for abotu a year PT-OP-F Manual Assessment Start: 12/26/21 17:49 Freq: Status: Active Protocol: Document 12/30/21 15:18 [facility] (Rec: 12/30/21 16:31 [facility] [id number]) Manual Assessments Soft Tissue Assessment Soft Tissue Mobility Assessment Pt still has some scabbing towards ant aspect of lat scar and med scar Other Manual Assessments Other Manual Assessments 21.1 cm L MT base R 20.9 25.3 cm L malleoli R 24.1 PT-OP-G Mobility & Gait Start: 12/26/21 17:49 Freq: Status: Active Protocol: Document 12/30/21 15:18 [facility] (Rec: 12/30/21 16:31 [facility] [id number]) OP Gait Assessment Comments Gait Comments Dec stance time on LLE and no push off LLE, slow gait PT-OP-K Range of Motion Start: 12/26/21 17:49 Freq: Status: Active Protocol: Document 03/27/22 13:47 [facility] (Rec: 03/27/22 15:21 [facility] [id number]) Ankle and Foot Goniometric Range of Motion Ankle and Foot Left Active Dorsiflexion with Knee Flexed 5 Dorsiflexion with Knee Extended 5 Plantarflexion 30 Inversion 5 Eversion 10 PT-OP-L Special Tests Start: 12/26/21 17:49 Freq: Status: Active Protocol: Document 12/30/21 15:18 [facility] (Rec: 12/30/21 16:31 [facility] [id number]) Special Tests Other Special Tests Special Tests 45 deg R HS tightness SLR, 64 Deg L PT-OP-M Strength Start: 12/26/21 17:49 Freq: Status: Active Protocol: Document 03/27/22 13:47 [facility] (Rec: 03/27/22 15:21 [facility] [id number]) Hip Strength Hip Manual Muscle Testing Right Flexion (L2) 5 Normal Extension (S1) 4 Good Abduction 4 Good External Rotation 5 Normal Internal Rotation 5 Normal Left Flexion (L2) 4+ Good+ Extension (S1) 4 Good Abduction 4+ Good+ Adduction 4 Good External Rotation 4+ Good+ Internal Rotation 4- Good- Knee Strength Knee Manual Muscle Testing Right Flexion (S2) 5 Normal Extension (L3) 5 Normal Left Flexion (S2) 5 Normal Extension (L3) 5 Normal Ankle/Foot Strength Ankle and Foot Manual Muscle Testing Right Dorsiflexion (L4) 5 Normal Plantarflexion (S1) 5 Normal Inversion 5 Normal Eversion (S1) 5 Normal Comments 20 heel raises Left Dorsiflexion (L4) 4+ Good+ Plantarflexion (S1) 3- Fair- Inversion 3+ Fair+ Eversion (S1) 4 Good Comments unable to do heel raises PT-OP-Q Treatments Start: 12/26/21 17:49 Freq: Status: Active Protocol: Document 04/29/22 11:25 [facility] (Rec: 04/29/22 12:06 [facility] [id number]) Therapeutic Exercises Sitting Exercises ROM Sitting Exercise Name circles Side bilateral Reps/Minutes 15 Standing Exercises arch lift Side bilateral Reps/Minutes 10 DF Standing Exercise Name back on wall Side bilateral Reps/Minutes 20 stretch Standing Exercise Name 1.gastroc Side left Reps/Minutes 30 sec ea heel raises Side bilateral Reps/Minutes 8 on step, 10 on ground, 10 on ground w/10# Manual Therapy Treatment Soft Tissue Mobilization scar Body Location lat & post scar & med proximal scar Mobilization Type Myofascial Release,Rolling Intensity/Depth Superficial Body Position Supine plantar fascia Body Location L Mobilization Type Rolling Intensity/Depth Moderate Body Position Supine Joint Mobilizations tib fib Joint AP FM L tibia MTP Joint 1st L Direction distraction & AP Grade II Manual Techniques PROM Type L ankle PF, DF, inversion, eversion gentle Body Position Supine Comments with gentle traction & c/r Neuro Re-Education Treatment Balance Activities Tandem Details tandem stance trials B SL Details SLS trials L bosu Comments 1. blue side balance 2. blue side marches x12 B 3. blue side squats x15 PT-OP-R Modalities Start: 12/26/21 17:49 Freq: Status: Active Protocol: Document 02/27/22 14:33 [facility] (Rec: 02/27/22 15:39 MA [id number]) Hot Pack/Cold Pack Treatment Ice Massage Location L lateral ankle Patient Position Supine Treatment Duration (minutes) 5 Patient Tolerance Good PT-OP-T Assessment and Plan Start: 12/26/21 17:49 Freq: Status: Active Protocol: Document 04/29/22 11:25 [facility] (Rec: 04/29/22 12:06 [facility] [id number]) Physical Therapy Assessment Goals balance Taximeter Repairer Goal (LTG) pt will be able to do SLS 20 sec B w/o LOB to show improved stability. 02/24-L only 2 sec 03/27-no change on L; achieved on R LTG Duration 06/27 strength Short Term Goal (STG) Pt will be indep w/HEP 02/24-updated to encourage pt to do more at home 03/27-cont to encourage inc frequency STG Duration 01/30/22 Taximeter Repairer Goal (LTG) Pt will score at least 5/5 on BLE MMT to show improved strength to allow pt to do typical activities w/o inc pain. 02/24-improved 03/27-improving LTG Duration 06/27 ROM Short Term Goal (STG) Pt will improve to DF to neutral on L in knee ext position. STG Duration achived 02/24 Taximeter Repairer Goal (LTG) Pt will have within 5 deg ROM of L ankle to R ankle to improve pt ability to negotiate the community. 02/24-improved LTG Duration achieved 03/27 work Short Term Goal (STG) Pt will be able to return to light duty work w/pain no greater than 4/10 02/24-pt went straight to full duty and is noting a lot of pain 03/27-05/10 w/work STG Duration 04/27 Shelter Goal (LTG) Pt will be able to return to full duty work w/o L foot/ ankle pain greater than 2/10 LTG Duration 05/28 gardening Short Term Goal (STG) Pt will be able to get up/down from the ground indep to allow for gardening. STG Duration achieved but feels it is difficult Shelter Goal (LTG) Pt will be able to do all tasks for gardening w/o inc pain. 03/27-some pain LTG Duration 06/27 LEFS Impairment 23/80 Short Term Goal (STG) Pt will improved LEFS to at least 45/80 to show improved function. STG Duration achieved Taximeter Repairer Goal (LTG) Pt will improved LEFS to at least 70/80 to show improved function. 03/27- LTG Duration 04/01/22 Assessment Summary Assessment Pt's HEP was adjusted and discussed w/pt ways to add it into her day. Advanced some activities but she is still ilmited by pain. [place] still very difficutl Physical Therapy Plan Frequency and Duration Frequency of Treatment 1-2x/week Duration of Treatment 3 months Plan of Care Start Date 03/27/22 Plan of Care End Date 06/27/22 Next Visit Focus/Plan Next Note Type Treatment Note Next Visit Plan review HEP; cont to advance balance, manualf or foot mobility
--- NOTE | 2022-05-07 15:17 | PT.OTN ---
Current Diagnoses Hallux valgus (acquired), left foot (05/07/22) Flat foot [pes planus] (acquired), unspecified foot (05/07/22) Other acquired deformities of left foot (05/07/22) Difficulty in walking, not elsewhere classified (05/07/22) Other abnormalities of gait and mobility (05/07/22) Weakness (05/07/22) Physical Therapy Treatment Note PT-OP-A Visit Information Start: 12/26/21 17:49 Freq: Status: Active Protocol: Document 05/07/22 14:47 [facility] (Rec: 05/07/22 15:16 [facility] [id number]) Out-Patient Physical Therapy Visit Information Visit Information Visit Type Treatment Note Visit Note 24 visits in a year Visit Start Time 14:31 Visit Stop Time 15:13 Total Visit Minutes 42 Visit Number 19 Number of CARGO HANDLER Visits 0 PT-OP-B Current Condition Start: 12/26/21 17:49 Freq: Status: Active Protocol: Document 12/30/21 15:18 [facility] (Rec: 12/30/21 16:31 [facility] [id number]) Current Condition History of Current Condition Onset Date Sep 13 sx Current Complaints s/p L foot surgery History of Current Condition Pt reports foot pain all the time since injury jumping on tramp in where she sprained ankle. She was getting really painful to walk so she couldn 't do her duties for work. 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 She sees Dr. Dao tomorrow. Pt has been wearing her post op shoe mostly but is allowed to wear her sneakers but they feel too tight. Pt likes to color, going to [employer] study, gardening, going for walks ( was limited prior to surgery d /t pain). No other history of joint pain. Has not tried much walking. Prior Treatments and Tests surgery Aug-L foot medial calcaneal slide osteotomy w/Alvarez Calcaneal osteotomy, correction of L hallux valgus w/arthrodesis of first tartsometatarsal jt, L bunion correction, L gastroc recession Treatment Goals Patient/Caregiver Goals Be able to go up/down ladder cart while carrying heavy objects to stock things, start gardening, be able to get up/ down from the ground indep, be able to go for walks, get a good workout routine for good fitness habits Personal Factors Other Personal Factors That May Effect depression, anxiety, Therapy/Recovery schitzophrenia, hx drug abus PT-OP-C Subjective Start: 12/26/21 17:49 Freq: Status: Active Protocol: Document 05/07/22 14:47 [facility] (Rec: 05/07/22 15:16 [facility] [id number]) OP-PT Subjective Patient Comments Patient Comments Pt reports doing some of her exercises at home 3x since last session. Has not tried doing any at work. PT-OP-F Manual Assessment Start: 12/26/21 17:49 Freq: Status: Active Protocol: Document 12/30/21 15:18 [facility] (Rec: 12/30/21 16:31 [facility] [id number]) Manual Assessments Soft Tissue Assessment Soft Tissue Mobility Assessment Pt still has some scabbing towards ant aspect of lat scar and med scar Other Manual Assessments Other Manual Assessments 21.1 cm L MT base R 20.9 25.3 cm L malleoli R 24.1 PT-OP-G Mobility & Gait Start: 12/26/21 17:49 Freq: Status: Active Protocol: Document 12/30/21 15:18 [facility] (Rec: 12/30/21 16:31 [facility] [id number]) OP Gait Assessment Comments Gait Comments Dec stance time on LLE and no push off LLE, slow gait PT-OP-K Range of Motion Start: 12/26/21 17:49 Freq: Status: Active Protocol: Document 03/27/22 13:47 [facility] (Rec: 03/27/22 15:21 [facility] [id number]) Ankle and Foot Goniometric Range of Motion Ankle and Foot Left Active Dorsiflexion with Knee Flexed 5 Dorsiflexion with Knee Extended 5 Plantarflexion 30 Inversion 5 Eversion 10 PT-OP-L Special Tests Start: 12/26/21 17:49 Freq: Status: Active Protocol: Document 12/30/21 15:18 [facility] (Rec: 12/30/21 16:31 [facility] [id number]) Special Tests Other Special Tests Special Tests 45 deg R HS tightness SLR, 64 Deg L PT-OP-M Strength Start: 12/26/21 17:49 Freq: Status: Active Protocol: Document 03/27/22 13:47 [facility] (Rec: 03/27/22 15:21 [facility] [id number]) Hip Strength Hip Manual Muscle Testing Right Flexion (L2) 5 Normal Extension (S1) 4 Good Abduction 4 Good External Rotation 5 Normal Internal Rotation 5 Normal Left Flexion (L2) 4+ Good+ Extension (S1) 4 Good Abduction 4+ Good+ Adduction 4 Good External Rotation 4+ Good+ Internal Rotation 4- Good- Knee Strength Knee Manual Muscle Testing Right Flexion (S2) 5 Normal Extension (L3) 5 Normal Left Flexion (S2) 5 Normal Extension (L3) 5 Normal Ankle/Foot Strength Ankle and Foot Manual Muscle Testing Right Dorsiflexion (L4) 5 Normal Plantarflexion (S1) 5 Normal Inversion 5 Normal Eversion (S1) 5 Normal Comments 20 heel raises Left Dorsiflexion (L4) 4+ Good+ Plantarflexion (S1) 3- Fair- Inversion 3+ Fair+ Eversion (S1) 4 Good Comments unable to do heel raises PT-OP-Q Treatments Start: 12/26/21 17:49 Freq: Status: Active Protocol: Document 05/07/22 14:47 [facility] (Rec: 05/07/22 15:16 [facility] [id number]) Therapeutic Exercises Sitting Exercises ROM Sitting Exercise Name circles Side bilateral Reps/Minutes 8 ea Standing Exercises arch lift Side bilateral Reps/Minutes 10 DF Standing Exercise Name back on wall Side bilateral Reps/Minutes 20 stretch Standing Exercise Name 1.gastroc Side bilateral Reps/Minutes 30 sec ea heel raises Side bilateral Reps/Minutes 15 on ground w/10# Manual Therapy Treatment Soft Tissue Mobilization scar Body Location lat & post scar & med proximal scar Mobilization Type Myofascial Release,Rolling Intensity/Depth Superficial Body Position Supine plantar fascia Body Location L Mobilization Type Rolling Intensity/Depth Moderate Body Position Supine Joint Mobilizations talus Joint med glide L Direction II MTP Joint 1st L Direction distraction & AP Grade II Manual Techniques PROM Type L ankle PF, DF, inversion, eversion gentle Body Position Supine Comments with gentle traction & c/r Neuro Re-Education Treatment Balance Activities Tandem Details tandem stance trials B Comments head turns SL Details SLS trials L bosu Comments 1. blue side balance w/head turns 2. blue side marches x12 B 3. blue side squats x15 4. black side balance 5. black side circles tilts DL x8 B PT-OP-R Modalities Start: 12/26/21 17:49 Freq: Status: Active Protocol: Document 02/27/22 14:33 [facility] (Rec: 02/27/22 15:39 MA [id number]) Hot Pack/Cold Pack Treatment Ice Massage Location L lateral ankle Patient Position Supine Treatment Duration (minutes) 5 Patient Tolerance Good PT-OP-T Assessment and Plan Start: 12/26/21 17:49 Freq: Status: Active Protocol: Document 05/07/22 14:47 [facility] (Rec: 05/07/22 15:16 [facility] [id number]) Physical Therapy Assessment Goals balance Assisted Goal (LTG) pt will be able to do SLS 20 sec B w/o LOB to show improved stability. 02/24-L only 2 sec 03/27-no change on L; achieved on R LTG Duration 06/27 strength Short Term Goal (STG) Pt will be indep w/HEP 02/24-updated to encourage pt to do more at home 03/27-cont to encourage inc frequency STG Duration 01/30/22 Commercial Leasing Agent Goal (LTG) Pt will score at least 5/5 on BLE MMT to show improved strength to allow pt to do typical activities w/o inc pain. 02/24-improved 03/27-improving LTG Duration 06/27 ROM Short Term Goal (STG) Pt will improve to DF to neutral on L in knee ext position. STG Duration achived 02/24 Assisted Goal (LTG) Pt will have within 5 deg ROM of L ankle to R ankle to improve pt ability to negotiate the community. 02/24-improved LTG Duration achieved 03/27 work Short Term Goal (STG) Pt will be able to return to light duty work w/pain no greater than 4/10 02/24-pt went straight to full duty and is noting a lot of pain 03/27-05/10 w/work STG Duration 04/27 Commercial Leasing Agent Goal (LTG) Pt will be able to return to full duty work w/o L foot/ ankle pain greater than 2/10 LTG Duration 05/28 gardening Short Term Goal (STG) Pt will be able to get up/down from the ground indep to allow for gardening. STG Duration achieved but feels it is difficult Commercial Leasing Agent Goal (LTG) Pt will be able to do all tasks for gardening w/o inc pain. 03/27-some pain LTG Duration 06/27 LEFS Impairment 23/80 Short Term Goal (STG) Pt will improved LEFS to at least 45/80 to show improved function. STG Duration achieved Commercial Leasing Agent Goal (LTG) Pt will improved LEFS to at least 70/80 to show improved function. 03/27-52 LTG Duration 04/01/22 Assessment Summary Assessment Reviewed w/pt how circles during lunch and calf stretches at smoke break may help dec pain and would be easy to add to her day. Some cues required with exercises and encouraged pt r: okay to feel heel raises in calf. Physical Therapy Plan Frequency and Duration Frequency of Treatment 1-2x/week Duration of Treatment 3 months Plan of Care Start Date 03/27/22 Plan of Care End Date 06/27/22 Next Visit Focus/Plan Next Note Type Treatment Note Next Visit Plan cont to advance balance, manualf or foot mobility
--- NOTE | 2022-05-12 15:17 | PT.OTN ---
Current Diagnoses Hallux valgus (acquired), left foot (05/12/22) Flat foot [pes planus] (acquired), unspecified foot (05/12/22) Other acquired deformities of left foot (05/12/22) Difficulty in walking, not elsewhere classified (05/12/22) Other abnormalities of gait and mobility (05/12/22) Weakness (05/12/22) Physical Therapy Treatment Note PT-OP-A Visit Information Start: 12/26/21 17:49 Freq: Status: Active Protocol: Document 05/12/22 14:40 [facility] (Rec: 05/12/22 15:17 [facility] [id number]) Out-Patient Physical Therapy Visit Information Visit Information Visit Type Treatment Note Visit Note 24 visits in a year Visit Start Time 14:37 Visit Stop Time 15:15 Total Visit Minutes 38 Visit Number 20 Number of GRIEF COUNSELOR Visits 0 PT-OP-B Current Condition Start: 12/26/21 17:49 Freq: Status: Active Protocol: Document 12/30/21 15:18 [facility] (Rec: 12/30/21 16:31 [facility] [id number]) Current Condition History of Current Condition Onset Date Sep 13 sx Current Complaints s/p L foot surgery History of Current Condition Pt reports foot pain all the time since injury jumping on tramp in where she sprained ankle. She was getting really painful to walk so she couldn 't do her duties for work. 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 She sees Dr. Dao tomorrow. Pt has been wearing her post op shoe mostly but is allowed to wear her sneakers but they feel too tight. Pt likes to color, going to [employer] study, gardening, going for walks ( was limited prior to surgery d /t pain). No other history of joint pain. Has not tried much walking. Prior Treatments and Tests surgery Aug-L foot medial calcaneal slide osteotomy w/Alvarez Calcaneal osteotomy, correction of L hallux valgus w/arthrodesis of first tartsometatarsal jt, L bunion correction, L gastroc recession Treatment Goals Patient/Caregiver Goals Be able to go up/down ladder cart while carrying heavy objects to stock things, start gardening, be able to get up/ down from the ground indep, be able to go for walks, get a good workout routine for good fitness habits Personal Factors Other Personal Factors That May Effect depression, anxiety, Therapy/Recovery schitzophrenia, hx drug abus PT-OP-C Subjective Start: 12/26/21 17:49 Freq: Status: Active Protocol: Document 05/12/22 14:40 [facility] (Rec: 05/12/22 15:17 [facility] [id number]) OP-PT Subjective Patient Comments Patient Comments Pt reports she is transitioning to part-time 5 hour days soon. Notes she has not done exercises recently. sore today from work PT-OP-F Manual Assessment Start: 12/26/21 17:49 Freq: Status: Active Protocol: Document 12/30/21 15:18 [facility] (Rec: 12/30/21 16:31 [facility] [id number]) Manual Assessments Soft Tissue Assessment Soft Tissue Mobility Assessment Pt still has some scabbing towards ant aspect of lat scar and med scar Other Manual Assessments Other Manual Assessments 21.1 cm L MT base R 20.9 25.3 cm L malleoli R 24.1 PT-OP-G Mobility & Gait Start: 12/26/21 17:49 Freq: Status: Active Protocol: Document 12/30/21 15:18 [facility] (Rec: 12/30/21 16:31 [facility] [id number]) OP Gait Assessment Comments Gait Comments Dec stance time on LLE and no push off LLE, slow gait PT-OP-K Range of Motion Start: 12/26/21 17:49 Freq: Status: Active Protocol: Document 03/27/22 13:47 [facility] (Rec: 03/27/22 15:21 [facility] [id number]) Ankle and Foot Goniometric Range of Motion Ankle and Foot Left Active Dorsiflexion with Knee Flexed 5 Dorsiflexion with Knee Extended 5 Plantarflexion 30 Inversion 5 Eversion 10 PT-OP-L Special Tests Start: 12/26/21 17:49 Freq: Status: Active Protocol: Document 12/30/21 15:18 [facility] (Rec: 12/30/21 16:31 [facility] [id number]) Special Tests Other Special Tests Special Tests 45 deg R HS tightness SLR, 64 Deg L PT-OP-M Strength Start: 12/26/21 17:49 Freq: Status: Active Protocol: Document 03/27/22 13:47 [facility] (Rec: 03/27/22 15:21 [facility] [id number]) Hip Strength Hip Manual Muscle Testing Right Flexion (L2) 5 Normal Extension (S1) 4 Good Abduction 4 Good External Rotation 5 Normal Internal Rotation 5 Normal Left Flexion (L2) 4+ Good+ Extension (S1) 4 Good Abduction 4+ Good+ Adduction 4 Good External Rotation 4+ Good+ Internal Rotation 4- Good- Knee Strength Knee Manual Muscle Testing Right Flexion (S2) 5 Normal Extension (L3) 5 Normal Left Flexion (S2) 5 Normal Extension (L3) 5 Normal Ankle/Foot Strength Ankle and Foot Manual Muscle Testing Right Dorsiflexion (L4) 5 Normal Plantarflexion (S1) 5 Normal Inversion 5 Normal Eversion (S1) 5 Normal Comments 20 heel raises Left Dorsiflexion (L4) 4+ Good+ Plantarflexion (S1) 3- Fair- Inversion 3+ Fair+ Eversion (S1) 4 Good Comments unable to do heel raises PT-OP-Q Treatments Start: 12/26/21 17:49 Freq: Status: Active Protocol: Document 05/12/22 14:40 [facility] (Rec: 05/12/22 15:17 [facility] [id number]) Therapeutic Exercises Sitting Exercises stretch Sitting Exercise Name plantar fascia Side left Reps/Minutes 30 sec ROM Sitting Exercise Name circles Side bilateral Reps/Minutes 8 ea Standing Exercises arch lift Side bilateral Reps/Minutes 10 DF Standing Exercise Name back on wall Side bilateral Reps/Minutes 20 stretch Standing Exercise Name 1.gastroc Side bilateral Reps/Minutes 30 sec ea Manual Therapy Treatment Soft Tissue Mobilization calf Body Location L Mobilization Type Myofascial Release Intensity/Depth Moderate scar Body Location lat & post scar & med proximal scar Mobilization Type Myofascial Release,Rolling Intensity/Depth Superficial Body Position Supine plantar fascia Body Location L Mobilization Type Rolling Intensity/Depth Moderate Body Position Supine Joint Mobilizations calcaneus Joint L distraction Grade II talus Joint L distaction Direction II MTP Joint 1st L Direction distraction & AP Grade II Manual Techniques PROM Type L ankle PF, DF, inversion, eversion gentle Body Position Supine Comments with gentle traction & c/r Neuro Re-Education Treatment Balance Activities bosu Comments 1. blue side balance w/head turns 2. blue side marches x12 B 3. blue side squats x15 4. black side balance w/head turns 5. black side circles tilts DL x5 B PT-OP-R Modalities Start: 12/26/21 17:49 Freq: Status: Active Protocol: Document 02/27/22 14:33 [facility] (Rec: 02/27/22 15:39 [facility] [id number]) Hot Pack/Cold Pack Treatment Ice Massage Location L lateral ankle Patient Position Supine Treatment Duration (minutes) 5 Patient Tolerance Good PT-OP-T Assessment and Plan Start: 12/26/21 17:49 Freq: Status: Active Protocol: Document 05/12/22 14:40 [facility] (Rec: 05/12/22 15:17 [facility] [id number]) Physical Therapy Assessment Goals balance Smudger Goal (LTG) pt will be able to do SLS 20 sec B w/o LOB to show improved stability. 02/24-L only 2 sec 03/27-no change on L; achieved on R LTG Duration 06/27 strength Short Term Goal (STG) Pt will be indep w/HEP 02/24-updated to encourage pt to do more at home 03/27-cont to encourage inc frequency STG Duration 01/30/22 [facility] Goal (LTG) Pt will score at least 5/5 on BLE MMT to show improved strength to allow pt to do typical activities w/o inc pain. 02/24-improved 03/27-improving LTG Duration 06/27 ROM Short Term Goal (STG) Pt will improve to DF to neutral on L in knee ext position. STG Duration achived 02/24 Smudger Goal (LTG) Pt will have within 5 deg ROM of L ankle to R ankle to improve pt ability to negotiate the community. 02/24-improved LTG Duration achieved 03/27 work Short Term Goal (STG) Pt will be able to return to light duty work w/pain no greater than 4/10 02/24-pt went straight to full duty and is noting a lot of pain 03/27-05/10 w/work STG Duration 04/27 [facility] Goal (LTG) Pt will be able to return to full duty work w/o L foot/ ankle pain greater than 2/10 LTG Duration 05/28 gardening Short Term Goal (STG) Pt will be able to get up/down from the ground indep to allow for gardening. STG Duration achieved but feels it is difficult Smudger Goal (LTG) Pt will be able to do all tasks for gardening w/o inc pain. 03/27-some pain LTG Duration 06/27 LEFS Impairment 23/80 Short Term Goal (STG) Pt will improved LEFS to at least 45/80 to show improved function. STG Duration achieved [facility] Goal (LTG) Pt will improved LEFS to at least 70/80 to show improved function. 03/27- LTG Duration 04/01/22 Assessment Summary Assessment Cues still required w/ exercises and still encouraged to add streches in at breaks during work. Pt did well with balance though today and used rail less w/use of bosu. Physical Therapy Plan Frequency and Duration Frequency of Treatment 1-2x/week Duration of Treatment 3 months Plan of Care Start Date 03/27/22 Plan of Care End Date 06/27/22 Next Visit Focus/Plan Next Note Type Treatment Note Next Visit Plan cont to advance balance, manualf or foot mobility
--- NOTE | 2022-08-05 12:01 | PT.OPDS ---
Current Diagnoses Hallux valgus (acquired), left foot (05/12/22) Flat foot [pes planus] (acquired), unspecified foot (05/12/22) Other acquired deformities of left foot (05/12/22) Difficulty in walking, not elsewhere classified (05/12/22) Other abnormalities of gait and mobility (05/12/22) Weakness (05/12/22) Visit Care Team Role Provider Type Milton Cuevas MD Family Provider Non-Staff Specialty: Family Practice Address: [address] [place] [address], [address], [place], [address] Email: Pipo Whyte DPM Attending Provider Non-Staff Primary Care Provider Referring Provider Specialty: Podiatry Address: [address] [place] [address], [phone] Email: Visit Number Visit Number 20 Discharge Summary PT-OP-B Current Condition Start: 12/26/21 17:49 Freq: Status: Active Protocol: Document 12/30/21 15:18 [facility] (Rec: 12/30/21 16:31 [facility] [id number]) Current Condition History of Current Condition Onset Date Sep 13 sx Current Complaints s/p L foot surgery History of Current Condition Pt reports foot pain all the time since injury jumping on tramp in where she sprained ankle. She was getting really painful to walk so she couldn 't do her duties for work. 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 She sees Dr. Dao tomorrow. Pt has been wearing her post op shoe mostly but is allowed to wear her sneakers but they feel too tight. Pt likes to color, going to [employer] study, gardening, going for walks ( was limited prior to surgery d /t pain). No other history of joint pain. Has not tried much walking. Prior Treatments and Tests surgery Aug-L foot medial calcaneal slide osteotomy w/Alvarez Calcaneal osteotomy, correction of L hallux valgus w/arthrodesis of first tartsometatarsal jt, L bunion correction, L gastroc recession Treatment Goals Patient/Caregiver Goals Be able to go up/down ladder cart while carrying heavy objects to stock things, start gardening, be able to get up/ down from the ground indep, be able to go for walks, get a good workout routine for good fitness habits Personal Factors Other Personal Factors That May Effect depression, anxiety, Therapy/Recovery schitzophrenia, hx drug abus PT-OP-C Subjective Start: 12/26/21 17:49 Freq: Status: Active Protocol: Document 05/12/22 14:40 [facility] (Rec: 05/12/22 15:17 [facility] [id number]) OP-PT Subjective Patient Comments Patient Comments Pt reports she is transitioning to part-time 5 hour days soon. Notes she has not done exercises recently. sore today from work PT-OP-F Manual Assessment Start: 12/26/21 17:49 Freq: Status: Active Protocol: Document 12/30/21 15:18 [facility] (Rec: 12/30/21 16:31 [facility] [id number]) Manual Assessments Soft Tissue Assessment Soft Tissue Mobility Assessment Pt still has some scabbing towards ant aspect of lat scar and med scar Other Manual Assessments Other Manual Assessments 21.1 cm L MT base R 20.9 25.3 cm L malleoli R 24.1 PT-OP-G Mobility & Gait Start: 12/26/21 17:49 Freq: Status: Active Protocol: Document 12/30/21 15:18 [facility] (Rec: 12/30/21 16:31 [facility] [id number]) OP Gait Assessment Comments Gait Comments Dec stance time on LLE and no push off LLE, slow gait PT-OP-K Range of Motion Start: 12/26/21 17:49 Freq: Status: Active Protocol: Document 03/27/22 13:47 [facility] (Rec: 03/27/22 15:21 [facility] [id number]) Ankle and Foot Goniometric Range of Motion Ankle and Foot Left Active Dorsiflexion with Knee Flexed 5 Dorsiflexion with Knee Extended 5 Plantarflexion 30 Inversion 5 Eversion 10 PT-OP-L Special Tests Start: 12/26/21 17:49 Freq: Status: Active Protocol: Document 12/30/21 15:18 [facility] (Rec: 12/30/21 16:31 [facility] [id number]) Special Tests Other Special Tests Special Tests 45 deg R HS tightness SLR, 64 Deg L PT-OP-M Strength Start: 12/26/21 17:49 Freq: Status: Active Protocol: Document 03/27/22 13:47 [facility] (Rec: 03/27/22 15:21 [facility] [id number]) Hip Strength Hip Manual Muscle Testing Right Flexion (L2) 5 Normal Extension (S1) 4 Good Abduction 4 Good External Rotation 5 Normal Internal Rotation 5 Normal Left Flexion (L2) 4+ Good+ Extension (S1) 4 Good Abduction 4+ Good+ Adduction 4 Good External Rotation 4+ Good+ Internal Rotation 4- Good- Knee Strength Knee Manual Muscle Testing Right Flexion (S2) 5 Normal Extension (L3) 5 Normal Left Flexion (S2) 5 Normal Extension (L3) 5 Normal Ankle/Foot Strength Ankle and Foot Manual Muscle Testing Right Dorsiflexion (L4) 5 Normal Plantarflexion (S1) 5 Normal Inversion 5 Normal Eversion (S1) 5 Normal Comments 20 heel raises Left Dorsiflexion (L4) 4+ Good+ Plantarflexion (S1) 3- Fair- Inversion 3+ Fair+ Eversion (S1) 4 Good Comments unable to do heel raises PT-OP-T Assessment and Plan Start: 12/26/21 17:49 Freq: Status: Active Protocol: Document 08/05/22 12:00 [facility] (Rec: 08/05/22 12:01 [facility] [id number]) Physical Therapy Assessment Goals balance Half-Way Goal (LTG) pt will be able to do SLS 20 sec B w/o LOB to show improved stability. 02/24-L only 2 sec 03/27-no change on L; achieved on R LTG Duration 06/27 strength Short Term Goal (STG) Pt will be indep w/HEP 02/24-updated to encourage pt to do more at home 03/27-cont to encourage inc frequency STG Duration 01/30/22 Geriatric Physician Goal (LTG) Pt will score at least 5/5 on BLE MMT to show improved strength to allow pt to do typical activities w/o inc pain. 02/24-improved 03/27-improving LTG Duration 06/27 ROM Short Term Goal (STG) Pt will improve to DF to neutral on L in knee ext position. STG Duration achived 02/24 Half-Way Goal (LTG) Pt will have within 5 deg ROM of L ankle to R ankle to improve pt ability to negotiate the community. 02/24-improved LTG Duration achieved 03/27 work Short Term Goal (STG) Pt will be able to return to light duty work w/pain no greater than 4/10 02/24-pt went straight to full duty and is noting a lot of pain 03/27-05/10 w/work STG Duration 04/27 Geriatric Physician Goal (LTG) Pt will be able to return to full duty work w/o L foot/ ankle pain greater than 2/10 LTG Duration 05/28 gardening Short Term Goal (STG) Pt will be able to get up/down from the ground indep to allow for gardening. STG Duration achieved but feels it is difficult Geriatric Physician Goal (LTG) Pt will be able to do all tasks for gardening w/o inc pain. 03/27-some pain LTG Duration 06/27 LEFS Impairment 23/80 Short Term Goal (STG) Pt will improved LEFS to at least 45/80 to show improved function. STG Duration achieved Half-Way Goal (LTG) Pt will improved LEFS to at least 70/80 to show improved function. 03/27- LTG Duration 04/01/22 Assessment Summary Assessment pt had made slow but steady progress with PT but cancelled her last appt in may and did not schedule further. She has HEP and has been encouraged throughout time at PT to be consistant w/HEP. DC d/t no longer attending PT. Pt last seen 05/12 Physical Therapy Plan Discharge Physical Therapy Discharge Reasons No Longer Attending PT
== END 2022-08-07 13:43 | disposition home or self-care (01) ==
LOC: PHYS 14:30
PROVIDERS: Family Provider Family Medicine; PCP Podiatrist Foot & Ankle Surgery; Referring Provider Podiatrist Foot & Ankle Surgery; Visit Provider Podiatrist Foot & Ankle Surgery
DX: M20.12 Hallux valgus (acquired), left foot (principal); M21.6X2 Other acquired deformities of left foot; M21.40 Flat foot [pes planus] (acquired), unspecified foot; R26.2 Difficulty in walking, not elsewhere classified; R53.1 Weakness; R26.89 Other abnormalities of gait and mobility
CPT/HCPCS: 97110; 97112; 97116; 97140; 97162; 97535